=== PATIENT | male | born 1955 | race Caucasian/White ===

== ENCOUNTER 2017-06-11 05:06 | Emergency (ER) | payer MEDICAID, OTHER ==
[~2017-06-11] VITALS: Ht 180.3 cm; Wt 99.8 kg
[~2017-06-11 05:06] MED LIST: OXYC-589 PO
[2017-06-11] MEDS ORDERED: NITROGLYCERIN 0.4 MG SL TAB SL ONE (05:45)
[2017-06-11 06:35] LABS: Basophils # (auto) 0 uL; Basophils % (auto) 0.4 % (0.0-2.0); CONDITION Y; Eosinophils # (auto) 0.4 uL; Eosinophils % (auto) 4.6 % (0.0-7.0); Hematocrit 41.8 % (41.0-53.0); Hemoglobin 14.4 g/dL (13.5-17.5); Lymphocytes # (auto) 1.3 uL; Lymphocytes % (auto) 13.6 % (10.0-50.0); Mean Corpuscular Hemoglobin 30.8 pg (28.0-32.0); Mean Corpuscular Hgb Conc. 34.5 g/dL (32.0-36.0); Mean Corpuscular Volume 89.1 fL (80.0-100.0); Mean Platelet Volume 8.3 fL (7.4-10.4); Monocytes # (auto) 0.9 uL; Monocytes % (auto) 8.8 % (0.0-12.0); Neutrophils # (auto) 7.1 uL; Neutrophils % (auto) 72.6 % (37.0-80.0); Platelet Count (auto) 194 10^3/uL (140-450); Red Cell Distribution Width 13.9 % (11.6-16.0); White Blood Cell 9.8 10^3/uL (4.4-10.8)
[2017-06-11 06:57] LABS: INR 0.94 (0.9-1.15); Partial Thromboplastin Time 26.1 sec (22.64-33.71); Prothrombin Time 10.2 sec (9.37-12.3)
[2017-06-11 07:08] LABS: Albumin 3.7 g/dL (3.4-5.0); Alkaline Phosphatase 71 U/L (45-117); Anion Gap 9 (5-15); Aspartate Aminotransferase 18 U/L (15-37); BUN/Creatinine Ratio 19.8; Bilirubin, Total 0.8 mg/dL (0.2-1.0); Blood Urea Nitrogen 19 mg/dL (7-18); Carbon Dioxide 22 mmol/L (21-32); Chloride 107 mmol/L (98-107); GFR African American 102 mL/min; GFR Non-African American 84 mL/min; Glucose 112 mg/dL (74-106); Magnesium 2.5 mg/dL (1.6-2.6); Potassium 3.8 mmol/L (3.5-5.1); Sodium 138 mmol/L (136-145); Total Protein 7.1 g/dL (6.4-8.2)
[2017-06-11 07:54] VITALS: BP 141/73
[2017-06-11] MEDS ORDERED: IOHEXOL 350 MG/ML 100ML IJ ONE (08:13)
[2017-06-11 08:57] LABS: B-Type Natriuretic Peptide 23.1 pg/mL (0-100); Temperature: 23.5 C (20.0-25.0)
== END 2017-06-11 10:02 | disposition home or self-care (01) ==
LOC: ER 05:06
DX: R07.89 Other chest pain (principal); M54.9 Dorsalgia, unspecified; R06.02 Shortness of breath; Z85.841 Personal history of malignant neoplasm of brain
CPT/HCPCS: 36415; 71010; 71275; 80053; 83735; 83880; 84484; 85025; 85379; 85610; 85730; 93005; 99285; Q9967

== ENCOUNTER 2017-07-10 23:19 | Emergency (ER) | payer OTHER ==
[~2017-07-10] VITALS: Ht 180.3 cm; Wt 99.8 kg
[2017-07-11 00:30] LABS: Basophils # (auto) 0.1 uL; Basophils % (auto) 0.8 % (0.0-2.0); Eosinophils # (auto) 0.4 uL; Eosinophils % (auto) 4.7 % (0.0-7.0); Hematocrit 45.8 % (41.0-53.0); Hemoglobin 15.2 g/dL (13.5-17.5); Lymphocytes # (auto) 1.4 uL; Lymphocytes % (auto) 17.7 % (10.0-50.0); Mean Corpuscular Hemoglobin 29.5 pg (28.0-32.0); Mean Corpuscular Hgb Conc. 33.1 g/dL (32.0-36.0); Mean Corpuscular Volume 88.9 fL (80.0-100.0); Mean Platelet Volume 7.5 fL (7.4-10.4); Monocytes # (auto) 0.6 uL; Monocytes % (auto) 7.9 % (0.0-12.0); Neutrophils # (auto) 5.6 uL; Neutrophils % (auto) 68.9 % (37.0-80.0); Platelet Count (auto) 187 10^3/uL (140-450); Red Cell Distribution Width 12.9 % (11.6-16.0); White Blood Cell 8.1 10^3/uL (4.4-10.8)
[2017-07-11 00:44] LABS: INR 0.95 (0.9-1.15); Partial Thromboplastin Time 25.4 sec (22.64-33.71); Prothrombin Time 10.4 sec (9.37-12.3)
[2017-07-11 00:53] LABS: Albumin 3.9 g/dL (3.4-5.0); BUN/Creatinine Ratio 13.8; Calcium 8.8 mg/dL (8.5-10.1); Potassium 3.8 mmol/L (3.5-5.1)
[2017-07-11 00:56] LABS: Total Protein 7.5 g/dL (6.4-8.2)
[2017-07-11] MEDS ORDERED: SODIUM CHLORIDE 0.9% 1,000 ML IV ONE (08:01)
[2017-07-11] MEDS ORDERED: METOCLOPRAMIDE HCL 5MG/ml INJ 2ml VIAL IV ONE (08:15)
[2017-07-11] MEDS ORDERED: KETOROLAC TROMETH 30 MG/ML 1ML VIAL IV ONE (08:15)
[2017-07-11 09:58] VITALS: BP 130/91
== END 2017-07-11 09:48 | disposition home or self-care (01) ==
LOC: ER 23:19
DX: R51 Headache (principal); I10 Essential (primary) hypertension; Z86.011 Personal history of benign neoplasm of the brain; Z86.73 Personal history of transient ischemic attack (TIA), and cerebral infarction without residual deficits
CPT/HCPCS: 36415; 70450; 71020; 80053; 83735; 85025; 85610; 85730; 93005; 94761; 96361; 96374; 96375; 99285; J1885; J2765; J7030

== ENCOUNTER 2018-01-23 17:27 | Inpatient (IN) | payer OTHER ==
[~2018-01-23] VITALS: Ht 180.3 cm; Wt 102.0 kg
[2018-01-23 19:09] LABS: Basophils # (auto) 0.1 uL; Basophils % (auto) 1.5 % (0.0-2.0); Eosinophils # (auto) 0.3 uL; Eosinophils % (auto) 4.1 % (0.0-7.0); Hematocrit 45.1 % (41.0-53.0); Lymphocytes # (auto) 1.8 uL; Lymphocytes % (auto) 23.7 % (10.0-50.0); Mean Corpuscular Hgb Conc. 33.2 g/dL (32.0-36.0); Mean Corpuscular Volume 90.2 fL (80.0-100.0); Monocytes # (auto) 0.5 uL; Monocytes % (auto) 7.3 % (0.0-12.0); Neutrophils # (auto) 4.8 uL; Neutrophils % (auto) 63.4 % (37.0-80.0); Platelet Count (auto) 183 10^3/uL (140-450); Red Cell Distribution Width 13.8 % (11.8-14.3); White Blood Cell 7.5 10^3/uL (4.4-10.8)
[2018-01-23 19:44] LABS: Alanine Aminotransferase 42 U/L (16-61); Albumin 4.1 g/dL (3.4-5.0); Alkaline Phosphatase 69 U/L (45-117); Anion Gap 9 (5-15); Aspartate Aminotransferase 25 U/L (15-37); BUN/Creatinine Ratio 14.7; Bilirubin, Total 0.8 mg/dL (0.2-1.0); Blood Urea Nitrogen 15 mg/dL (7-18); Carbon Dioxide 24 mmol/L (21-32); Chloride 106 mmol/L (98-107); GFR African American 95 mL/min; GFR Non-African American 78 mL/min; Glucose 120 mg/dL (74-106); Magnesium 2.7 mg/dL (1.6-2.6); Potassium 3.7 mmol/L (3.5-5.1); Sodium 139 mmol/L (136-145); Total Protein 7.7 g/dL (6.4-8.2)
[2018-01-23] MEDS ORDERED: MORPHINE SULFATE 4 MG/ML SYR/VIAL IV ONE (21:00)
[2018-01-23] MEDS ORDERED: ONDANSETRON HCL 4 MG/2 ML VIAL IV ONE (21:00)
[2018-01-23] MEDS ORDERED: ASPirin 325 MG TAB PO ONE (21:00)
[2018-01-24] MEDS ORDERED: ASPirin 81 mg TAB ONE (01:55)
[2018-01-24] MEDS ORDERED: ASPirin 81 mg TAB PO ONE (02:00)
[2018-01-24 02:20] LABS: Urine Bacteria NONE SEEN /hpf (None Seen); Urine Blood Negative /uL (Negative); Urine Mucus FEW (None Seen); Urine Specific Gravity 1.027 (1.001-1.035); Urine WBC 2 /hpf (0 - 3)
[2018-01-24] MEDS ORDERED: NITROGLYCERIN 0.4 MG SL TAB SL PRN (02:45)
[2018-01-24] MEDS ORDERED: ONDANSETRON HCL 4 MG/2 ML VIAL IV PRN (02:45)
[2018-01-24] MEDS ORDERED: ACETAMINOPHEN 325 MG TAB PO PRN (02:45)
[2018-01-24] MEDS ORDERED: cloNIDine HCL 0.1 MG TAB PO PRN (02:45)
[2018-01-24] MEDS ORDERED: MORPHINE SULFATE 4 MG/ML SYR/VIAL IV PRN (02:45)
[2018-01-24] MEDS ORDERED: HYDROcodone-ACET 5/325MG TAB PO PRN (02:45)
[2018-01-24] MEDS ORDERED: TEMAZEPAM 15 MG CAP PO PRN (02:45)
[2018-01-24 05:00] VITALS: BP 143/81
[2018-01-24 05:30] VITALS: BP 143/81
[2018-01-24 08:44] VITALS: BP 131/76
[2018-01-24] MEDS ORDERED: ENOXAPARIN SOD 40 MG/0.4 ML SYRINGE SC SCH (10:00)
[2018-01-24] MEDS ORDERED: ASPirin 81 mg TAB PO SCH (10:00)
[2018-01-24] MEDS ORDERED: METOPROLOL TARTRATE 25 MG TAB PO SCH (10:00)
[2018-01-24] MEDS ORDERED: FAMOTIDINE 20 MG TAB PO SCH (10:00)
[2018-01-24 12:00] VITALS: BP 136/91
[2018-01-24] MEDS ORDERED: AML5T PO (13:44)
[2018-01-24 14:00] VITALS: BP 136/91
== END 2018-01-24 15:00 | disposition home or self-care (01) | DRG 203 ==
LOC: ER 17:40 → TELE 17:41 → TELE-WESTW 01-24 04:57
PROVIDERS: ADMIT Nurse Practitioner; ATTEND Internal Medicine
DX: R07.89 Other chest pain (principal); I10 Essential (primary) hypertension; G47.00 Insomnia, unspecified; E66.9 Obesity, unspecified; Z68.31 Body mass index [BMI] 31.0-31.9, adult; Z83.3 Family history of diabetes mellitus; Z85.72 Personal history of non-Hodgkin lymphomas; Z86.711 Personal history of pulmonary embolism; Z85.841 Personal history of malignant neoplasm of brain; Z85.840 Personal history of malignant neoplasm of eye
CPT/HCPCS: 36415; 70450; 71046; 80053; 81001; 83735; 83880; 84484; 85025; 85379; 93005; 93306; 96374; 96375; J2405

== ENCOUNTER 2018-06-28 07:58 | Emergency (ER) | payer OTHER ==
[~2018-06-28] VITALS: Ht 180.3 cm; Wt 104.3 kg
[~2018-06-28 07:58] MED LIST changes: +AML5T PO; -OXYC-589 PO
[2018-06-28 08:38] LABS: Basophils # (auto) 0.1 uL; Basophils % (auto) 1.2 % (0.0-2.0); Eosinophils # (auto) 0.3 uL; Eosinophils % (auto) 2.9 % (0.0-7.0); Hematocrit 43.4 % (41.0-53.0); Lymphocytes # (auto) 1.1 uL; Lymphocytes % (auto) 11.8 % (10.0-50.0); Mean Corpuscular Hgb Conc. 34.6 g/dL (32.0-36.0); Mean Corpuscular Volume 89.6 fL (80.0-100.0); Monocytes # (auto) 0.8 uL; Monocytes % (auto) 8.7 % (0.0-12.0); Neutrophils # (auto) 7.3 uL; Neutrophils % (auto) 75.4 % (37.0-80.0); Platelet Count (auto) 177 10^3/uL (140-450); Red Blood Cells 4.84 10^6/uL (4.5-5.90); Red Cell Distribution Width 13.9 % (11.8-14.3); White Blood Cell 9.7 10^3/uL (4.4-10.8)
[2018-06-28] MEDS ORDERED: ONDANSETRON HCL 4 MG/2 ML VIAL IV ONE (08:45)
[2018-06-28] MEDS ORDERED: MORPHINE SULFATE 4 MG/ML SYR/VIAL IV ONE (08:45)
[2018-06-28 09:12] LABS: Alanine Aminotransferase 42 U/L (16-61); Albumin 3.8 g/dL (3.4-5.0); Alkaline Phosphatase 80 U/L (45-117); Anion Gap 8 (5-15); Aspartate Aminotransferase 20 U/L (15-37); BUN/Creatinine Ratio 11.7; Bilirubin, Total 1.4 mg/dL (0.2-1.0); Blood Urea Nitrogen 14 mg/dL (7-18); Calcium 8.5 mg/dL (8.5-10.1); Carbon Dioxide 22 mmol/L (21-32); Chloride 108 mmol/L (98-107); GFR African American 78 mL/min; GFR Non-African American 65 mL/min; Glucose 117 mg/dL (74-106); Sodium 138 mmol/L (136-145); Total Protein 7.9 g/dL (6.4-8.2)
[2018-06-28 09:14] LABS: Amylase 42 U/L (25-115); Lipase 142 U/L (73-393)
[2018-06-28] MEDS ORDERED: SODIUM CHLORIDE 0.9% 1,000 ML IV ONE (09:15)
[2018-06-28] MEDS ORDERED: HYDROcodone-ACET 5/325MG TAB PO ONE (11:15)
[2018-06-28 12:03] VITALS: BP 137/79
[2018-06-28 12:37] LABS: Urine Bacteria NONE SEEN /hpf (None Seen); Urine Blood Negative /uL (Negative); Urine Mucus FEW (None Seen); Urine Specific Gravity 1.024 (1.001-1.035); Urine WBC 3 /hpf (0 - 3)
== END 2018-06-28 13:25 | disposition home or self-care (01) ==
LOC: ER 07:58
DX: K80.20 Calculus of gallbladder without cholecystitis without obstruction (principal); R07.89 Other chest pain; R11.2 Nausea with vomiting, unspecified
CPT/HCPCS: 36415; 74176; 80053; 81001; 82150; 83690; 84484; 85025; 93005; 96361; 96374; 96375; 99285; J2270; J2405; J7030

== ENCOUNTER 2018-09-15 06:16 | Inpatient (IN) | payer OTHER ==
[~2018-09-15] VITALS: Ht 180.3 cm; Wt 99.3 kg
[2018-09-15 09:14] LABS: Basophils # (auto) 0.1 uL; Basophils % (auto) 1.1 % (0.0-2.0); Eosinophils # (auto) 0.1 uL; Eosinophils % (auto) 1.2 % (0.0-7.0); Hematocrit 44.1 % (41.0-53.0); Hemoglobin 14.8 g/dL (13.5-17.5); Lymphocytes # (auto) 1.7 uL; Lymphocytes % (auto) 15.8 % (10.0-50.0); Mean Corpuscular Hemoglobin 30.4 pg (28.0-32.0); Mean Corpuscular Hgb Conc. 33.5 g/dL (32.0-36.0); Mean Corpuscular Volume 90.7 fL (80.0-100.0); Monocytes # (auto) 0.7 uL; Monocytes % (auto) 6.7 % (0.0-12.0); Neutrophils % (auto) 75.2 % (37.0-80.0); Platelet Count (auto) 186 10^3/uL (140-450); Red Blood Cells 4.86 10^6/uL (4.5-5.90); White Blood Cell 10.7 10^3/uL (4.4-10.8)
[2018-09-15] MEDS ORDERED: HEPARIN SODIUM (PORCINE) 5000 UNITS/ML 1ML VIAL IV ONE (09:15)
[2018-09-15 09:26] LABS: Calcium 9.1 mg/dL (8.5-10.1)
[2018-09-15 09:29] LABS: BUN/Creatinine Ratio 15.7; Total Protein 8.1 g/dL (6.4-8.2)
[2018-09-15] MEDS ORDERED: NITROGLYCERIN 0.4 MG SL TAB SL PRN (10:00)
[2018-09-15] MEDS ORDERED: TEMAZEPAM 15 MG CAP PO PRN (10:00)
[2018-09-15] MEDS ORDERED: MORPHINE SULFATE 4 MG/ML SYR/VIAL IV PRN ×2 (10:00)
[2018-09-15] MEDS ORDERED: ACETAMINOPHEN 325 MG TAB PO PRN (10:00)
[2018-09-15] MEDS ORDERED: DOCUSATE SOD 100 MG CAP PO PRN (10:00)
[2018-09-15] MEDS: ASCORBIC ACID 500 MG TAB PO SCH ×2 (11:01→22:10)
[2018-09-15] MEDS: ENOXAPARIN SOD 100 MG/1 ML SYRINGE SC SCH ×2 (11:01→22:10)
[2018-09-15] MEDS: ZINC SULFATE 220mg CAP or TAB PO SCH (13:57)
[2018-09-15] MEDS: MULTIPLE VITAMIN TAB PO SCH (13:57)
[2018-09-15] MEDS: SODIUM CHLOR 0.9% PF (SALINE LOCK) 10ML VIAL/SYR IV SCH ×2 (14:32→22:10)
[2018-09-15] MEDS: HYDROcodone-ACET 5/325MG TAB PO PRN (23:47)
[2018-09-16] VITALS (7 sets, daily range): BP systolic 126–150; BP diastolic 75–80
[2018-09-16 06:47] LABS: Basophils # (auto) 0.1 uL; Basophils % (auto) 0.9 % (0.0-2.0); Eosinophils # (auto) 0.2 uL; Hematocrit 43.3 % (41.0-53.0); Hemoglobin 14.6 g/dL (13.5-17.5); Lymphocytes # (auto) 1.7 uL; Lymphocytes % (auto) 21.5 % (10.0-50.0); Mean Corpuscular Hemoglobin 30.3 pg (28.0-32.0); Mean Corpuscular Hgb Conc. 33.8 g/dL (32.0-36.0); Mean Corpuscular Volume 89.5 fL (80.0-100.0); Monocytes # (auto) 0.5 uL; Monocytes % (auto) 6.3 % (0.0-12.0); Neutrophils # (auto) 5.6 uL; Neutrophils % (auto) 69.3 % (37.0-80.0); Platelet Count (auto) 189 10^3/uL (140-450); Red Blood Cells 4.84 10^6/uL (4.5-5.90); Red Cell Distribution Width 13.4 % (11.8-14.3); White Blood Cell 8.1 10^3/uL (4.4-10.8)
[2018-09-16 06:52] LABS: INR 1.01 (0.9-1.15); Prothrombin Time 10.8 sec (9.27-12.13)
[2018-09-16 06:55] LABS: Albumin 3.6 g/dL (3.4-5.0); Calcium 8.7 mg/dL (8.5-10.1); Potassium 3.8 mmol/L (3.5-5.1)
[2018-09-16 06:59] LABS: BUN/Creatinine Ratio 18.8; Bilirubin, Total 1.3 mg/dL (0.2-1.0); Total Protein 7.2 g/dL (6.4-8.2)
[2018-09-16] MEDS: SODIUM CHLOR 0.9% PF (SALINE LOCK) 10ML VIAL/SYR IV SCH ×3 (07:08→22:00)
[2018-09-16] MEDS: ENOXAPARIN SOD 100 MG/1 ML SYRINGE SC SCH ×2 (10:21→21:27)
[2018-09-16] MEDS: ASCORBIC ACID 500 MG TAB PO SCH ×2 (10:21→21:27)
[2018-09-16] MEDS: ZINC SULFATE 220mg CAP or TAB PO SCH (10:21)
[2018-09-16] MEDS: MULTIPLE VITAMIN TAB PO SCH (10:24)
[2018-09-16] MEDS ORDERED: amLODIPine BESYLATE 5 MG TAB PO ONE (10:45)
[2018-09-16] MEDS: ONDANSETRON HCL 4 MG/2 ML VIAL IV PRN ×2 (11:05→18:36)
[2018-09-16] MEDS: HYDROcodone-ACET 5/325MG TAB PO PRN ×2 (11:09→16:46)
[2018-09-16 14:04] LABS: INR 1.01 (0.9-1.15); Prothrombin Time 10.8 sec (9.27-12.13)
[2018-09-16] MEDS ORDERED: WARFARIN SODIUM 5 MG TAB PO SCH (17:00)
[2018-09-16 17:23] LABS: Urine Bacteria NONE SEEN /hpf (None Seen); Urine Blood Negative /uL (Negative); Urine Specific Gravity 1.027 (1.001-1.035); Urine WBC 2 /hpf (0 - 3)
[2018-09-17 05:00] VITALS: BP 142/77
[2018-09-17] MEDS: SODIUM CHLOR 0.9% PF (SALINE LOCK) 10ML VIAL/SYR IV SCH (05:54)
[2018-09-17 06:22] LABS: Basophils # (auto) 0.1 uL; Basophils % (auto) 0.7 % (0.0-2.0); Eosinophils # (auto) 0.2 uL; Eosinophils % (auto) 2.2 % (0.0-7.0); Hematocrit 44.1 % (41.0-53.0); Hemoglobin 15.3 g/dL (13.5-17.5); Lymphocytes # (auto) 1.7 uL; Lymphocytes % (auto) 17.8 % (10.0-50.0); Mean Corpuscular Hemoglobin 30.8 pg (28.0-32.0); Mean Corpuscular Hgb Conc. 34.6 g/dL (32.0-36.0); Monocytes # (auto) 0.6 uL; Monocytes % (auto) 6.1 % (0.0-12.0); Neutrophils # (auto) 6.8 uL; Neutrophils % (auto) 73.2 % (37.0-80.0); Nucleated Red Blood Cells % 0.1 %; Platelet Count (auto) 204 10^3/uL (140-450); Red Blood Cells 4.95 10^6/uL (4.5-5.90); Red Cell Distribution Width 13.9 % (11.8-14.3); White Blood Cell 9.3 10^3/uL (4.4-10.8)
[2018-09-17 06:32] LABS: Partial Thromboplastin Time 35.4 sec (23.78-33.04); Prothrombin Time 10.7 sec (9.27-12.13)
[2018-09-17 06:35] LABS: Albumin 3.5 g/dL (3.4-5.0); Calcium 9.1 mg/dL (8.5-10.1)
[2018-09-17 06:38] LABS: BUN/Creatinine Ratio 17.9
[2018-09-17 06:40] LABS: Bilirubin, Total 1.1 mg/dL (0.2-1.0); Total Protein 7.2 g/dL (6.4-8.2)
[2018-09-17 09:14] VITALS: BP 138/67
[2018-09-17] MEDS ORDERED: amLODIPine BESYLATE 5 MG TAB PO SCH (10:00)
[2018-09-17] MEDS: ASCORBIC ACID 500 MG TAB PO SCH (10:10)
[2018-09-17] MEDS: ENOXAPARIN SOD 100 MG/1 ML SYRINGE SC SCH (10:12)
[2018-09-17] MEDS: MULTIPLE VITAMIN TAB PO SCH (10:12)
[2018-09-17] MEDS: ZINC SULFATE 220mg CAP or TAB PO SCH (10:12)
[2018-09-17] MEDS: ONDANSETRON HCL 4 MG/2 ML VIAL IV PRN (11:20)
[2018-09-17 11:36] VITALS: BP 138/67
== END 2018-09-17 12:50 | disposition home or self-care (01) | DRG 197 ==
LOC: ER 06:16 → TELE 06:17 → TELE-CENTR 20:30
PROVIDERS: ADMIT Internal Medicine; ATTEND Internal Medicine
DX: I82.431 Acute embolism and thrombosis of right popliteal vein (principal); I12.9 Hypertensive chronic kidney disease with stage 1 through stage 4 chronic kidney disease, or unspecified chronic kidney disease; I82.441 Acute embolism and thrombosis of right tibial vein; N18.2 Chronic kidney disease, stage 2 (mild); Z80.3 Family history of malignant neoplasm of breast; Z85.72 Personal history of non-Hodgkin lymphomas; Z86.711 Personal history of pulmonary embolism; Z86.718 Personal history of other venous thrombosis and embolism; Z90.49 Acquired absence of other specified parts of digestive tract; Z92.21 Personal history of antineoplastic chemotherapy
CPT/HCPCS: 36415; 70450; 80053; 81001; 85025; 85610; 85730; 87081; 87086; 93971; 96374; G0378; J2405

== ENCOUNTER 2018-12-10 19:19 | Emergency (ER) | payer MEDICARE, OTHER ==
[~2018-12-10] VITALS: Ht 180.3 cm; Wt 103.9 kg
[2018-12-10 19:47] VITALS: BP 146/73
== END 2018-12-10 21:20 | disposition home or self-care (01) ==
LOC: ER 19:19
DX: S20.212A Contusion of left front wall of thorax, initial encounter (principal); Z79.899 Other long term (current) drug therapy; V49.49XA Driver injured in collision with other motor vehicles in traffic accident, initial encounter; Y92.89 Other specified places as the place of occurrence of the external cause; Y99.8 Other external cause status; Y93.89 Activity, other specified
CPT/HCPCS: 71046

== ENCOUNTER 2019-08-20 22:17 | Emergency (ER) | payer MEDICARE, OTHER ==
[~2019-08-20] VITALS: Ht 180.3 cm; Wt 106.1 kg
[2019-08-21 00:41] VITALS: BP 149/84
[2019-08-21] MEDS ORDERED: methylPREDNISolone SOD SUCC 125 MG/2 ML VL IM ONE (01:45)
== END 2019-08-21 02:45 | disposition home or self-care (01) ==
LOC: ER 22:21
DX: R04.0 Epistaxis (principal); Z79.899 Other long term (current) drug therapy; Z90.49 Acquired absence of other specified parts of digestive tract
CPT/HCPCS: 96372; 99283; J2930

== ENCOUNTER 2020-06-03 10:40 | Emergency (ER) | payer MEDICARE, OTHER ==
[~2020-06-03] VITALS: Ht 180.3 cm; Wt 106.6 kg
[2020-06-03 11:34] LABS: Basophils # (auto) 0.1 10 ^3/uL (0-0.2); Basophils % (auto) 1.1 % (0.0-2.0); Eosinophils # (auto) 0.3 10 ^3/uL (0-0.8); Eosinophils % (auto) 3.8 % (0.0-7.0); Hematocrit 45.1 % (41.0-53.0); Hemoglobin 15.5 g/dL (13.5-17.5); Lymphocytes # (auto) 1.3 10 ^3/uL (0.4-5.4); Lymphocytes % (auto) 17.6 % (10.0-50.0); Mean Corpuscular Hemoglobin 30.3 pg (28.0-32.0); Mean Corpuscular Hgb Conc. 34.3 g/dL (32.0-36.0); Mean Corpuscular Volume 88.4 fL (80.0-100.0); Monocytes # (auto) 0.5 10 ^3/uL (0-1.3); Monocytes % (auto) 6.6 % (0.0-12.0); Neutrophils # (auto) 5.3 10 ^3/uL (1.6-8.6); Neutrophils % (auto) 70.9 % (37.0-80.0); Nucleated Red Blood Cells % 0.1 %; Platelet Count (auto) 175 10^3/uL (140-450); Red Cell Distribution Width 14.7 % (11.8-14.3); White Blood Cell 7.4 10^3/uL (4.4-10.8)
[2020-06-03 11:50] LABS: INR 2.95 (0.9-1.15); Partial Thromboplastin Time 45.6 sec (23.64-32.05)
[2020-06-03 11:55] LABS: Albumin 3.7 g/dL (3.4-5.0); Calcium 8.9 mg/dL (8.5-10.1); Potassium 3.7 mmol/L (3.5-5.1)
[2020-06-03 11:58] LABS: BUN/Creatinine Ratio 11.6; Bilirubin, Total 2.2 mg/dL (0.2-1.0); Total Protein 7.4 g/dL (6.4-8.2)
[2020-06-03] MEDS ORDERED: ACETAMINOPHEN 325 MG TAB PO ONE (13:00)
[2020-06-03 15:55] VITALS: BP 134/76
== END 2020-06-03 15:57 | disposition home or self-care (01) ==
LOC: ER 10:40
DX: M79.662 Pain in left lower leg (principal); M79.661 Pain in right lower leg
CPT/HCPCS: 36415; 80053; 85025; 85379; 85610; 85730; 93970

== ENCOUNTER 2020-10-27 07:09 | Inpatient (IN) | payer MEDICARE, OTHER ==
[~2020-10-27] VITALS: Ht 180.3 cm; Wt 92.0 kg
[2020-10-27] MEDS ORDERED: SODIUM CHLORIDE 0.9% 500 ML IV ONE (07:30)
[2020-10-27 08:19] LABS: Basophils # (auto) 0 10 ^3/uL (0-0.2); Basophils % (auto) 0.4 % (0.0-2.0); Eosinophils # (auto) 0 10 ^3/uL (0-0.8); Hemoglobin 16.3 g/dL (13.5-17.5); Lymphocytes % (auto) 18.8 % (10.0-50.0); Mean Corpuscular Hemoglobin 29.4 pg (28.0-32.0); Mean Corpuscular Hgb Conc. 33.2 g/dL (32.0-36.0); Mean Corpuscular Volume 88.5 fL (80.0-100.0); Monocytes # (auto) 0.4 10 ^3/uL (0-1.3); Monocytes % (auto) 7.6 % (0.0-12.0); Neutrophils # (auto) 3.8 10 ^3/uL (1.6-8.6); Neutrophils % (auto) 73.2 % (37.0-80.0); Nucleated Red Blood Cells % 0.1 %; Platelet Count (auto) 156 10^3/uL (140-450); Red Blood Cells 5.54 10^6/uL (4.5-5.90); White Blood Cell 5.2 10^3/uL (4.4-10.8)
[2020-10-27 08:39] LABS: Albumin 3.4 g/dL (3.4-5.0); BUN/Creatinine Ratio 16.2; Magnesium 3.2 mg/dL (1.6-2.6); Potassium 3.6 mmol/L (3.5-5.1)
[2020-10-27 08:52] LABS: Bilirubin, Total 1.4 mg/dL (0.2-1.0); CRP High Sensitivity 2.94 mg/dL (< 0.3); Total Protein 7.8 g/dL (6.4-8.2)
[2020-10-27 09:25] LABS: INR 3.18 (0.9-1.15); Partial Thromboplastin Time 44.7 sec (23.0-31.2)
[2020-10-27] MEDS ORDERED: REMDESIVIR PER PHARMACY IV SCH (11:45)
[2020-10-27] MEDS ORDERED: cefTRIAXone 1GM/50ML D5W 50 ML IV ONE (12:15)
[2020-10-27] MEDS ORDERED: LABETALOL HCL 5 MG/ML 4ML SYRINGE IV PRN (12:15)
[2020-10-27] MEDS ORDERED: MORPHINE SULF INJ 2 MG/ML SYRINGE 1ML IV PRN (12:15)
[2020-10-27] MEDS ORDERED: NITROGLYCERIN 0.4 MG SL TAB SL PRN (12:15)
[2020-10-27] MEDS ORDERED: ACETAMINOPHEN 500 MG TAB PO PRN (12:15)
[2020-10-27 15:23] LABS: Urine Bacteria FEW /hpf (None Seen); Urine Blood TRACE /uL (Negative); Urine Mucus FEW (None Seen); Urine Specific Gravity 1.026 (1.001-1.035); Urine WBC 2 /hpf (0 - 3)
[2020-10-27] MEDS: SODIUM CHLORIDE 0.9% 1,000 ML IV SCH ×2 (18:43→22:02)
[2020-10-27] MEDS: BUDESONIDE (INHALATION) 180 MCG IH IN SCH (20:40)
[2020-10-27] MEDS: ALBUTEROL SULF HFA 90MCG INH 200DOSE IN SCH (20:41)
[2020-10-28 03:01] VITALS: BP 122/71
[2020-10-28] MEDS: ALBUTEROL SULF HFA 90MCG INH 200DOSE IN SCH (06:00)
[2020-10-28 06:09] LABS: INR 3.46 (0.9-1.15)
[2020-10-28 06:10] LABS: Basophils # (auto) 0.1 10 ^3/uL (0-0.2); Basophils % (auto) 0.7 % (0.0-2.0); Eosinophils # (auto) 0 10 ^3/uL (0-0.8); Hematocrit 42.9 % (41.0-53.0); Hemoglobin 14.5 g/dL (13.5-17.5); Lymphocytes # (auto) 0.7 10 ^3/uL (0.4-5.4); Lymphocytes % (auto) 10.1 % (10.0-50.0); Mean Corpuscular Hemoglobin 29.8 pg (28.0-32.0); Mean Corpuscular Hgb Conc. 33.8 g/dL (32.0-36.0); Monocytes # (auto) 0.3 10 ^3/uL (0-1.3); Monocytes % (auto) 4.5 % (0.0-12.0); Neutrophils # (auto) 5.8 10 ^3/uL (1.6-8.6); Neutrophils % (auto) 84.7 % (37.0-80.0); Nucleated Red Blood Cells % 0.2 %; Platelet Count (auto) 147 10^3/uL (140-450); Red Blood Cells 4.87 10^6/uL (4.5-5.90); White Blood Cell 6.9 10^3/uL (4.4-10.8)
[2020-10-28 06:13] LABS: Potassium 3.6 mmol/L (3.5-5.1)
[2020-10-28 06:20] LABS: Albumin 2.8 g/dL (3.4-5.0); BUN/Creatinine Ratio 19.5; Calcium 7.7 mg/dL (8.5-10.1)
[2020-10-28 06:23] LABS: Total Protein 6.5 g/dL (6.4-8.2)
[2020-10-28] MEDS: BUDESONIDE (INHALATION) 180 MCG IH IN SCH ×2 (07:10→21:42)
[2020-10-28] MEDS: cefTRIAXone 1GM/50ML D5W 50 ML IV SCH (09:45)
[2020-10-28] MEDS: SODIUM CHLORIDE 0.9% 1,000 ML IV SCH (09:45)
[2020-10-28] MEDS: CHOLECALCIFEROL (VITD3) 2,000 UNIT CAP PO SCH (10:00)
[2020-10-28] MEDS: ASCORBIC ACID 1,000 MG TAB PO SCH (10:00)
[2020-10-28] MEDS: ZINC SULFATE 220mg CAP or TAB PO SCH (10:00)
[2020-10-28] MEDS: AZITHROMYCIN 500MG/D5WorNS 250ml IV SCH (11:04)
[2020-10-28] MEDS: DexAMETHasone SOD PHOS 10MG/1ML VIAL INJ IV SCH (11:37)
[2020-10-28] MEDS ORDERED: POTASSIUM CHL 20 Meq TABLET PO ONE (12:15)
[2020-10-28] MEDS ORDERED: ENOXAPARIN SOD 40 MG/0.4 ML SYRINGE SC ONE (12:15)
[2020-10-28] MEDS ORDERED: FUROSEMIDE 40 MG/4 ML VIAL IV ONE (12:15)
--- NOTE | 2020-10-28 12:15 | NUR ---
Telemetry admit from ER SANTINO PAZ admitted to Telemetry unit after SBAR received. Patient oriented to MARK BLOOM RN primary RN, unit, room, bed, and unit policies regarding patient care and visiting hours. Patient now on continuous telemetry monitoring, tele box #86 and telemetry reading on arrival to unit is ST. Patient placed on bedside oxygen, weighed by bedscale and encouraged to call if they need something. All questions and concerns addressed, patient verbalized understanding.
[2020-10-28 13:29] VITALS: BP 133/96
[2020-10-28] MEDS ORDERED: WARF4TAB33 PO (14:28)
--- NOTE | 2020-10-28 14:49 | NUR ---
Hospitalist MD Handley at bedside, aware of patient status. Per MD Handley obtain consents for plasma and remdesivir. Consents obtained and place in front of chart. Will cont to monitor patient.
[2020-10-28] MEDS ORDERED: guaiFENesin-DM 100/10mg/5ml SYR PO PRN (15:00)
--- NOTE | 2020-10-28 15:27 | NUR ---
Mendoza catheter insertion Patient assessed and determined to be in need of mendoza catheter. Order obtained from MD Handley. Patient educated on catheter and reason for insertion. All questions answered. Mendoza catheter 16 guage [place] inserted with clean sterile technique. Patient tolerated well.
[2020-10-28 16:28] VITALS: BP 117/68
[2020-10-28] MEDS ORDERED: REMDESIVIR 200 MG in NS 210ml LOADING DOSE ADULT IV ONE (17:00)
--- NOTE | 2020-10-28 17:50 | NUR ---
REMDESIVIR PRE-INFUSION BP:116/68 HR:86 15 MIN POST INFUSION BP:105/66 HR:84
--- NOTE | 2020-10-28 18:41 | NUR ---
REMDESIVIR POST TRANSFUSION BP 94/65 HR:86
--- NOTE | 2020-10-28 19:44 | NUR ---
Opening Shift Note Assumed care of patient. Patient is asleep. No S/S of respiratory distress noted. Respirations are regular and non-labored on 10 lpm Oxymizer. Bed is in lowest position and locked, bed rails 2x, call light is within reach. Pt will be instructed on POC and to call for assistance as needed. Will continue to monitor for changes Q1hr and PRN.
[2020-10-28 20:00] VITALS: BP 106/62
[2020-10-28] MEDS: ALBUTEROL SULF HFA 90MCG INH 200DOSE IN PRN (21:43)
[2020-10-28 22:00] VITALS: BP 106/62
[2020-10-28] MEDS: ENOXAPARIN SOD 100 MG/1 ML SYRINGE SC SCH (22:20)
[2020-10-29 05:00] VITALS: BP 122/68
--- NOTE | 2020-10-29 07:30 | NUR ---
Opening Shift Note Assumed care of patient, awake and alert. No S/S of distress/SOB or pain. Instructed on POC and to call for assist PRN, will continue to monitor for changes Q1hr and PRN. Fall precautions in place per safety protocol.
[2020-10-29 07:44] LABS: Basophils # (auto) 0 10 ^3/uL (0-0.2); Basophils % (auto) 0.2 % (0.0-2.0); Eosinophils # (auto) 0 10 ^3/uL (0-0.8); Hemoglobin 14.6 g/dL (13.5-17.5); Lymphocytes # (auto) 0.4 10 ^3/uL (0.4-5.4); Lymphocytes % (auto) 6.1 % (10.0-50.0); Mean Corpuscular Hemoglobin 29.3 pg (28.0-32.0); Mean Corpuscular Hgb Conc. 33.3 g/dL (32.0-36.0); Monocytes # (auto) 0.2 10 ^3/uL (0-1.3); Monocytes % (auto) 3.5 % (0.0-12.0); Neutrophils # (auto) 6.2 10 ^3/uL (1.6-8.6); Neutrophils % (auto) 90.2 % (37.0-80.0); Platelet Count (auto) 148 10^3/uL (140-450); Red Cell Distribution Width 14.8 % (11.8-14.3); White Blood Cell 6.9 10^3/uL (4.4-10.8)
[2020-10-29 08:03] LABS: BUN/Creatinine Ratio 29.5; Calcium 8.7 mg/dL (8.5-10.1); Potassium 3.5 mmol/L (3.5-5.1)
[2020-10-29 09:00] VITALS: BP 127/71
[2020-10-29] MEDS: ALBUTEROL SULF HFA 90MCG INH 200DOSE IN PRN ×2 (09:32→22:18)
[2020-10-29] MEDS: BUDESONIDE (INHALATION) 180 MCG IH IN SCH ×2 (09:32→22:18)
[2020-10-29] MEDS: ENOXAPARIN SOD 100 MG/1 ML SYRINGE SC SCH (09:45)
[2020-10-29] MEDS: DexAMETHasone SOD PHOS 10MG/1ML VIAL INJ IV SCH (09:45)
[2020-10-29] MEDS: CHOLECALCIFEROL (VITD3) 2,000 UNIT CAP PO SCH (09:45)
[2020-10-29] MEDS: cefTRIAXone 1GM/50ML D5W 50 ML IV SCH (09:45)
[2020-10-29] MEDS: ZINC SULFATE 220mg CAP or TAB PO SCH (09:45)
[2020-10-29] MEDS: ASCORBIC ACID 1,000 MG TAB PO SCH (09:45)
[2020-10-29] MEDS ORDERED: ENOXAPARIN SOD 40 MG/0.4 ML SYRINGE SC SCH (10:00)
[2020-10-29] MEDS: AZITHROMYCIN 500MG/D5WorNS 250ml IV SCH (10:54)
[2020-10-29] MEDS ORDERED: FUROSEMIDE 40 MG/4 ML VIAL IV ONE (11:15)
[2020-10-29 11:18] LABS: INR 3.49 (0.9-1.15)
[2020-10-29 13:00] VITALS: BP 123/54
[2020-10-29 16:59] VITALS: BP 114/70
[2020-10-29] MEDS ORDERED: REMDESIVIR 100 MG in SODIUM CHL 0.9% 250 ML IV SCH (17:00)
--- NOTE | 2020-10-29 18:14 | NUR ---
REMDESIVIR PRE-INFUSION BP:112/62 HR:70 15 MIN POST-INFUSION BP:110/68 HR:69
--- NOTE | 2020-10-29 18:54 | NUR ---
REMDESIVIR POST TRANSFUSION BP 117/65 HR:68
--- NOTE | 2020-10-29 19:30 | NUR ---
Opening Shift Note Assumed care of patient. Patient is awake and oriented x 4. No S/S of respiratory distress noted, no pain reported. Respirations are even and non-labored on 11 lpm Oxymizer with SpO2 91%. Bed is in lowest position and locked, bed rails up x 2, call light is within reach. Pt will was instructed on POC and to call for assistance as needed. Will continue to monitor for changes Q1hr and PRN.
[2020-10-29 20:00] VITALS: BP 121/74
[2020-10-29 22:00] VITALS: BP 121/74
[2020-10-30] VITALS (9 sets, daily range): BP systolic 117–133; BP diastolic 62–85
[2020-10-30 05:44] LABS: Basophils # (auto) 0 10 ^3/uL (0-0.2); Basophils % (auto) 0.1 % (0.0-2.0); Eosinophils # (auto) 0 10 ^3/uL (0-0.8); Hematocrit 42.6 % (41.0-53.0); Hemoglobin 14.7 g/dL (13.5-17.5); Lymphocytes # (auto) 0.6 10 ^3/uL (0.4-5.4); Lymphocytes % (auto) 6.6 % (10.0-50.0); Mean Corpuscular Hgb Conc. 34.6 g/dL (32.0-36.0); Mean Corpuscular Volume 86.6 fL (80.0-100.0); Monocytes # (auto) 0.3 10 ^3/uL (0-1.3); Monocytes % (auto) 3.9 % (0.0-12.0); Neutrophils # (auto) 7.5 10 ^3/uL (1.6-8.6); Neutrophils % (auto) 89.4 % (37.0-80.0); Nucleated Red Blood Cells % 0.1 %; Platelet Count (auto) 185 10^3/uL (140-450); Red Blood Cells 4.91 10^6/uL (4.5-5.90); Red Cell Distribution Width 14.6 % (11.8-14.3); White Blood Cell 8.4 10^3/uL (4.4-10.8)
[2020-10-30 06:02] LABS: INR 2.77 (0.9-1.15)
[2020-10-30 06:06] LABS: Potassium 3.4 mmol/L (3.5-5.1)
[2020-10-30 06:14] LABS: BUN/Creatinine Ratio 31.3; Calcium 8.5 mg/dL (8.5-10.1)
--- NOTE | 2020-10-30 07:02 | NUR ---
O2 Increased O2 rate to 15 lpm with SpO2 89-90% via Oxymizer.
[2020-10-30] MEDS: BUDESONIDE (INHALATION) 180 MCG IH IN SCH ×2 (07:30→19:38)
[2020-10-30] MEDS: FUROSEMIDE 40 MG/4 ML VIAL IV SCH (10:33)
[2020-10-30] MEDS: cefTRIAXone 1GM/50ML D5W 50 ML IV SCH (10:33)
[2020-10-30] MEDS: AZITHROMYCIN 500MG/D5WorNS 250ml IV SCH (10:33)
[2020-10-30] MEDS: DexAMETHasone SOD PHOS 10MG/1ML VIAL INJ IV SCH (10:33)
[2020-10-30] MEDS: ZINC SULFATE 220mg CAP or TAB PO SCH (10:34)
[2020-10-30] MEDS: ASCORBIC ACID 1,000 MG TAB PO SCH (10:34)
[2020-10-30] MEDS: CHOLECALCIFEROL (VITD3) 2,000 UNIT CAP PO SCH (10:34)
[2020-10-30] MEDS ORDERED: POTASSIUM CHL 20 Meq TABLET PO ONE (10:45)
--- NOTE | 2020-10-30 11:52 | NUR ---
Nutrition Assessment Est energy needs 4071-6717 kcal (18-20 kcal/kg BW 95.8kg) Est protein needs 78-94g (1-1.2g/kg IBW 78kg) WIll monitor and reassess prn. Addendum: 10/30/20 at [address] Amended: Links added.
[2020-10-30] MEDS ORDERED: WARFARIN SODIUM 2 MG TAB PO ONE (17:00)
--- NOTE | 2020-10-30 17:40 | NUR ---
Received remdesevir from pharmacy but unable to transfuse at this time, plasma going. Time adjusted to accommodate.
--- NOTE | 2020-10-30 19:30 | NUR ---
Opening Shift Note Assumed care of patient, awake and alert. No S/S of distress/SOB or pain. Instructed on POC and to call for assist PRN, will continue to monitor for changes Q1hr and PRN.
[2020-10-30] MEDS: ALBUTEROL SULF HFA 90MCG INH 200DOSE IN PRN (21:13)
[2020-10-30] MEDS: REMDESIVIR IV SCH (21:25)
[2020-10-30] MEDS: SODIUM CHL 0.9% IV SCH (21:25)
--- NOTE | 2020-10-30 21:25 | NUR ---
Remdesivir BP at start 118/68 after 15 minutes the blood pressure is 115/66
[2020-10-31 05:22] VITALS: BP 125/66
[2020-10-31 06:06] LABS: Basophils # (auto) 0 10 ^3/uL (0-0.2); Basophils % (auto) 0.1 % (0.0-2.0); Eosinophils # (auto) 0 10 ^3/uL (0-0.8); Hematocrit 45.6 % (41.0-53.0); Hemoglobin 15.4 g/dL (13.5-17.5); Lymphocytes # (auto) 0.7 10 ^3/uL (0.4-5.4); Lymphocytes % (auto) 7.3 % (10.0-50.0); Mean Corpuscular Hemoglobin 29.3 pg (28.0-32.0); Mean Corpuscular Hgb Conc. 33.7 g/dL (32.0-36.0); Monocytes # (auto) 0.5 10 ^3/uL (0-1.3); Monocytes % (auto) 5.4 % (0.0-12.0); Neutrophils # (auto) 8.4 10 ^3/uL (1.6-8.6); Neutrophils % (auto) 87.2 % (37.0-80.0); Platelet Count (auto) 213 10^3/uL (140-450); Red Blood Cells 5.25 10^6/uL (4.5-5.90); Red Cell Distribution Width 14.5 % (11.8-14.3); White Blood Cell 9.7 10^3/uL (4.4-10.8)
[2020-10-31 06:20] LABS: INR 1.78 (0.9-1.15)
[2020-10-31 06:27] LABS: Potassium 3.9 mmol/L (3.5-5.1)
[2020-10-31 06:37] LABS: BUN/Creatinine Ratio 33.6; Calcium 8.8 mg/dL (8.5-10.1)
[2020-10-31] MEDS: BUDESONIDE (INHALATION) 180 MCG IH IN SCH ×2 (07:41→22:00)
[2020-10-31 09:00] VITALS: BP 116/63
[2020-10-31] MEDS ORDERED: LACTULOSE 20Gm/30ML SOLN PO ONE (10:15)
[2020-10-31] MEDS: DexAMETHasone SOD PHOS 10MG/1ML VIAL INJ IV SCH (10:19)
[2020-10-31] MEDS: AZITHROMYCIN 500MG/D5WorNS 250ml IV SCH (10:19)
[2020-10-31] MEDS: cefTRIAXone 1GM/50ML D5W 50 ML IV SCH (10:19)
[2020-10-31] MEDS: FUROSEMIDE 40 MG/4 ML VIAL IV SCH (10:19)
[2020-10-31] MEDS: POTASSIUM CHL 20 Meq TABLET PO SCH (10:20)
[2020-10-31] MEDS: ZINC SULFATE 220mg CAP or TAB PO SCH (10:20)
[2020-10-31] MEDS: CHOLECALCIFEROL (VITD3) 2,000 UNIT CAP PO SCH (10:20)
[2020-10-31] MEDS: ASCORBIC ACID 1,000 MG TAB PO SCH (10:20)
[2020-10-31 13:00] VITALS: BP 133/78
[2020-10-31] MEDS: ALBUTEROL SULF HFA 90MCG INH 200DOSE IN PRN ×2 (14:26→23:21)
[2020-10-31] MEDS ORDERED: WARFARIN SODIUM 2 MG TAB PO ONE (17:00)
[2020-10-31 17:40] VITALS: BP 124/75
[2020-10-31 20:00] VITALS: BP 114/73
[2020-10-31] MEDS: SODIUM CHL 0.9% IV SCH (20:00)
[2020-10-31] MEDS: REMDESIVIR IV SCH (20:00)
[2020-10-31 23:21] VITALS: BP 114/73
[2020-11-01 05:13] VITALS: BP 130/76
[2020-11-01 06:27] LABS: Basophils # (auto) 0 10 ^3/uL (0-0.2); Basophils % (auto) 0.1 % (0.0-2.0); Eosinophils # (auto) 0 10 ^3/uL (0-0.8); Eosinophils % (auto) 0.2 % (0.0-7.0); Hematocrit 47.1 % (41.0-53.0); Hemoglobin 15.8 g/dL (13.5-17.5); Lymphocytes # (auto) 1.1 10 ^3/uL (0.4-5.4); Lymphocytes % (auto) 12.2 % (10.0-50.0); Mean Corpuscular Hemoglobin 29.4 pg (28.0-32.0); Mean Corpuscular Hgb Conc. 33.6 g/dL (32.0-36.0); Mean Corpuscular Volume 87.5 fL (80.0-100.0); Monocytes # (auto) 0.6 10 ^3/uL (0-1.3); Monocytes % (auto) 6.2 % (0.0-12.0); Neutrophils # (auto) 7.7 10 ^3/uL (1.6-8.6); Neutrophils % (auto) 81.3 % (37.0-80.0); Nucleated Red Blood Cells % 0.2 %; Platelet Count (auto) 222 10^3/uL (140-450); Red Blood Cells 5.38 10^6/uL (4.5-5.90); Red Cell Distribution Width 14.9 % (11.8-14.3); White Blood Cell 9.4 10^3/uL (4.4-10.8)
[2020-11-01 06:28] LABS: INR 1.94 (0.9-1.15)
[2020-11-01] MEDS: BUDESONIDE (INHALATION) 180 MCG IH IN SCH ×2 (06:36→19:00)
[2020-11-01 06:41] LABS: BUN/Creatinine Ratio 36.1; Calcium 8.6 mg/dL (8.5-10.1)
[2020-11-01] MEDS: cefTRIAXone 1GM/50ML D5W 50 ML IV SCH (08:25)
[2020-11-01] MEDS: POTASSIUM CHL 20 Meq TABLET PO SCH (08:25)
[2020-11-01] MEDS: ZINC SULFATE 220mg CAP or TAB PO SCH (08:25)
[2020-11-01] MEDS: CHOLECALCIFEROL (VITD3) 2,000 UNIT CAP PO SCH (08:26)
[2020-11-01] MEDS: ASCORBIC ACID 1,000 MG TAB PO SCH (08:26)
--- NOTE | 2020-11-01 08:26 | NUR ---
patient refused lactulose, said he can go poop on his own, and he doesn't want diarrhea.
[2020-11-01 09:00] VITALS: BP 128/74
[2020-11-01] MEDS ORDERED: DOCUSATE SOD 100 MG CAP PO PRN (09:15)
[2020-11-01] MEDS: FUROSEMIDE 40 MG/4 ML VIAL IV SCH (09:47)
[2020-11-01] MEDS: AZITHROMYCIN 500MG/D5WorNS 250ml IV SCH (09:47)
[2020-11-01] MEDS: DexAMETHasone SOD PHOS 10MG/1ML VIAL INJ IV SCH (09:47)
[2020-11-01] MEDS ORDERED: LACTULOSE 20Gm/30ML SOLN PO SCH (10:00)
[2020-11-01 12:30] VITALS: BP 120/75
[2020-11-01] MEDS: ALBUTEROL SULF HFA 90MCG INH 200DOSE IN PRN (14:13)
[2020-11-01 16:38] VITALS: BP 132/80
[2020-11-01] MEDS ORDERED: WARFARIN SODIUM 2 MG TAB PO ONE (17:00)
--- NOTE | 2020-11-01 18:35 | NUR ---
PATIENT IV GOT PULLED OUT, CATHETER INTACT, PATIENT REFUSED FOR ME TO TAKE OFF TAPE, HE SAID HE WANTED TO DO IT HIMSELF, COVERED SITE WITH GAUZE.
--- NOTE | 2020-11-01 18:36 | NUR ---
NEW IV INSERTED TO RIGHT AC PATIENT TOLERATED WELL.
[2020-11-01] MEDS: REMDESIVIR IV SCH (19:49)
[2020-11-01] MEDS: SODIUM CHL 0.9% IV SCH (19:49)
[2020-11-01 22:00] VITALS: BP 132/83
--- NOTE | 2020-11-01 22:27 | NUR ---
REMDESIVIR INFUSION WAS STARTED AT 1930. AT THIS TIME PATIENT IS RESTING COMFORTABLY . VITAL SIGNS AT START OF TRANSFUSION WERE FOLLOWS. 137/84 HR 75 TEMP 97.6 AXILLARY RR 20 O2 WAS 93% ON 15 LITERS NON REBREATHER PAIN WAS 0/10 15 MINUTE VITALS WERE 126/76 HR74 RR20 TEMP97.6 O2 94% ON 15 LITERS NON REBREATHER PAIN WAS 0/10 AT COMPLETION OF TRANSFUSION B/P 132/83 HR 70 RR 22 TEMP 97.0 PAIN 0/10 O2 WAS 91% ON 15 LITERS NRB. 1 HOUR POST TRANSFUSION 99/57 RR20 HR71 TEMP 98.0 PAIN 0/10 O2 WAS 93% ON 15 LITERS NRB
[2020-11-02] MEDS: ALBUTEROL SULF HFA 90MCG INH 200DOSE IN PRN ×3 (00:47→22:14)
[2020-11-02 05:34] VITALS: BP 139/90
[2020-11-02 06:54] LABS: Basophils # (auto) 0 10 ^3/uL (0-0.2); Eosinophils # (auto) 0 10 ^3/uL (0-0.8); Eosinophils % (auto) 0.1 % (0.0-7.0); Hematocrit 47.2 % (41.0-53.0); Hemoglobin 16.2 g/dL (13.5-17.5); Lymphocytes # (auto) 0.8 10 ^3/uL (0.4-5.4); Lymphocytes % (auto) 8.4 % (10.0-50.0); Mean Corpuscular Hgb Conc. 34.3 g/dL (32.0-36.0); Mean Corpuscular Volume 87.4 fL (80.0-100.0); Monocytes # (auto) 0.6 10 ^3/uL (0-1.3); Monocytes % (auto) 6.5 % (0.0-12.0); Neutrophils # (auto) 8.3 10 ^3/uL (1.6-8.6); Platelet Count (auto) 229 10^3/uL (140-450); Red Blood Cells 5.41 10^6/uL (4.5-5.90); Red Cell Distribution Width 14.4 % (11.8-14.3); White Blood Cell 9.7 10^3/uL (4.4-10.8)
[2020-11-02 07:01] LABS: INR 2.77 (0.9-1.15)
[2020-11-02 07:08] LABS: Potassium 4.2 mmol/L (3.5-5.1)
[2020-11-02] MEDS: BUDESONIDE (INHALATION) 180 MCG IH IN SCH ×2 (07:10→22:14)
[2020-11-02 07:25] LABS: BUN/Creatinine Ratio 38.9; Calcium 8.8 mg/dL (8.5-10.1)
--- NOTE | 2020-11-02 07:30 | NUR ---
RECEIVED REPORT FROM NIGHT NURSE. PATIENT RESTING IN BED, NO DISTRESS NOTED. 15L NON-REBREATHER. WILL CONTINUE TO MONITOR.
[2020-11-02 08:45] VITALS: BP 126/83
[2020-11-02] MEDS: cefTRIAXone 1GM/50ML D5W 50 ML IV SCH (09:39)
[2020-11-02] MEDS: ASCORBIC ACID 1,000 MG TAB PO SCH (09:40)
[2020-11-02] MEDS: FUROSEMIDE 40 MG/4 ML VIAL IV SCH (09:40)
[2020-11-02] MEDS: DexAMETHasone SOD PHOS 10MG/1ML VIAL INJ IV SCH (09:40)
[2020-11-02] MEDS: POTASSIUM CHL 20 Meq TABLET PO SCH (09:41)
[2020-11-02] MEDS: ZINC SULFATE 220mg CAP or TAB PO SCH (09:41)
[2020-11-02] MEDS: CHOLECALCIFEROL (VITD3) 2,000 UNIT CAP PO SCH (09:41)
--- NOTE | 2020-11-02 12:44 | NUR ---
Nutrition Followup Notes Pt wt is 95.4 kg Pt is positive for COVID, in isolation. Pt is with a Cardiac 2gNa diet, appetite is fair aeb ave 65% x5 PO intake per RN doc. Est energy needs 0537-4945 kcal (18-20 kcal/kg BW 95.8kg) Est protein needs 78-94g (1-1.2g/kg IBW 78kg) Will monitor and reassess prn. LABS: BUN 37 H, Gluc 238 H, Alb 2.8 L GI: Pt had 1 BM on 10/31 per RN doc. BS: 16 mod risk. Refer to wound assessment report for further details PES: Overweight r/t caloric intake in excess of needs aeb pt with a BMI of 29.5kg/m2 Comments 1) Continue to monitor po intake, labs, skin 2) refer pt to OPD on DC 3) Continue current plan of care
[2020-11-02 13:00] VITALS: BP 127/88
--- NOTE | 2020-11-02 15:34 | NUR ---
PT AT BEDSIDE WORKING WITH PATIENT.
[2020-11-02 17:00] VITALS: BP 125/70
[2020-11-02] MEDS ORDERED: WARFARIN SODIUM 2 MG TAB PO ONE (17:00)
--- NOTE | 2020-11-02 19:09 | NUR ---
PATIENT CARE ENDORSED TO NIGHT NURSE.
[2020-11-02 21:18] VITALS: BP 136/85
[2020-11-03 05:00] VITALS: BP 123/76
[2020-11-03 05:55] LABS: Basophils # (auto) 0 10 ^3/uL (0-0.2); Basophils % (auto) 0.1 % (0.0-2.0); Eosinophils # (auto) 0.1 10 ^3/uL (0-0.8); Eosinophils % (auto) 0.5 % (0.0-7.0); Hematocrit 51.7 % (41.0-53.0); Hemoglobin 17.4 g/dL (13.5-17.5); Lymphocytes # (auto) 1.2 10 ^3/uL (0.4-5.4); Lymphocytes % (auto) 11.3 % (10.0-50.0); Mean Corpuscular Hemoglobin 29.8 pg (28.0-32.0); Mean Corpuscular Hgb Conc. 33.6 g/dL (32.0-36.0); Mean Corpuscular Volume 88.8 fL (80.0-100.0); Monocytes # (auto) 0.7 10 ^3/uL (0-1.3); Monocytes % (auto) 6.9 % (0.0-12.0); Neutrophils # (auto) 8.6 10 ^3/uL (1.6-8.6); Neutrophils % (auto) 81.2 % (37.0-80.0); Nucleated Red Blood Cells % 2.9 %; Platelet Count (auto) 254 10^3/uL (140-450); Red Blood Cells 5.82 10^6/uL (4.5-5.90); Red Cell Distribution Width 14.9 % (11.8-14.3); White Blood Cell 10.6 10^3/uL (4.4-10.8)
[2020-11-03 06:04] LABS: INR 3.86 (0.9-1.15)
[2020-11-03 06:09] LABS: Calcium 9.2 mg/dL (8.5-10.1); Potassium 4.2 mmol/L (3.5-5.1)
[2020-11-03] MEDS: BUDESONIDE (INHALATION) 180 MCG IH IN SCH ×2 (07:15→19:18)
[2020-11-03] MEDS: ALBUTEROL SULF HFA 90MCG INH 200DOSE IN PRN ×2 (07:15→19:18)
--- NOTE | 2020-11-03 07:30 | NUR ---
RECEIVED REPORT FROM NIGHT NURSE. PATIENT RESTING IN BED, NO DISTRESS NOTED. 15L NON REBREATHER SATING 92%. WILL CONTINUE TO MONITOR.
[2020-11-03 09:00] VITALS: BP 126/80
[2020-11-03] MEDS: DexAMETHasone SOD PHOS 10MG/1ML VIAL INJ IV SCH (09:52)
[2020-11-03] MEDS: FUROSEMIDE 40 MG/4 ML VIAL IV SCH (09:52)
[2020-11-03] MEDS: cefTRIAXone 1GM/50ML D5W 50 ML IV SCH (09:52)
[2020-11-03] MEDS: ZINC SULFATE 220mg CAP or TAB PO SCH (09:52)
[2020-11-03] MEDS: ASCORBIC ACID 1,000 MG TAB PO SCH (09:53)
[2020-11-03] MEDS: CHOLECALCIFEROL (VITD3) 2,000 UNIT CAP PO SCH (09:53)
[2020-11-03] MEDS: POTASSIUM CHL 20 Meq TABLET PO SCH (09:53)
[2020-11-03 13:00] VITALS: BP 126/78
[2020-11-03 16:52] VITALS: BP 124/69
--- NOTE | 2020-11-03 19:24 | NUR ---
Opening Shift Note Assumed care of patient, awake and alert. No S/S of distress/SOB or pain, currently on 15L Nonrebreather mask, SPO2 92-93%. Instructed on POC and to call for assistance PRN, will continue to monitor for changes Q1hr and PRN.
[2020-11-03 21:20] VITALS: BP 115/77
[2020-11-04 05:32] VITALS: BP 127/74
[2020-11-04 05:58] LABS: Basophils # (auto) 0 10 ^3/uL (0-0.2); Basophils % (auto) 0.1 % (0.0-2.0); Eosinophils # (auto) 0.1 10 ^3/uL (0-0.8); Eosinophils % (auto) 1.4 % (0.0-7.0); Hematocrit 51.8 % (41.0-53.0); Hemoglobin 17.2 g/dL (13.5-17.5); Lymphocytes # (auto) 1.3 10 ^3/uL (0.4-5.4); Lymphocytes % (auto) 13.4 % (10.0-50.0); Mean Corpuscular Hemoglobin 29.2 pg (28.0-32.0); Mean Corpuscular Hgb Conc. 33.2 g/dL (32.0-36.0); Monocytes # (auto) 0.8 10 ^3/uL (0-1.3); Neutrophils # (auto) 7.4 10 ^3/uL (1.6-8.6); Neutrophils % (auto) 77.1 % (37.0-80.0); Nucleated Red Blood Cells % 0.1 %; Platelet Count (auto) 259 10^3/uL (140-450); Red Blood Cells 5.89 10^6/uL (4.5-5.90); Red Cell Distribution Width 14.6 % (11.8-14.3); White Blood Cell 9.7 10^3/uL (4.4-10.8)
[2020-11-04 06:20] LABS: INR 4.08 (0.9-1.15)
--- NOTE | 2020-11-04 06:40 | NUR ---
CRITICAL LAB/PAGED HOSPITALIST INFORMED HOSPITALIST OF CRITICAL INR 4.08, PER HOSPITALIST HOLD WARFARIN TODAY. ORDERS READ BACK AND VERIFIED, WILL CONTINUE TO MONITOR Q1 AND PRN.
--- NOTE | 2020-11-04 07:15 | NUR ---
End of Shift Note Endorsed care to dayshift RN. At this time patient has no s/s of distress or SOB.
--- NOTE | 2020-11-04 08:00 | NUR ---
Opening Shift Note Assumed care of patient, awake and alert. No S/S of distress/SOB or pain, currently on 15L Nonrebreather mask, SPO2 96%. Patient titrated to 12L NRM and saturation maintained at 94%. Instructed on POC and to call for assistance PRN, will continue to monitor for changes Q1hr and PRN.
[2020-11-04 09:00] VITALS: BP 116/75
[2020-11-04] MEDS: BUDESONIDE (INHALATION) 180 MCG IH IN SCH ×2 (10:00→19:17)
[2020-11-04] MEDS: DexAMETHasone SOD PHOS 10MG/1ML VIAL INJ IV SCH (10:00)
[2020-11-04] MEDS: CHOLECALCIFEROL (VITD3) 2,000 UNIT CAP PO SCH (10:00)
[2020-11-04] MEDS: FUROSEMIDE 40 MG/4 ML VIAL IV SCH (10:00)
[2020-11-04] MEDS: POTASSIUM CHL 20 Meq TABLET PO SCH (10:00)
[2020-11-04] MEDS: ZINC SULFATE 220mg CAP or TAB PO SCH (10:00)
--- NOTE | 2020-11-04 10:00 | NUR ---
Patient titrated from 12L NRM to 10L Oxymizer. Oxygen saturation at 93%. Will monitor closely.
--- NOTE | 2020-11-04 11:00 | NUR ---
Dr. Handley at [facility]
[2020-11-04 13:00] VITALS: BP 118/76
--- NOTE | 2020-11-04 13:04 | NUR ---
Assessment Patient is a 64-year-old male who is alert and oriented. Prior to admission patient lived home alone and functioned independently. Prior to admission patient could care for his own ADLs. Patient does not have any medical equipment now. Advised patient there is a social service consult for SNF placement. Patient is in agreement for SNF placement and does not have a preference. Informed patient clinical information will be faxed to [facility] , [facility] who [facility] accepting COVID patient. Patient is in agreement to be placed at any of these facilities upon discharge day. Informed patient he has the right to participate in all discharge planning. Patient does not have an advance directive. Patient has been provided with an advance directive. Patient verbalize understanding d/c plan. Placed call to [facility], [facility] and [facility]. The representatives with these facilities informed me they can only take oxygen up to 5 l/min. Informed MIGUEL Tillman and , Dr. Handley. Patient is currently on 12 l/min. Patient is not currently stable to discharge to a SNF and will follow up when patient oxygen level is under 5 l/min nasal canula. Addendum: 11/04/20 at 1307 by [place] CUE[place] Amended: Links added.
[2020-11-04 17:00] VITALS: BP 140/77
[2020-11-04] MEDS: ALBUTEROL SULF HFA 90MCG INH 200DOSE IN PRN (19:17)
[2020-11-04 21:58] VITALS: BP 134/64
--- NOTE | 2020-11-05 | NUR ---
OXYGEN TITRATION Patient's oxygen saturation is 97% on 10 L Oxymizer. O2 has been titrated down to 8L. Current O2 saturation is 94%. Will continue to monitor the patient.
--- NOTE | 2020-11-05 04:45 | NUR ---
OXYGEN TITRATION Patient's oxygen saturation is 95-96%% on 8 L Oxymizer. O2 has been titrated down to 6L. O2 saturation is 93%-94%.Will continue to monitor the patient.
[2020-11-05 06:03] VITALS: BP 145/80
[2020-11-05] MEDS: BUDESONIDE (INHALATION) 180 MCG IH IN SCH (06:26)
[2020-11-05] MEDS: ALBUTEROL SULF HFA 90MCG INH 200DOSE IN PRN (06:26)
[2020-11-05 07:17] LABS: Basophils # (auto) 0 10 ^3/uL (0-0.2); Eosinophils # (auto) 0 10 ^3/uL (0-0.8); Eosinophils % (auto) 0.2 % (0.0-7.0); Hematocrit 49.6 % (41.0-53.0); Lymphocytes # (auto) 1.5 10 ^3/uL (0.4-5.4); Lymphocytes % (auto) 12.5 % (10.0-50.0); Mean Corpuscular Hemoglobin 29.9 pg (28.0-32.0); Mean Corpuscular Hgb Conc. 34.2 g/dL (32.0-36.0); Mean Corpuscular Volume 87.3 fL (80.0-100.0); Monocytes # (auto) 0.9 10 ^3/uL (0-1.3); Monocytes % (auto) 7.1 % (0.0-12.0); Neutrophils # (auto) 9.7 10 ^3/uL (1.6-8.6); Neutrophils % (auto) 80.2 % (37.0-80.0); Nucleated Red Blood Cells % 0.1 %; Platelet Count (auto) 271 10^3/uL (140-450); Red Blood Cells 5.68 10^6/uL (4.5-5.90); Red Cell Distribution Width 14.4 % (11.8-14.3); White Blood Cell 12.2 10^3/uL (4.4-10.8)
[2020-11-05 07:31] LABS: INR 3.12 (0.9-1.15)
[2020-11-05 07:59] VITALS: BP 124/81
--- NOTE | 2020-11-05 09:46 | NUR ---
OXYGEN TITRATION Patient's oxygen saturation is 94% on 6 L Oxymizer. O2 has been titrated down to 8L via NC. O2 saturation is 91%.
[2020-11-05] MEDS: DexAMETHasone SOD PHOS 10MG/1ML VIAL INJ IV SCH (09:48)
[2020-11-05] MEDS: CHOLECALCIFEROL (VITD3) 2,000 UNIT CAP PO SCH (09:49)
[2020-11-05] MEDS: ZINC SULFATE 220mg CAP or TAB PO SCH (09:49)
[2020-11-05] MEDS: POTASSIUM CHL 20 Meq TABLET PO SCH (09:49)
[2020-11-05] MEDS: FUROSEMIDE 40 MG/4 ML VIAL IV SCH (09:49)
--- NOTE | 2020-11-05 12:08 | NUR ---
Nutrition Followup Notes Wt: 92.0 kg Pt is positive for COVID, in isolation. Pt is with a Cardiac 2gNa diet chopped, with adequate PO of 75% x 4 per RN doc. Est energy needs 4217-9417 kcal (18-20 kcal/kg BW 95.8kg), Est protein needs 78-94g (1-1.2g/kg IBW 78kg). Will monitor and reassess prn. LABS: No new labs today 11/03: BUN 38 H GLU 193 H GI: Pt had 1 BM on 10/31 per RN doc. BS: 15 mod risk. Refer to wound assessment report for further details PES: Overweight r/t caloric intake in excess of needs aeb pt with a BMI of 29.5kg/m2 Comments: Will Continue to monitor po intake, labs, skin. F/u mod 3-5 days Rec: 1) refer pt to OPD on DC 3) Continue current plan of care
--- NOTE | 2020-11-05 12:33 | NUR ---
OXYGEN TITRATION Patient's oxygen saturation is 94% on 8L NC. O2 has been titrated down to 6L via NC. O2 saturation is 92%.
[2020-11-05 12:44] VITALS: BP 122/68
[2020-11-05 14:49] VITALS: BP 122/68
--- NOTE | 2020-11-05 15:30 | NUR ---
REPORT CALLED TO POOL RIVERA AT [facility] [phone]. ALL QUESTIONS ANSWERED.
[2020-11-05 16:27] VITALS: BP 120/65
--- NOTE | 2020-11-05 16:57 | NUR ---
D/C Planning Faxed clinical information to [facility]. Per Susanne with [facility] patient has been accepted to room 203 bed 1 accepting MD, Dr. Escobedo. Transportation has been arranged with [facility] transportation between 17:00-18:00 via gurney and oxygen. Informed MIGUEL Tillman.
--- NOTE | 2020-11-05 18:26 | NUR ---
Discharge instructions given as ordered. Encourage to follow up with PMD as instructed. All questions and concerns addressed. Patient verbalized understanding. Medication reconciliation form completed and copy given to patient. IV removed with catheter intact, pressure dressing applied,pt to dc with mendoza catheter. Telemetry unit returned to ICU. Patient taken by [facility] transport via gurney with all personal belongings, accompanied by transport personal. No distress noted at time of departure.
== END 2020-11-05 18:30 | DRG 871 ==
LOC: ER 07:09 → EDBD 07:09 → TELE 07:10 → TELE-CENTR 10-28 11:24
PROVIDERS: ADMIT Nurse Practitioner Acute Care; ATTEND Internal Medicine
PROC: XW033E5 Introduction of Remdesivir Anti-infective into Peripheral Vein, Percutaneous Approach, New Technology Group 5 (ICD-10-PCS; principal; 2020-10-27)
PROC: XW13325 Transfusion of Convalescent Plasma (Nonautologous) into Peripheral Vein, Percutaneous Approach, New Technology Group 5 (ICD-10-PCS; 2020-10-30)
DX: A41.89 Other specified sepsis (principal); U07.1 COVID-19; J96.01 Acute respiratory failure with hypoxia; J12.89 Other viral pneumonia; N17.0 Acute kidney failure with tubular necrosis; G93.41 Metabolic encephalopathy; I16.1 Hypertensive emergency; D68.32 Hemorrhagic disorder due to extrinsic circulating anticoagulants; E44.0 Moderate protein-calorie malnutrition; I12.9 Hypertensive chronic kidney disease with stage 1 through stage 4 chronic kidney disease, or unspecified chronic kidney disease; R73.9 Hyperglycemia, unspecified; R77.8 Other specified abnormalities of plasma proteins; N18.30 Chronic kidney disease, stage 3 unspecified; T45.515A Adverse effect of anticoagulants, initial encounter; E66.9 Obesity, unspecified; Z79.01 Long term (current) use of anticoagulants; Z68.28 Body mass index [BMI] 28.0-28.9, adult; Z85.72 Personal history of non-Hodgkin lymphomas; Z86.711 Personal history of pulmonary embolism; Z86.718 Personal history of other venous thrombosis and embolism; Z83.3 Family history of diabetes mellitus
CPT/HCPCS: 36415; 36600; 71045; 80048; 80053; 81001; 82550; 82728; 82805; 83036; 83735; 83874; 83880; 84484; 85025; 85379; 85610; 85730; 86141; 86850; 86900; 86901; 87040; 87426; 93005; 93970; 94640; 96361; 96365; 97116; 97163; 97530; G0378; J0696; J1100

== ENCOUNTER 2021-01-21 13:17 | Inpatient (IN) | payer MEDICARE, OTHER ==
[~2021-01-21] VITALS: Ht 180.3 cm; Wt 102.9 kg
[~2021-01-21 13:17] MED LIST changes: +WARF4TAB33 PO
[2021-01-21 13:51] LABS: Basophils # (auto) 0.1 10 ^3/uL (0-0.2); Basophils % (auto) 0.5 % (0.0-2.0); Eosinophils # (auto) 0 10 ^3/uL (0-0.8); Hematocrit 47.2 % (41.0-53.0); Lymphocytes % (auto) 13.3 % (10.0-50.0); Mean Corpuscular Hemoglobin 30.9 pg (28.0-32.0); Mean Corpuscular Hgb Conc. 33.9 g/dL (32.0-36.0); Mean Corpuscular Volume 91.1 fL (80.0-100.0); Monocytes % (auto) 6.6 % (0.0-12.0); Neutrophils # (auto) 11.7 10 ^3/uL (1.6-8.6); Neutrophils % (auto) 79.6 % (37.0-80.0); Nucleated Red Blood Cells % 0.1 %; Red Blood Cells 5.18 10^6/uL (4.5-5.90); Red Cell Distribution Width 14.8 % (11.8-14.3); White Blood Cell 14.7 10^3/uL (4.4-10.8)
[2021-01-21 14:07] LABS: Albumin 3.9 g/dL (3.4-5.0); Anion Gap 6 (5-15); Blood Urea Nitrogen 26 mg/dL (7-18); Calcium 9.3 mg/dL (8.5-10.1); Carbon Dioxide 27 mmol/L (21-32); Chloride 104 mmol/L (98-107); Glucose 114 mg/dL (74-106); Lipase 133 U/L (73-393); Potassium 4.1 mmol/L (3.5-5.1); Sodium 137 mmol/L (136-145)
[2021-01-21 14:13] LABS: Alanine Aminotransferase 35 U/L (16-61); Alkaline Phosphatase 74 U/L (45-117); Aspartate Aminotransferase 19 U/L (15-37); BUN/Creatinine Ratio 23.6; Bilirubin, Total 1.9 mg/dL (0.2-1.0); GFR African American 86 mL/min; GFR Non-African American 71 mL/min; Total Protein 7.8 g/dL (6.4-8.2)
[2021-01-21 14:17] LABS: Urine Bacteria NONE SEEN /hpf (None Seen); Urine Blood Negative /uL (Negative); Urine Mucus FEW (None Seen); Urine Specific Gravity 1.028 (1.001-1.035); Urine WBC 2 /hpf (0 - 3)
[2021-01-21] MEDS ORDERED: LORazepam 0.5 MG TAB PO PRN (15:30)
[2021-01-21] MEDS ORDERED: ONDANSETRON HCL 4 MG/2 ML VIAL IV PRN (15:30)
[2021-01-21] MEDS ORDERED: KETOROLAC TROMETH 30 MG/ML 1ML VIAL IM PRN (15:30)
[2021-01-21] MEDS ORDERED: LABETALOL HCL 5 MG/ML 4ML SYRINGE IV PRN (15:30)
[2021-01-21] MEDS ORDERED: NITROGLYCERIN 0.4 MG SL TAB SL PRN (15:30)
[2021-01-21] MEDS ORDERED: ACETAMINOPHEN 500 MG TAB PO PRN (15:30)
[2021-01-21] MEDS ORDERED: MORPHINE SULFATE INJECTION 2 MG/ML SYRG IV PRN ×2 (15:30)
[2021-01-21] MEDS ORDERED: DOCUSATE CALCIUM 240 MG CAP PO PRN (15:30)
[2021-01-21] MEDS: cefTRIAXone 1GM/50ML D5W 50 ML IV SCH (16:29)
[2021-01-21] MEDS ORDERED: WARF4TAB33 PO (17:25)
[2021-01-21] MEDS ORDERED: MAGN400T40 PO (17:27)
[2021-01-21] MEDS ORDERED: ALBUAER3 IN (17:27)
[2021-01-21] MEDS ORDERED: ATOR40TA52 PO (17:27)
[2021-01-21] MEDS ORDERED: ZINC220C8 PO (17:27)
[2021-01-21] MEDS ORDERED: CHOL20007 PO (17:27)
[2021-01-21 21:49] LABS: INR 4.02 (0.9-1.15)
[2021-01-22 07:50] LABS: Basophils # (auto) 0.1 10 ^3/uL (0-0.2); Basophils % (auto) 0.5 % (0.0-2.0); Eosinophils # (auto) 0 10 ^3/uL (0-0.8); Eosinophils % (auto) 0.2 % (0.0-7.0); Hematocrit 43.9 % (41.0-53.0); Lymphocytes # (auto) 1.7 10 ^3/uL (0.4-5.4); Lymphocytes % (auto) 17.5 % (10.0-50.0); Mean Corpuscular Hgb Conc. 34.2 g/dL (32.0-36.0); Mean Corpuscular Volume 90.8 fL (80.0-100.0); Monocytes # (auto) 0.5 10 ^3/uL (0-1.3); Monocytes % (auto) 5.3 % (0.0-12.0); Neutrophils # (auto) 7.6 10 ^3/uL (1.6-8.6); Neutrophils % (auto) 76.5 % (37.0-80.0); Red Blood Cells 4.83 10^6/uL (4.5-5.90); Red Cell Distribution Width 14.8 % (11.8-14.3); White Blood Cell 9.9 10^3/uL (4.4-10.8)
[2021-01-22 08:00] VITALS: BP 147/80
[2021-01-22 08:03] LABS: INR 3.61 (0.9-1.15); Partial Thromboplastin Time 42.8 sec (23.0-31.2)
[2021-01-22 08:04] LABS: Albumin 3.3 g/dL (3.4-5.0); Calcium 8.6 mg/dL (8.5-10.1); Potassium 3.9 mmol/L (3.5-5.1)
[2021-01-22 08:06] LABS: BUN/Creatinine Ratio 23.5
[2021-01-22 08:09] LABS: Bilirubin, Total 2.3 mg/dL (0.2-1.0); Total Protein 6.5 g/dL (6.4-8.2)
[2021-01-22] MEDS ORDERED: WARFARIN 4 MG PO SCH (10:00)
[2021-01-22] MEDS ORDERED: PANTOPRAZOLE 40 MG TAB PO SCH (10:00)
[2021-01-22] MEDS: cefTRIAXone 1GM/50ML D5W 50 ML IV SCH (10:40)
[2021-01-22 12:00] VITALS: BP 127/74
== END 2021-01-22 15:50 | disposition home or self-care (01) | DRG 690 ==
LOC: ER 13:17 → TELE 13:18 → TELE-WESTW 01-22 08:02
PROVIDERS: ADMIT Family Medicine; ATTEND Family Medicine
DX: N39.0 Urinary tract infection, site not specified (principal); K80.10 Calculus of gallbladder with chronic cholecystitis without obstruction; I10 Essential (primary) hypertension; Z79.01 Long term (current) use of anticoagulants; Z79.899 Other long term (current) drug therapy; Z83.3 Family history of diabetes mellitus; Z85.840 Personal history of malignant neoplasm of eye; Z86.16 Personal history of COVID-19; Z86.718 Personal history of other venous thrombosis and embolism; Z90.49 Acquired absence of other specified parts of digestive tract; M54.5 Low back pain; E80.4 Gilbert syndrome; Z20.822 Contact with and (suspected) exposure to COVID-19; E80.6 Other disorders of bilirubin metabolism
CPT/HCPCS: 36415; 71045; 72100; 74176; 80053; 81001; 83036; 83690; 83880; 84154; 84443; 84484; 85025; 85610; 85730; 87086; 87426; 93005; 96365; G0378; J0696

== ENCOUNTER 2024-11-21 21:53 | Emergency (ER) | payer OTHER, MEDICAID ==
[~2024-11-21] VITALS: Ht 177.8 cm; Wt 98.0 kg
[~2024-11-21 21:53] MED LIST changes: +ALBUAER3 IN; -AML5T PO; +ATOR40TA52 PO; +CHOL20007 PO; +MAGN400T40 PO; +WARF-112 PO; -WARF4TAB33 PO; +ZINC220C8 PO
--- NOTE | 2024-11-21 22:12 | ED.PDOC ---
GI ASSESSMENT HPI Comments 69-year-old male who came to ER via EMS for a constipation. Patient states he is recovering from a recent influenza/pneumonia 2 weeks ago. States he is still very weak, fatigued and short of breath. Patient coming in today because he has been constipated for the past 4 days with abdominal pain. Denies any nausea, vomiting or diarrhea. He does have history of small-bowel obstruction. Chief Complaint: Constipation Time Seen by MD: 22:17 Primary Care Provider: UNK Reviewed Notes: Nurses Notes Allergies: Coded Allergies: NO KNOWN ALLERGIES (Unverified , 07/10/17) Home Meds Active Scripts Magnesium Citrate (Onelax Magnesium Citrate) 1.745 Gm/30 Ml [place], 1.745 GM PO QID PRN for 10 Days, #120 ML Prov:TAN ORANTES MD 11/22/24 Bisacodyl (Dulcolax) 10 Mg Sup, 10 MG RE QID PRN for 10 Days, #30 SUPP Prov:TAN ORANTES MD 11/22/24 Polyethylene Glycol 3350 (Miralax) 17 Gm Pow, 17 GM PO BID for 60 Days, #120 POW Prov:TAN ORANTES MD 11/22/24 Reported Medications Magnesium Oxide (MAGNESIUM OXIDE) Unknown Strength Tab, PO DAILY 01/21/21 Cholecalciferol (VITAMIN D3) Unknown Strength Tab, PO DAILY 01/21/21 Zinc Sulfate (Zinc Sulfate) Unknown Strength Cap, PO DAILY 01/21/21 Albuterol Sulfate (VENTOLIN MDI) 90 Mcg Ih, 2 PUFF IN Q6HP 01/21/21 Atorvastatin Calcium (ATORVASTATIN CALCIUM) 40 Mg Tab, 1 TAB PO HS 01/21/21 Warfarin Sodium (Warfarin Sodium) 4 Mg Tab, 4 MG PO DAILY EXCEPT Sunday10/28/20 Information Source: Patient, Emergency Med Personnel Mode of Arrival: EMS Timing: Hours Duration: Since onset Prehospital treatment: None Quality: Aching Vomitus: None Stool: Impaction Severity: Moderate Recent: None Recent Hx of: Abdominal Surgery Pain Location: Diffuse Associated sign and symptoms: Constipation, Abdominal Pain Past Medical History PAST MEDICAL HISTORY: Cancer, COPD, DM, HTN Past Medical History (Other): Small-bowel obstruction Surgical History: Appendectomy, Hernia Repair, Tonsillectomy Family History Family History: Family hx of DM Social History Smoker: Non-Smoker Alcohol: Denies ETOH Use Drugs: Denies Drug Use Lives In: Home Constitutional: reports: fatigue, malaise, weakness; denies: chills, diaphoresis, fever, sweats, others EENTM: denies: blurred vision, double vision, ear bleeding, ear discharge, ear drainage, ear pain, ear ringing, eye pain, eye redness, hearing loss, mouth pain, mouth swelling, nasal discharge, nose bleeding, nose congestion, nose pain, photophobia, tearing, throat pain, throat swelling, voice changes, others Respiratory: reports: SOB at rest; denies: cough, hemoptysis, orthopnea, shortness of breath, SOB with excertion, stridor, wheezing, others Cardiovascular: denies: chest pain, dizzy spells, diaphoresis, Dyspnea on exertion, edema, irregular heart beat, left arm pain, lightheadedness, palpitations, PND, syncope, others Gastrointestinal: reports: abdominal pain, constipated; denies: abdomen distended, blood streaked bowels, diarrhea, dysphagia, difficulty swallowing, hematemesis, melena, nausea, poor appetite, poor fluid intake, rectal bleeding, rectal pain, vomiting, others Genitourinary: denies: burning, dysuria, flank pain, frequency, hematuria, incontinence, penile discharge, penile sore, pain, testicle pain, testicle swelling, urgency, others Neurological: denies: dizziness, fainting, headache, left sided numbness, left sided weakness, numbness, paresthesia, pre-existing deficit, right sided numbness, right sided weakness, seizure, speech problems, tingling, tremors, weakness, others Musculoskeletal: denies: back pain, gout, joint pain, joint swelling, muscle pain, muscle stiffness, neck pain, others Integumetry: denies: bruises, change in color, change in hair/nails, dryness, laceration, lesions, lumps, rash, wounds, others Allergic/Immunocompromised: denies: Difficulty Healing, Frequent Infections, Hives, Itching, others Hematologic/Lymphatic: denies: anemia, blood clots, easy bleeding, easy bruising, swollen glands, others Endocrine: denies: excessive hunger, excessive sweating, excessive thirst, excessive urination, flushing, intolerance to cold, intolerance to heat, unexplained weight gain, unexplained weight loss, others Psychiatric: denies: anxiety, bipolar disorder, depression, hopeless, panic disorder, schizophrenia, sleepless, suicidal, others Physical Exam General Appearance: No Apparent Distress, Normal HEENT: Normal ENT Inspection, Pharynx Normal, TMs Normal Neck: Full Range of Motion, Non-Tender, Normal, Normal Inspection Respiratory: Chest Non-Tender, Lungs Clear, No Accessory Muscle Use, No Respiratory Distress, Normal Breath Sounds Cardiovascular: No Edema, No JVD, No Murmur, No Gallop, Normal Peripheral Pulses, Regular Rate/Rhythm Breast Exam: Deferred Gastrointestinal: No Organomegaly, Non Tender, No Pulsatile Mass, Normal Bowel Sounds, Soft Genitalia: Deferred Pelvic: Deferred Rectal: Deferred Extremities: No calf tenderness, Normal capillary refill, Normal inspection, Normal range of motion, Non-tender, No pedal edema Musculoskeletal : Apperance: Normal Neurologic: Alert, senior mechanical project manager II-XII nml as Tested, No Motor Deficits, Normal Affect, Normal Mood, No Sensory Deficits Cerebellar Function: Normal Reflexes: Normal Skin: Dry, Normal Color, Warm Lymphatic: No Adenopathy Was a procedure done? Was a procedure done?: No GI differential Dx Differential Diagnosis: Bowel Obstruction, Constipation, Diverticular disease, Gastritis/PUD, Gastroenteritis, Pancreatitis, UTI, Urolithiasis X-Ray, Labs, Meds, VS Vital Signs Date Time Temp Pulse Resp B/P (MAP) Pulse Ox O2 Delivery O2 Flow Rate FiO2 11/22/24 02:45 73 20 98 Room Air 11/22/24 02:45 98.1 73 20 126/54 (78) 98 98.1 11/21/24 23:11 98.0 78 18 136/82 (100) 95 Lab Test 11/22/24 01:47 11/21/24 23:26 11/21/24 02:40 Range/Units POC Glucose 130 H 70-106 mg/dl White Blood Count 9.9 4.4-10.8 10^3/uL Red Blood Count 5.16 4.5-5.90 10^6/uL Hemoglobin 14.5 13.5-17.5 g/dL Hematocrit 43.8 41.0-53.0 % Mean Corpuscular Volume 84.9 80.0-100.0 fL Mean Corpuscular Hemoglobin 28.2 28.0-32.0 pg Mean Corpuscular Hemoglobin Concent 33.2 32.0-36.0 g/dL Red Cell Distribution Width 15.6 H 11.8-14.3 % Platelet Count 238 140-450 10^3/uL Mean Platelet Volume 8.2 6.9-10.8 fL Neutrophils (%) (Auto) 71.7 37.0-80.0 % Lymphocytes (%) (Auto) 16.0 10.0-50.0 % Monocytes (%) (Auto) 8.8 0.0-12.0 % Eosinophils (%) (Auto) 2.5 0.0-7.0 % Basophils (%) (Auto) 1.0 0.0-2.0 % Neutrophils # (Auto) 7.1 1.6-8.6 10 ^3/uL Lymphocytes # (Auto) 1.6 0.4-5.4 10 ^3/uL Monocytes # (Auto) 0.9 0-1.3 10 ^3/uL Eosinophils # (Auto) 0.3 0-0.8 10 ^3/uL Basophils # (Auto) 0.1 0-0.2 10 ^3/uL Nucleated Red Blood Cells 0.1 % Sodium Level 139 136-145 mmol/L Potassium Level 3.8 3.5-5.1 mmol/L Chloride Level 104 98-107 mmol/L Carbon Dioxide Level 26 20-31 mmol/L Anion Gap 9 5-15 Blood Urea Nitrogen 18 9-23 mg/dL Creatinine 1.37 H 0.700-1.30 mg/dL Glomerular Filtration Rate Calc 55 >90 mL/min BUN/Creatinine Ratio 13.1 10.0-20.0 Serum Glucose 116 H 74-106 mg/dL Calcium Level 10.9 H 8.7-10.4 mg/dL Magnesium Level 2.4 1.6-2.6 mg/dL Total Bilirubin 1.8 H 0.2-1.0 mg/dL Aspartate Amino Transferase (AST) 22 13-40 U/L Alanine Aminotransferase (ALT) 23 7-40 U/L Alkaline Phosphatase 119 H 46-116 U/L Total Protein 8.3 H 5.7-8.2 g/dL Albumin 5.3 H 3.2-4.8 g/dL Lipase 39 12-53 U/L Urine Color Pending Urine Clarity Pending Urine pH Pending Urine Specific [place] Pending Urine Protein Pending Urine Ketones Pending Urine Blood Pending Urine Nitrite Pending Urine Bilirubin Pending Urine Urobilinogen Pending Urine Leukocyte Esterase Pending Urine RBC Pending Urine WBC Pending Urine Squamous Epithelial Cells Pending Urine Bacteria Pending Urine Glucose Pending Current Medications Medications (Trade) Dose Ordered Sig/Lobito Route Start Time Stop Time Status Last Admin Sodium Chloride 1,000 ml @ 1,000 mls/hr Q1H ONCE IVB 11/21/24 22:30 11/21/24 23:29 DC 11/22/24 02:34 Magnesium Sulfate/ Dextrose 100 ml @ 100 mls/hr Q1H IV 11/21/24 22:30 11/22/24 00:29 DC 11/22/24 03:49 Time of 1ST Reevaluation: 22:09 Reevaluation 1ST: Unchanged Time of 2ND Reevaluation: 04:13 Reevaluation 2ND: Improved Patient Education/Counseling: Diagnosis, Treatment Family Education/Counseling: No Family Present Departure 1 Departure Time of Disposition: 04:13 Impression: Primary Impression: Constipation Additional Impressions: Cholelithiasis Hernia Disposition: 01 HOME / SELF CARE / HOMELESS Condition: Stable e-Prescriptions Magnesium Citrate (Onelax Magnesium Citrate) 1.745 Gm/30 Ml [place] 1.745 GM PO QID PRN for 10 Days, #120 ML Prov: TAN ORANTES MD 11/22/24 Bisacodyl (Dulcolax) 10 Mg Sup 10 MG RE QID PRN for 10 Days, #30 SUPP Prov: TAN ORANTES MD 11/22/24 Polyethylene Glycol 3350 (Miralax) 17 Gm Pow 17 GM PO BID for 60 Days, #120 POW Prov: TAN ORANTES MD 11/22/24 Discharged With: Self Critical Care Note Critical Care Time?: No Stability Stability form required: No Heart Score Heart Score: Heart Score Response (Comments) Value History N/A 0 EKG N/A 0 Age N/A 0 Risk Factors N/A 0 Troponin N/A 0 Total 0 I personally scribed for TAN ORANTES MD ([email or web address]) on 11/21/24 at 22:12. Electronically submitted by Sammy Amador ([facility]). I personally scribed for TAN ORANTES MD ([email or web address]) on 11/21/24 at 22:18. Electronically submitted by Sammy Amador ([email or web address]). TAN ORANTES MD Nov 21, 2024 22:12
[2024-11-21 23:39] LABS: Basophils # (auto) 0.1 10 ^3/uL (0-0.2); Eosinophils # (auto) 0.3 10 ^3/uL (0-0.8); Eosinophils % (auto) 2.5 % (0.0-7.0); Hematocrit 43.8 % (41.0-53.0); Hemoglobin 14.5 g/dL (13.5-17.5); Lymphocytes # (auto) 1.6 10 ^3/uL (0.4-5.4); Mean Corpuscular Hemoglobin 28.2 pg (28.0-32.0); Mean Corpuscular Hgb Conc. 33.2 g/dL (32.0-36.0); Mean Corpuscular Volume 84.9 fL (80.0-100.0); Monocytes # (auto) 0.9 10 ^3/uL (0-1.3); Monocytes % (auto) 8.8 % (0.0-12.0); Neutrophils # (auto) 7.1 10 ^3/uL (1.6-8.6); Neutrophils % (auto) 71.7 % (37.0-80.0); Nucleated Red Blood Cells % 0.1 %; Platelet Count (auto) 238 10^3/uL (140-450); Red Blood Cells 5.16 10^6/uL (4.5-5.90); Red Cell Distribution Width 15.6 % (11.8-14.3); White Blood Cell 9.9 10^3/uL (4.4-10.8)
[2024-11-21 23:59] LABS: Alanine Aminotransferase 23 U/L (7-40); Anion Gap 9 (5-15); Aspartate Aminotransferase 22 U/L (13-40); BUN/Creatinine Ratio 13.1 (10.0-20.0); Blood Urea Nitrogen 18 mg/dL (9-23); Carbon Dioxide 26 mmol/L (20-31); Chloride 104 mmol/L (98-107); Lipase 39 U/L (12-53); Magnesium 2.4 mg/dL (1.6-2.6); Potassium 3.8 mmol/L (3.5-5.1); Sodium 139 mmol/L (136-145)
[2024-11-22] LABS: Albumin 5.3 g/dL (3.2-4.8); Alkaline Phosphatase 119 U/L (46-116); Bilirubin, Total 1.8 mg/dL (0.2-1.0); Calcium 10.9 mg/dL (8.7-10.4); Glucose 116 mg/dL (74-106); Total Protein 8.3 g/dL (5.7-8.2)
[2024-11-22] MEDS: IOHEXOL 300 MG/ML 100ML BOTTLE IJ ONE (02:01)
[2024-11-22] MEDS: SODIUM CHLORIDE 0.9% 1,000 ML IVB ONE (02:34)
[2024-11-22] MEDS: MAGNESIUM SULFATE 1GM/100ML 100 ML IV SCH ×2 (02:34→03:45)
--- NOTE | 2024-11-22 03:55 | DVH ---
Examination: ABPLIV CLINICAL INDICATION: Abd pain, constipation. COMPARISON: None. CONTRAST USED: Intravenous. TECHNIQUE: A plain and post-contrast CT study of the abdomen and pelvis is performed after administra tion of intravenous contrast medium. The examination was performed with [address] scan don e according to ALARA (As Low as Reasonably Achievable). Multiplanar reconstructions were obtained. FINDINGS: CT ABDOMEN: Lung Base: Mild subpleural fibrosis is seen in both lower lobes. No focal infiltrates or pleural effu jonas. Cardiomegaly is noted. Liver: Fatty infiltration of the liver is noted. The portal venous radicles are normal. No intrahepat ic biliary radicle dilatation. Spleen: The spleen is normal in size and does not show any focal abnormality. Gallbladder: Cholelithiasis is noted without evidence of cholecystitis. The common bile duct is not d ilated. Pancreas: The pancreas is normal in size and shape. No focal lesion is seen within. The peripancreati c fat-planes are normal. Retroperitoneum: Both adrenal glands are normal in size and morphology. There is no significant retro peritoneal lymphadenopathy. Kidneys: A 10 mm cortical cyst is seen in the right kidney (Bosniak type I). No hydronephrosis or alaina al calculi noted. Stomach: A hiatus hernia is noted. The stomach is otherwise unremarkable. No ascites is noted. Skeletal System: Marginal osteophytes are noted. Loss of L5/S1 disc space with endplate changes is seen. Vessels: The aorta, IVC, and mesenteric vessels appear unremarkable. CT PELVIS: Appendix: The appendix is unremarkable in appearance. Colon: Fecal-filled colonic loops are noted, suggestive of constipation in the appropriate clinical s etting. Bladder: The urinary bladder is unremarkable. Pelvic Organs: Postsurgical changes in the prostate are noted. Lymph Nodes and Fluid Collection: No pelvic lymphadenopathy or abnormal fluid collection is seen. IMPRESSION: 1. Cardiomegaly is noted. 2. Fatty infiltration of the liver is noted. 3. Cholelithiasis without cholecystitis is observed. 4. A 10 mm cortical cyst in the right kidney (Bosniak type I). No routine follow-up is needed. 5. Hiatus hernia is noted. Umbilical hernia containing fat and small bubbles. 6. Fecal-filled colonic loops suggestive of constipation in the appropriate clinical setting. Electronically Signed 11/22/2024 03:54 Pacheco Beal
[2024-11-22 04:07] LABS: Urine Bacteria None Seen /hpf (None Seen); Urine WBC None Seen /hpf (0 - 3)
[2024-11-22] MEDS ORDERED: POLY335015 PO (04:12)
[2024-11-22] MEDS ORDERED: [UNRECOGNIZED DRUG - CODE] PO (04:12)
[2024-11-22] MEDS ORDERED: BISA10SU45 RE (04:12)
[2024-11-22 04:45] VITALS: BP 123/58; PULSE 77; RESP 18; TEMP 98.2; O2SAT 98
[2024-11-22 05:03] LABS: Urine Blood Negative /uL (Negative); Urine Budding Yeast OCCASIONAL /hpf (None Seen); Urine Clarity Clear (Clear); Urine Color Light-Yellow (Yellow); Urine Protein, UAD Negative (Negative); Urine Squamous Epithelial Cell None Seen /hpf (<5); Urine Urobilinogen Normal (Negative); Urine pH 5.5 (5.0-9.0)
== END 2024-11-22 04:44 | disposition home or self-care (01) ==
LOC: EDBD 21:53 → ER 21:53
DX: K59.00 Constipation, unspecified (principal); K80.20 Calculus of gallbladder without cholecystitis without obstruction; K46.9 Unspecified abdominal hernia without obstruction or gangrene; J44.9 Chronic obstructive pulmonary disease, unspecified; E11.9 Type 2 diabetes mellitus without complications; I10 Essential (primary) hypertension; Z79.01 Long term (current) use of anticoagulants; Z90.49 Acquired absence of other specified parts of digestive tract; Z90.89 Acquired absence of other organs; Z98.890 Other specified postprocedural states
CPT/HCPCS: 36415; 74177; 80053; 81001; 82962; 83690; 83735; 85025; 96365; 96366; 99285; J3475; Q9967

== ENCOUNTER 2025-09-17 16:05 | Inpatient (IN) | payer MEDICARE, MEDICAID ==
[~2025-09-17] VITALS: Ht 180.3 cm; Wt 99.9 kg
[~2025-09-17 16:05] MED LIST changes: +BENZ100C97 PO; +BISA10SU45 RE; +BUDE1AER4 INH; +CARV3.1240 PO; +CETI-175 PO; +DUPI300I SC; +EMPA1TAB PO; +FURO20TA3 PO; +KETO2SHA5 TOP; +MECL-126 PO; +POLY335015 PO; +SACU1TAB PO; +[UNRECOGNIZED DRUG - CODE] PO
--- NOTE | 2025-09-17 16:22 | ED.PDOC ---
GI ASSESSMENT HPI Comments HPI: Past Medical history: HTN, CHF, Chronic Hernias Past Surgical history: Pacemaker, Hernia Sx, Bilateral Shoulder Replacement Social History: Denies smoking, ETOH, and drug use. Allergies: NKDA HPI: Poor Historian. 69-year-old male brought in by ambulance from home for evaluation of two week history of abdominal pain. He states having some hernia that needs repair. Pain got worse today. Denies any actual lifting or any particular episode that led to the exacerbation of his pain. Patient has a normal positive bowel movement earlier today. Denies any nausea or vomiting. Pain is constant nonradiating. No alleviating or precipitating factors. Past Medical History: Past Surgical History: REVIEW OF SYSTEMS: CONSTITUTIONAL: Denies acute: fever, diaphoresis, chills, generalized weakness. HEAD: Denies acute: headache, photophobia Eyes: Denies acute: Double vision, vision loss, eye pain, eye discharge. EARS: Denies acute: tinnitus, hearing loss, ear discharge, ear pain, THROAT: Denies acute: sore throat, swelling, difficulty swallowing , pain with swallowing, change in voice. NECK: Denies acute: neck pain, neck swelling, stiff neck. HEART: Denies acute : chest pain, palpitations, LUNGS: Denies acute: SOB, wheezing, cough, hemoptysis ABDOMEN: Denies acute: Vomiting, diarrhea, melena , hematemesis, hematochezia SKIN: Denies acute: rash, redness, lesions, itchiness. EXTREMITIES: Denies acute: calf pain, numbness, tingling, weakness, denies pain in extremity. Denies acute: Low back pain. Neuro: Denies acute: focal neurological deficit, motor or sensory focal neurological deficit, tremors, seizure like activity, confusion, dizziness, change in mental status, loss of bowel or bladder function, cauda equina like symptoms. : Denies acute: dysuria, hematuria, flank pain, increase in urinary frequency. PSYCH: Denies acute: hallucination, suicidal ideation, homicidal ideation. PHYSICAL EXAM: General: -----moderate---acute distress, awake and alert. Head: normocephalic, atraumatic. Neck: supple, trachea is midline, no swelling. Throat: Normal phonation. Eyes:, no erythema, no purulent discharge, no proptosis, no icterus. Heart: regular rate, regular rhythm, no significant murmur appreciated. Lungs: no apparent respiratory distress, Able to speak in full sentences. No wheezing, no rhonchi, no crackles. No stridors Clear to auscultation bilaterally. Abdomen: Periumbilical tender to palpation, non distended, soft, no guarding, no rebound, + bowel sounds. Obese Neuro: Awake, Alert, oriented to name, self, situation, follows commands GCS=15. Speech is normal. Skin: no petechia, no purpura, no cyanosis, non-pale, not jaundice. Lower extremities: --trace- Pitting edema no deformity, no focal swelling, no calf TTP. Makes eye contact. moves all four extremities. Face: no apparent facial droop. Ambulating in the ED independently. ED COURSE: DISCLAIMER: This medical document was created using an electronic medical record system with voice recognition software and computerized dictation system. Although this document has been carefully reviewed, there might still be some phonetic and typographical errors. Occasional wrong-word or "sound-alike" substitutions may have occurred due to the inherent limitations of voice recognition software. These areas are purely typographical due to imperfections of the software programs and do not reflect any compromise in the patient's medical care. Please read the chart carefully and recognize, using context, where these substitutions have occurred. Time Seen by MD: 16:20 Primary Care Provider: UNK Reviewed Notes: Nurses Notes, Medications, Allergies Allergies: Coded Allergies: NO KNOWN ALLERGIES (Unverified , 07/10/17) Home Meds Active Scripts Magnesium Citrate (Onelax Magnesium Citrate) 1.745 Gm/30 Ml [place], 1.745 GM PO QID PRN for 10 Days, #120 ML Prov:TAN ORANTES MD 11/22/24 Bisacodyl (Dulcolax) 10 Mg Sup, 10 MG RE QID PRN for 10 Days, #30 SUPP Prov:TAN ORANTES MD 11/22/24 Polyethylene Glycol 3350 (Miralax) 17 Gm Pow, 17 GM PO BID for 60 Days, #120 POW Prov:TAN ORANTES MD 11/22/24 Reported Medications Meclizine Hcl (Meclizine Hcl) 12.5 Mg Tab, 12.5 MG PO, TAB 09/19/25 Benzonatate (Benzonatate) 100 Mg Cap, 1-2 CAP PO Q4HR, #60 CAP 09/19/25 Carvedilol (Carvedilol) 3.125 Mg Tab, 1 TAB PO DAILY, #60 TAB 3 Refills 09/19/25 Sacubitril-Valsartan (Entresto 24-26 mg) 1 Tab Tab, 1 TAB PO, TAB 09/19/25 Empagliflozin (Jardiance) 10 Mg Tab, 10 MG PO, TAB 09/19/25 Furosemide (Furosemide) 20 Mg Tab, 1 TAB PO DAILY, #90 TAB 1 Refill 09/19/25 Dupilumab (Dupixent) 300 Mg/2 Ml Inj, 300 MG SC, INJ 09/19/25 Magnesium Oxide (MAGNESIUM OXIDE) Unknown Strength Tab, PO DAILY 01/21/21 Cholecalciferol (VITAMIN D3) Unknown Strength Tab, PO DAILY 01/21/21 Zinc Sulfate (Zinc Sulfate) Unknown Strength Cap, PO DAILY 01/21/21 Albuterol Sulfate (VENTOLIN MDI) 90 Mcg Ih, 2 PUFF IN Q6HP 01/21/21 Atorvastatin Calcium (ATORVASTATIN CALCIUM) 40 Mg Tab, 1 TAB PO HS 01/21/21 Warfarin Sodium (Warfarin Sodium) 4 Mg Tab, 4 MG PO DAILY EXCEPT Sunday10/28/20 Information Source: Patient, Emergency Med Personnel Mode of Arrival: EMS Timing: Weeks Was a procedure done? Was a procedure done?: No GI differential Dx Differential Diagnosis: Other (DDX include but not limited to diverticulitis, colitis, gastroenteritis, acute abdomen, SBO, enteritis, constipation, volvulus, appendicitis, Gallbladder disease, choledocolithiasis, ascending cholangitis, pancreatitis, intraAbdominal mass/neoplasm, hepatitis, UTI, pylonephritis, kidney stone, aneurysm, dissection, Inflammatory bowel disease, gastroparesis, ischemic bowel.) X-Ray, Labs, Meds, VS Vital Signs Date Time Temp Pulse Resp B/P (MAP) Pulse Ox O2 Delivery O2 Flow Rate FiO2 09/17/25 21:44 98.6 116 19 144/88 (106) 96 98.6 09/17/25 19:20 97.4 104 24 136/89 (105) 93 97.4 09/17/25 19:20 Room Air* 0 21 09/17/25 18:26 148/97 09/17/25 18:24 98.1 93 17 148/97 (114) 95 98.1 09/17/25 18:15 94 18 98 Room Air* 0 21 09/17/25 18:00 83 09/17/25 16:10 98.4 81 18 156/90 97 98.4 Lab Test 09/17/25 17:42 09/17/25 16:42 Range/Units Troponin I High Sensitivity 3 L 3 L </=54 ng/L White Blood Count 12.8 H 4.4-10.8 10^3/uL Red Blood Count 5.73 4.5-5.90 10^6/uL Hemoglobin 16.4 13.5-17.5 g/dL Hematocrit 49.1 41.0-53.0 % Mean Corpuscular Volume 85.8 80.0-100.0 fL Mean Corpuscular Hemoglobin 28.7 28.0-32.0 pg Mean Corpuscular Hemoglobin Concent 33.5 32.0-36.0 g/dL Red Cell Distribution Width 16.7 H 11.8-14.3 % Platelet Count 174 140-450 10^3/uL Mean Platelet Volume 8.5 6.9-10.8 fL Neutrophils (%) (Auto) 81.0 H 37.0-80.0 % Lymphocytes (%) (Auto) 11.5 10.0-50.0 % Monocytes (%) (Auto) 5.4 0.0-12.0 % Eosinophils (%) (Auto) 1.3 0.0-7.0 % Basophils (%) (Auto) 0.8 0.0-2.0 % Neutrophils # (Auto) 10.4 H 1.6-8.6 10 ^3/uL Lymphocytes # (Auto) 1.5 0.4-5.4 10 ^3/uL Monocytes # (Auto) 0.7 0-1.3 10 ^3/uL Eosinophils # (Auto) 0.2 0-0.8 10 ^3/uL Basophils # (Auto) 0.1 0-0.2 10 ^3/uL Nucleated Red Blood Cells 0.1 % Sodium Level 141 136-145 mmol/L Potassium Level 3.8 3.5-5.1 mmol/L Chloride Level 107 98-107 mmol/L Carbon Dioxide Level 23 20-31 mmol/L Anion Gap 11 5-15 Blood Urea Nitrogen 15 9-23 mg/dL Creatinine 1.15 0.700-1.30 mg/dL Glomerular Filtration Rate Calc 68 >90 mL/min BUN/Creatinine Ratio 13.0 10.0-20.0 Serum Glucose 127 H 74-106 mg/dL Lactic Acid Level 1.7 0.4-2.0 mmol/L Calcium Level 9.7 8.7-10.4 mg/dL Total Bilirubin 2.3 H 0.2-1.0 mg/dL Aspartate Amino Transferase (AST) 15 13-40 U/L Alanine Aminotransferase (ALT) 18 7-40 U/L Alkaline Phosphatase 105 46-116 U/L B-Type Natriuretic Peptide 89.59 0-100 pg/mL Total Protein 7.8 5.7-8.2 g/dL Albumin 4.8 3.2-4.8 g/dL Lipase 35 12-53 U/L Microbiology Date/Time Source Procedure Growth Status 09/17/25 20:10 Blood Blood Culture - Preliminary Resulted 09/17/25 19:55 Blood Blood Culture - Preliminary NO GROWTH AFTER 48 HOURS OF INCUBATION. Resulted [place] [id number] Ph: [phone] DIAGNOSTIC IMAGING Diagnostic Imaging Report : [id number] Signed PATIENT: SANTINO PAZ ACCT: [id number] UNIT: [id number] : 1955 LOC: ER ROOM / BED: / AGE / SEX: 69 / M ADM STATUS: REG ER SERVICE [id number] ORDERING PHYSICIAN: OLIVIER GRIGGS DO PROCEDURE(s): ABPL - CT AB PEL WO CON-NO ORAL OR IV REASON: abd pain, ORDER NUMBER(s): [id number], ACCESSION NUMBER(s): [id number] Indication: abd pain, Technique: CT axial images of the abdomen and pelvis are obtained without contrast. Coronal and sagittal reformats were obtained. Radiation Dose Information: CTDI volume is 17.9 mGy. Dose-length product is 1051 mGy*cm Comparison: CT ABD PELVIS WO CONTRAST on DOS: 01/21/21 FINDINGS: There is limited interpretation of the abdomen and pelvis without administration of intravenous contrast. The lung bases demonstrate atelectasis. 4 mm right lower lobe solid nodule. Tiny right pleural effusion. Adrenal glands, spleen, pancreas unremarkable in shape. Liver unremarkable in shape. Cholelithiasis. No hydronephrosis/ nephrolithiasis. Small hiatal hernia. Stomach partially distended. Small bowel loops are demonstrating fecal like contents within the mid to lower abdomen. There is abnormal bowel wall thickening with surrounding stranding within the right anterior lower abdomen, axial image 62 of 107. Proximal to this, Fecal like contents within the small bowel without abnormal distention. Distention of the small bowel up to 3.1 cm with surrounding stranding. Moderate volume stool throughout the colon. Abdominal aortic atherosclerotic disease. Bladder partially distended. Trace free pelvic fluid. Prostate measures 5.5 cm transversely. No inguinal lympha denopathy. Xsuv-hz-afjublbv bilateral sacroiliac degenerative joint disease. [id number] thoracolumbar degenerative disc disease. Sclerotic changes bilateral femoral heads . No evidence for subchondral collapse. IMPRESSION: Limited evaluation without contrast. Abnormal dilatation of small bowel loops with associated bowel wall thickening and luminal narrowing most pronounced in the lower abdomen as described above which can be secondary to enteritis, small bowel obstruction. Recommend surgical consultation for further evaluation. Cholelithiasis. Trace free pelvic fluid. 4 mm right lower lobe solid nodule. Recommend follow-up per Fleischner society criteria. Sclerotic changes bilateral femoral heads suggestive of avascular necrosis. Prostatomegaly. Correlate with PSA levels Other findings as described. ATED BY: NAVEEN JOHNSON MD DICTATED DATE/TIME: 09/17/251732 SIGNED BY: NAVEEN JOHNSON MD SIGNED DATE/TIME: 09/17/251732 Time of 1ST Reevaluation: 16:50 Reevaluation 1ST: Unchanged Patient Education/Counseling: Diagnosis, Treatment Family Education/Counseling: No Family Present Comments MDM: patient presented with the above HPI.--abdominal pain----workup was initiated. patient was found with the above mentioned diagnosis. the following medications were ordered: please refer to order lists of meds and tests obtained by myself Dr. Griggs. Patient ED course and VS have been stabilized. Patient has been reassessed in the ED and remained in a stable condition. Pertinent incidental findings were discussed with the patient and/or family. Patient/family voices understanding and is agreeable with plan. Patient has been observed in the ED adequate length of time to insure improveme nt/stability. Escalation of care considered: Consideration of escalation to observation or admission Patient was given fluids, Zofran, Flagyl, fentanyl Patient was ADMITTED to the medicine team for further evaluation and treatment of their presentation. All the reports of any imaging studies that were ordered by myself were reviewed by myself. SEPSIS Sepsis Screen Physician Orders Ct Ab Pel Wo Con-No Oral Or Iv (09/17/25 16:13) Information Systems Project Manager (09/17/25 ) Electrocardigram (09/17/25 16:24) Npo Except For Medications (09/17/25 16:24) * Surgical Consult (09/17/25 ) Blood Culture (09/17/25 19:56) Chest Portable (09/17/25 19:57) Vital Signs Date Time Temp Pulse Resp B/P (MAP) Pulse Ox O2 Delivery O2 Flow Rate FiO2 09/17/25 21:44 98.6 116 19 144/88 (106) 96 98.6 09/17/25 19:20 97.4 104 24 136/89 (105) 93 97.4 09/17/25 19:20 Room Air* 0 21 09/17/25 18:26 148/97 09/17/25 18:24 98.1 93 17 148/97 (114) 95 98.1 09/17/25 18:15 94 18 98 Room Air* 0 21 09/17/25 18:00 83 09/17/25 16:10 98.4 81 18 156/90 97 98.4 Laboratory Tests Test 09/17/25 16:42 Lactic Acid Level 1.7 mmol/L (0.4-2.0) White Blood Count 12.8 10^3/uL (4.4-10.8) H Departure 1 Departure Time of Disposition: 18:19 Impression: Primary Impression: Intractable abdominal pain Additional Impressions: Abnormal finding on CT scan SBO (small bowel obstruction) Disposition: ADMITTED INPATIENT Admit to: [facility] Condition: Guarded Discharged With: Self Critical Care Note Critical Care Time?: Yes (35 min-critical care time only) Heart Score Heart Score: Heart Score Response (Comments) Value History N/A 0 EKG N/A 0 Age N/A 0 Risk Factors N/A 0 Troponin N/A 0 Total 0 I personally scribed for OLIVIER GRIGGS DO ([email or web address]) on 09/17/25 at 16:22. Electronically submitted by Abdelrahman Jernigan ([email or web address]). I personally scribed for OLIVIER GRIGGS DO ([email or web address]) on 09/17/25 at 18:32. Electronically submitted by Abdelrahman Jernigan ([email or web address]). I personally scribed for OLIVIER GRIGGS DO ([email or web address]) on 09/18/25 at 00:08. Electronically submitted by Sammy Amador ([facility] OLIVIER GRIGGS DO Sep 17, 2025 16:22
[2025-09-17 16:58] LABS: Hematocrit 49.1 % (41.0-53.0); Hemoglobin 16.4 g/dL (13.5-17.5); Mean Corpuscular Hemoglobin 28.7 pg (28.0-32.0); Mean Corpuscular Volume 85.8 fL (80.0-100.0); Nucleated Red Blood Cells % 0.1 %
[2025-09-17 17:13] LABS: Alanine Aminotransferase 18 U/L (7-40); Albumin 4.8 g/dL (3.2-4.8); Alkaline Phosphatase 105 U/L (46-116); Anion Gap 11 (5-15); BUN/Creatinine Ratio 13.0 (10.0-20.0); Blood Urea Nitrogen 15 mg/dL (9-23); Calcium 9.7 mg/dL (8.7-10.4); Carbon Dioxide 23 mmol/L (20-31); Chloride 107 mmol/L (98-107); Lipase 35 U/L (12-53); Potassium 3.8 mmol/L (3.5-5.1); Sodium 141 mmol/L (136-145); Total Protein 7.8 g/dL (5.7-8.2)
[2025-09-17 17:14] LABS: Bilirubin, Total 2.3 mg/dL (0.2-1.0); Glucose 127 mg/dL (74-106)
--- NOTE | 2025-09-17 17:32 | DVH ---
Indication: abd pain, Technique: CT axial images of the abdomen and pelvis are obtained without contrast. Coronal and sagit geovani reformats were obtained. Radiation Dose Information: CTDI volume is 17.9 mGy. Dose-length product is 1051 mGy*cm Comparison: CT ABD PELVIS WO CONTRAST on DOS: 01/21/21 FINDINGS: There is limited interpretation of the abdomen and pelvis without administration of intravenous contr ast. The lung bases demonstrate atelectasis. 4 mm right lower lobe solid nodule. Tiny right pleural effusi on. Adrenal glands, spleen, pancreas unremarkable in shape. Liver unremarkable in shape. Cholelithiasis. No hydronephrosis/ nephrolithiasis. Small hiatal hernia. Stomach partially distended. Small bowel loops are demonstrating fecal like con tents within the mid to lower abdomen. There is abnormal bowel wall thickening with surrounding stran ding within the right anterior lower abdomen, axial image 62 of 107. Proximal to this, Fecal like con tents within the small bowel without abnormal distention. Distention of the small bowel up to 3.1 cm with surrounding stranding. Moderate volume stool throughout the colon. Abdominal aortic atherosclerotic disease. Bladder partially distended. Trace free pelvic fluid. Pros umana measures 5.5 cm transversely. No inguinal lymphadenopathy. Ijuz-zf-ubuxymlj bilateral sacroiliac degenerative joint disease. Ediw-vg-szzteqbk thoracolumbar dege nerative disc disease. Sclerotic changes bilateral femoral heads . No evidence for subchondral colla pse. IMPRESSION: Limited evaluation without contrast. Abnormal dilatation of small bowel loops with associated bowel wall thickening and luminal narrowing most pronounced in the lower abdomen as described above which can be secondary to enteritis, small zach wel obstruction. Recommend surgical consultation for further evaluation. Cholelithiasis. Trace free pelvic fluid. 4 mm right lower lobe solid nodule. Recommend follow-up per Fleischner society criteria. Sclerotic changes bilateral femoral heads suggestive of avascular necrosis. Prostatomegaly. Correlate with PSA levels Other findings as described.
[2025-09-17] MEDS ORDERED: SODIUM CHLORIDE 0.9% 1,000 ML IV ONE (18:00)
[2025-09-17 18:15] VITALS: PULSE 94; RESP 18; O2SAT 98
[2025-09-17] MEDS: fentaNYL CITRATE 100 MCG/2 ML VL IV ONE (18:26)
[2025-09-17] MEDS: ONDANSETRON HCL 4 MG/2 ML VIAL IV ONE ×2 (18:27→20:00)
[2025-09-17] MEDS: SODIUM CHLORIDE 0.9% 250 ML IV ONE (21:23)
--- NOTE | 2025-09-17 21:41 | DVH ---
CHEST RADIOGRAPH Indication: Pleural effusion Technique: Single frontal view of the chest was obtained Comparison: XY CHEST PORTABLE on DOS: 09/04/25, XR CHEST 1 VIEW on DOS: 01/14/25, XR CHEST 1 VIEW on D OS: 01/13/25 FINDINGS: Lines and Tubes: Dual-chamber pacemaker in place with pulse generator over the left chest. Right emma ulder prosthesis in place. Lungs: Mildly prominent bronchovascular markings in the left base elevation of the left diaphragm. Pleura: No effusion. No pneumothorax. Cardiomediastinal contours: Unremarkable Bones: No acute osseous abnormality. IMPRESSION: 1. Possible developing airspace disease left base may represent pneumonia. May also be a small left p leural effusion recommend ultrasound of the chest this is of clinical concern.
[2025-09-17] MEDS ORDERED: MORPHINE SULFATE INJ 2 MG/ml SYRG IV PRN (22:00)
[2025-09-17] MEDS ORDERED: HYDROcodone-ACET 5/325MG TAB PO PRN (22:00)
[2025-09-17] MEDS ORDERED: NITROGLYCERIN 0.4 MG SL TAB SL PRN (22:00)
[2025-09-17] MEDS: SODIUM CHLORIDE 0.9% 1,000 ML IV SCH (22:00)
[2025-09-17] MEDS ORDERED: LABETALOL HCL 20 MG/4 ML VL IV PRN (22:00)
[2025-09-17] MEDS ORDERED: ACETAMINOPHEN 325 MG TAB PO PRN (22:00)
--- NOTE | 2025-09-17 22:04 | DVHHP2 ---
History of Present Illness Reason for Visit: SBO (small bowel obstruction) History of Present Illness The patient is a 69-year-old male with past medical history of hypertension, blood clot on Coumadin, CHF, hyperlipidemia, and chronic hernia presented to [facility] ED with complaint of abdominal pain. Patient reports he has been experiencing abdominal pain associated with nausea and vomiting. Patient was seen and evaluated in the ED, laboratory data shows WBC 12.8, platelets 174, sodium 141, potassium 3.8, BUN 15, creatinine 1.15, glucose 127, calcium 9.7, BNP 89.59, troponin three, total bilirubin 2.3, lipase 35, lactic acid 1.7, blood pressure 144/88, heart rate 104, temperature 98.6 F, O2 saturation 96% on room. Abdomen/pelvis CT revealing abdominal dilatation of small bowel loops with associated bowel wall thickening and luminal narrowing most pronounced in the lower abdomen which can be secondary to enteritis, small- bowel obstruction; 4 mm right lower lobe solid nodules; prostatomegaly. Chest x- ray showed possible developing airspace disease left base may represent pneumonia, may also be a small left pleural effusion. Please see medication orders section in the computer. On my assessment, patient denied chest pain, no dizziness, headache, diaphoresis, shortness of breaths, no diarrhea, nausea or vomiting at this moment, no fever, chills. Patient was admitted for further evaluation and medical management. Past Medical History Blood clot, HTN, HLD, CHF, Chronic Hernias Past Surgical History Pacemaker, Hernia repair, Bilateral Shoulder Replacement Family History Reviewed, noncontributory to the management of this case. Past Social History The patient lives at home, denies smoking, alcohol or illicit drugs abuse. Review of Systems Constitutional: Yes: Weakness; No: Fever, Chills, Sweats, Malaise, Other Eyes: No: Pain, Vision change, Conjunctivae inflammation, Eyelid inflammation, Other, Redness ENT: No: Ear pain, Ear discharge, Nose pain, Nose discharge, Nose congestion, Mouth pain, Mouth swelling, Throat pain, Throat swelling, Other Respiratory: No: Cough, Dry, Shortness of breath, SOB with excertion, Wheezing, Hemoptysis, Pleuritic Pain, Sputum, Wheezing, Other Cardiovascular: No: Chest Pain, Palpitations, Orthopnea, Paroxysmal Noc. Dyspnea, Edema, Lt Headedness, Other Gastrointestinal: Nausea, Vomiting, Abdominal Pain; No: Diarrhea, Constipation, Melena, Hematochezia, Other Genitourinary: No Dysuria, No Frequency, No Incontinence, No Hematuria, No Retention, No Other Musculoskeletal: No: other, neck pain, shoulder pain, arm pain, back pain, hand pain, leg pain, foot pain Skin: No: Rash, Lesions, Jaundice, Bruising, Other Neurological: No: Weakness, Numbness, Incoordination, Change in speech, Confusion, Seizures, Other Allergies: Coded Allergies: NO KNOWN ALLERGIES (Unverified , 07/10/17) Exam Vital Signs Vital Signs Date Time Temp Pulse Resp B/P (MAP) Pulse Ox O2 Delivery O2 Flow Rate FiO2 09/17/25 21:44 98.6 116 19 144/88 (106) 96 98.6 09/17/25 19:20 Room Air* 0 21 General Appearance: Alert, Oriented X3, Cooperative, No acute distress HEENT: Atraumatic, PERRLA, EOMI, Mucous membr. moist/pink Respiratory: Normal air movement Cardiovascular: Regular rate, Normal S1, Normal S2, No murmurs Abdominal: Normal bowel sounds, Soft, No hepatospenomegaly, No masses, Other (Reports tenderness) Extremities: No clubbing, No cyanosis, No edema, Normal pulses, No tenderness/swelling Skin: No rashes, No breakdown, No significant lesion Neuro: Normal speech, Normal tone, Sensation intact, Cranial nerves 3-12 NL, Reflexes 2+, Other (Generalized weakness) Psych/Mental Status: Mental status NL, Mood NL Labs/Xrays Labs Test 09/17/25 17:42 09/17/25 16:42 Range/Units Troponin I High Sensitivity 3 L </=54 ng/L White Blood Count 12.8 H 4.4-10.8 10^3/uL Red Blood Count 5.73 4.5-5.90 10^6/uL Hemoglobin 16.4 13.5-17.5 g/dL Hematocrit 49.1 41.0-53.0 % Mean Corpuscular Volume 85.8 80.0-100.0 fL Mean Corpuscular Hemoglobin 28.7 28.0-32.0 pg Mean Corpuscular Hemoglobin Concent 33.5 32.0-36.0 g/dL Red Cell Distribution Width 16.7 H 11.8-14.3 % Platelet Count 174 140-450 10^3/uL Mean Platelet Volume 8.5 6.9-10.8 fL Neutrophils (%) (Auto) 81.0 H 37.0-80.0 % Lymphocytes (%) (Auto) 11.5 10.0-50.0 % Monocytes (%) (Auto) 5.4 0.0-12.0 % Eosinophils (%) (Auto) 1.3 0.0-7.0 % Basophils (%) (Auto) 0.8 0.0-2.0 % Neutrophils # (Auto) 10.4 H 1.6-8.6 10 ^3/uL Lymphocytes # (Auto) 1.5 0.4-5.4 10 ^3/uL Monocytes # (Auto) 0.7 0-1.3 10 ^3/uL Eosinophils # (Auto) 0.2 0-0.8 10 ^3/uL Basophils # (Auto) 0.1 0-0.2 10 ^3/uL Nucleated Red Blood Cells 0.1 % Sodium Level 141 136-145 mmol/L Potassium Level 3.8 3.5-5.1 mmol/L Chloride Level 107 98-107 mmol/L Carbon Dioxide Level 23 20-31 mmol/L Anion Gap 11 5-15 Blood Urea Nitrogen 15 9-23 mg/dL Creatinine 1.15 0.700-1.30 mg/dL Glomerular Filtration Rate Calc 68 >90 mL/min BUN/Creatinine Ratio 13.0 10.0-20.0 Serum Glucose 127 H 74-106 mg/dL Lactic Acid Level 1.7 0.4-2.0 mmol/L Calcium Level 9.7 8.7-10.4 mg/dL Total Bilirubin 2.3 H 0.2-1.0 mg/dL Aspartate Amino Transferase (AST) 15 13-40 U/L Alanine Aminotransferase (ALT) 18 7-40 U/L Alkaline Phosphatase 105 46-116 U/L B-Type Natriuretic Peptide 89.59 0-100 pg/mL Total Protein 7.8 5.7-8.2 g/dL Albumin 4.8 3.2-4.8 g/dL Lipase 35 12-53 U/L PATIENT: SANTINO PAZ ACCT: [id number] UNIT: [id number] : 1955 LOC: ER ROOM / BED: / AGE / SEX: 69 / M ADM STATUS: REG ER SERVICE 1613 ORDERING PHYSICIAN: OLIVIER GRIGGS DO PROCEDURE(s): ABPL - CT AB PEL WO CON-NO ORAL OR IV REASON: abd pain, ORDER NUMBER(s): [id number], ACCESSION NUMBER(s): [id number] Indication: abd pain, Technique: CT axial images of the abdomen and pelvis are obtained without contrast. Coronal and sagittal reformats were obtained. Radiation Dose Information: CTDI volume is 17.9 mGy. Dose-length product is 1051 mGy*cm Comparison: CT ABD PELVIS WO CONTRAST on DOS: 01/21/21 FINDINGS: There is limited interpretation of the abdomen and pelvis without administration of intravenous contrast. The lung bases demonstrate atelectasis. 4 mm right lower lobe solid nodule. Tiny right pleural effusion. Adrenal glands, spleen, pancreas unremarkable in shape. Liver unremarkable in shape. Cholelithiasis. No hydronephrosis/ nephrolithiasis. Small hiatal hernia. Stomach partially distended. Small bowel loops are demonstrating fecal like contents within the mid to lower abdomen. There is abnormal bowel wall thickening with surrounding stranding within the right anterior lower abdomen, axial image 62 of 107. Proximal to this, Fecal like contents within the small bowel without abnormal distention. Distention of the small bowel up to 3.1 cm with surrounding stranding. Moderate volume stool throughout the colon. Abdominal aortic atherosclerotic disease. Bladder partially distended. Trace free pelvic fluid. Prostate measures 5.5 cm transversely. No inguinal lymphadenopathy. [id number] bilateral sacroiliac degenerative joint disease. [id number] thoracolumbar degenerative disc disease. Sclerotic changes bilateral femoral heads. No evidence for subchondral collapse. IMPRESSION: Limited evaluation without contrast. Abnormal dilatation of small bowel loops with associated bowel wall thickening and luminal narrowing most pronounced in the lower abdomen as described above which can be secondary to enteritis, small bowel obstruction. Recommend surgical consultation for further evaluation. Cholelithiasis. Trace free pelvic fluid. 4 mm right lower lobe solid nodule. Recommend follow-up per Fleischner society criteria. Sclerotic changes bilateral femoral heads suggestive of avascular necrosis. Prostatomegaly. Correlate with PSA levels Other findings as described. ORDERING PHYSICIAN: OLIVIER GRIGGS DO PROCEDURE(s): CXRP - CHEST PORTABLE REASON: Pleural effusion ORDER NUMBER(s): [id number], ACCESSION NUMBER(s): [id number] CHEST RADIOGRAPH Indication: Pleural effusion Technique: Single frontal view of the chest was obtained Comparison: XY CHEST PORTABLE on DOS: 09/04/25, XR CHEST 1 VIEW on DOS: 01/14/25, XR CHEST 1 VIEW on DOS: 01/13/25 FINDINGS: Lines and Tubes: Dual-chamber pacemaker in place with pulse generator over the left chest. Right shoulder prosthesis in place. Lungs: Mildly prominent bronchovascular markings in the left base elevation of the left diaphragm. Pleura: No effusion. No pneumothorax. Cardiomediastinal contours: Unremarkable Bones: No acute osseous abnormality. IMPRESSION: 1. Possible developing airspace disease left base may represent pneumonia. May also be a small left pleural effusion recommend ultrasound of the chest this is of clinical concern. SEPSIS Sepsis Screen Date sepsis recognized/suspect: Sep 17, 2025 Time Sepsis recognized/suspect: 1919 Recent Procedure: No On Antibiotic Therapy: No Respiratory Rate >20: Yes Heart Rate >90: Yes Temp<36 C (96.8 F) or >38.3 C: No SBP <90 or MAP <65 mmHG: No New Acute Mental Status Change: No Is the patient on CPAP, BIPAP,: No Physician Orders Ct Ab Pel Wo Con-No Oral Or Iv (09/17/25 16:13) Surgical Dental Assistant (09/17/25 ) Urinalysis (09/17/25 16:24) Electrocardigram (09/17/25 16:24) Npo Except For Medications (09/17/25 16:24) Npo (Nothing By Mouth) Diet (09/17/25 Dinner) * Surgical Consult (09/17/25 ) Blood Culture (09/17/25 19:56) Chest Portable (09/17/25 19:57) Sodium Chloride 0.9% (09/17/25 21:30) Metronidazole Ivpb Flagyl (09/17/25 22:00) Labetalol Hcl (Labetalol Hcl) (09/17/25 22:00) Admit (09/17/25 21:57) Allergies (09/17/25 21:57) Code Status (09/17/25 21:57) 0.9% Ns 1000 Ml (09/17/25 22:00) Oxygen Per Hour (09/17/25 21:57) Hydrocodone-Acet 5/325mg Tab ([place] 5/32 (09/17/25 22:00) Ondansetron Hcl (Zofran) (09/17/25 22:00) Complete Blood Count (09/18/25 04:00) Comprehensive Metabolic Panel (09/18/25 04:00) Condition: Serious (09/17/25 21:57) Acetaminophen Tablet (Tylenol Tablet) (09/17/25 22:00) Bedrest With Bathroom Privileg (09/17/25 21:57) Maintain Bed Rest (09/17/25 21:57) Morphine Sulfate Injection (09/17/25 22:00) Sequential Compression Device (09/17/25 ) Nitroglycerin Sublingual (Ntrostat Subli (09/17/25 22:00) Morphine Sulfate Injection (09/17/25 22:00) Stat Ekg For Chest Pain (09/17/25:57) Notify Md Of Changes From Base (09/17/25 21:57) Residential Real Estate Agent For 24 Hours (09/17/25 21:57) Emergency Dysrhythmia Protocol (09/17/25 21:57) Rhythm Strips Once Every Shift (09/17/25 21:57) Oxygen By Nasal Cannula (09/17/25 21:57) Azithromycin 500mg/ 250ml (Zithromax 50 (09/18/25 10:00) Azithromycin 500mg/ 250ml (Zithromax 50 (09/17/25 22:00) Vital Signs Date Time Temp Pulse Resp B/P (MAP) Pulse Ox O2 Delivery O2 Flow Rate FiO2 09/17/25 21:44 98.6 116 19 144/88 (106) 96 98.6 09/17/25 19:20 97.4 104 24 136/89 (105) 93 97.4 09/17/25 19:20 Room Air* 0 21 09/17/25 18:26 148/97 09/17/25 18:24 98.1 93 17 148/97 (114) 95 98.1 09/17/25 18:15 94 18 98 Room Air* 0 21 09/17/25 18:00 83 09/17/25 16:10 98.4 81 18 156/90 97 98.4 Laboratory Tests Test 09/17/25 16:42 Lactic Acid Level 1.7 mmol/L (0.4-2.0) White Blood Count 12.8 10^3/uL (4.4-10.8) H Medications Medications Dose Ordered Sig/Lobito Route Start Time Stop Time Status Last Admin Dose Admin Fentanyl Citrate 100 mcg ONCE ONCE IV 09/17/25 18:00 09/17/25 18:01 DC 09/17/25 18:26 100 MCG Metronidazole 100 ml @ 100 mls/hr ONCE ONCE IV 09/17/25 19:30 09/17/25 20:29 DC 09/17/25 20:11 100 MLS/HR Ondansetron HCl 4 mg ONCE ONCE IV 09/17/25 18:00 09/17/25 18:01 DC 09/17/25 18:27 4 MG Ondansetron HCl 4 mg ONCE ONCE IV 09/17/25 20:00 09/17/25 20:01 DC 09/17/25 20:00 4 MG Sodium Chloride 250 ml @ 250 mls/hr Q1H ONCE IV 09/17/25 21:30 09/17/25 22:29 09/17/25 21:23 250 MLS/HR Assessment/Plan Assessment/Plan Intractable abdominal pain SBO (small bowel obstruction) Leukocytosis, unspecified Intractable nausea and vomiting Pneumonia, unspecified organism Plan 1. Admit to telemetry unit 2. Management of NG tube 3. Pain control management 4. IV antibiotic management 5. Management of fluids and electrolytes 6. Consultation for surgery 7. Diagnostic test abdomen/pelvis CT 8. DVT prophylaxis-on SCDs 9. Repeat labs CBC, CMP in a.m. 10. Home medication reviewed and reconciled 11. Continue with current medical management 12. Treatment plan discussed with patient and RN. Patient verbalized understanding. Plan discussed with: Patient, Other (RN) My Orders Orders - SRAVANI SOLIS DNP Procedure Category Date Status Time Metronidazole Ivpb PHA 09/17/25 Transmitted Flagyl 22:00 Labetalol Hcl PHA 09/17/25 Transmitted (Labetalol Hcl) 22:00 Admit ADMIT 09/17/25 Transmitted 21:57 Allergies TYRONE 09/17/25 Transmitted 21:57 Code Status CODE 09/17/25 Transmitted 21:57 0.9% Ns 1000 Ml PHA 09/17/25 Transmitted 22:00 Oxygen Per Hour RT 09/17/25 Transmitted 21:57 Hydrocodone-Acet PHA 09/17/25 Transmitted 5/325mg Tab ([place] 22:00 Ondansetron Hcl PHA 09/17/25 Transmitted (Zofran) 22:00 Complete Blood Count LAB 09/18/25 Verified 04:00 Comprehensive LAB 09/18/25 Verified Metabolic Panel 04:00 Condition: Serious TYRONE 09/17/25 Transmitted 21:57 Acetaminophen Tablet PHA 09/17/25 Transmitted (Tylenol Tablet) 22:00 Bedrest With Bathroom [place] 09/17/25 Transmitted Privileg 21:57 Maintain Bed Rest [place] 09/17/25 Transmitted 21:57 Morphine Sulfate PHA 09/17/25 Transmitted Injection 22:00 Sequential [facility] 09/17/25 Transmitted Compression Device Nitroglycerin [facility] 09/17/25 Transmitted Sublingual (Ntrostat 22:00 Morphine Sulfate PHA 09/17/25 Transmitted Injection 22:00 Stat Ekg For Chest [facility] 09/17/25 Transmitted Pain 21:57 Notify Of Changes [facility] 09/17/25 Transmitted From Base 21:57 Residential Real Estate Agent For [facility] 09/17/25 Transmitted 24 Hours 21:57 Emergency Dysrhythmia [facility] 09/17/25 Transmitted Protocol 21:57 Rhythm Strips Once [facility] 09/17/25 Transmitted Every Shift 21:57 Oxygen By Nasal RT 09/17/25 Transmitted Cannula 21:57 Azithromycin 500mg/ PHA 09/18/25 Transmitted 250ml (Zithromax 50 10:00 Azithromycin 500mg/ PHA 09/17/25 Transmitted 250ml (Zithromax 50 22:00 Problem List: (1) SBO (small bowel obstruction) (2) Intractable abdominal pain (3) Leukocytosis, unspecified (4) Intractable nausea and vomiting (5) Pneumonia, unspecified organism Date of Service: Sep 17, 2025 Billing Provider: SRAVANI SOLIS DNP Common Visit Codes: [id number] INP/OBS CARE (HIGH) SRAVANI SOLIS DNP Sep 17, 2025 22:04
[2025-09-17] MEDS: AZITHROMYCIN 500MG/ 250ML 250 ML IV ONE (22:29)
[2025-09-17] MEDS: ONDANSETRON HCL 4 MG/2 ML VIAL IV PRN (22:29)
[2025-09-17] MEDS: MORPHINE SULFATE INJ 2 MG/ml SYRG IV PRN (22:33)
[2025-09-17 22:50] LABS: Urine Protein, UAD Negative (Negative)
[2025-09-18] VITALS (9 sets, daily range): BP systolic 130–145; BP diastolic 78–90; PULSE 80–111; RESP 16–20; TEMP 97.6–99.5; O2SAT 92–98
[2025-09-18 06:32] LABS: Hematocrit 49.3 % (41.0-53.0); Hemoglobin 16.7 g/dL (13.5-17.5); Mean Corpuscular Hemoglobin 29.2 pg (28.0-32.0); Mean Corpuscular Volume 86.3 fL (80.0-100.0); Nucleated Red Blood Cells % 0.1 %
[2025-09-18 06:48] LABS: INR 2.44 (0.9-1.15); Prothrombin Time 23.7 sec (9.3-11.8)
[2025-09-18 07:04] LABS: Alanine Aminotransferase 16 U/L (7-40); Albumin 4.5 g/dL (3.2-4.8); Alkaline Phosphatase 100 U/L (46-116); Anion Gap 14 (5-15); BUN/Creatinine Ratio 15.3 (10.0-20.0); Blood Urea Nitrogen 21 mg/dL (9-23); Calcium 9.4 mg/dL (8.7-10.4); Carbon Dioxide 22 mmol/L (20-31); Chloride 106 mmol/L (98-107); Potassium 4.2 mmol/L (3.5-5.1); Sodium 142 mmol/L (136-145); Total Protein 7.4 g/dL (5.7-8.2)
[2025-09-18 07:06] LABS: Bilirubin, Total 4.0 mg/dL (0.2-1.0); Glucose 167 mg/dL (74-106)
--- NOTE | 2025-09-18 12:14 | DVHPN2 ---
Reviewed: Care Plan, H&P, Labs, Medications, Previous Orders, Radiology Changes from previous H/P or p: No Changes Eyes: No Pain, No Vision change, No Conjunctivae inflammation, No Eyelid inflammation, No Other, No Redness ENT: No Ear pain, No Ear discharge, No Nose pain, No Nose discharge, No Nose congestion, No Mouth pain, No Mouth swelling, No Throat pain, No Throat swelling, No Other Cardiovascular: No Chest Pain, No Palpitations, No Orthopnea, No Paroxysmal Noc. Dyspnea, No Edema, No Lt Headedness, No Other Respiratory: No Cough, No Dry, No Shortness of breath, No SOB with excertion, No Wheezing, No Hemoptysis, No Pleuritic Pain, No Sputum, No Other Gastrointestinal: Nausea, Vomiting, Abdominal Pain; No Diarrhea, No Constipation, No Melena, No Hematochezia, No Other Genitourinary: No Dysuria, No Frequency, No Incontinence, No Hematuria, No Retention, No Other Musculoskeletal: No other, No neck pain, No shoulder pain, No arm pain, No back pain, No hand pain, No leg pain, No foot pain Skin: No Rash, No Lesions, No Jaundice, No Bruising, No Other Objective Vitals Vital Signs Date Time Temp Pulse Resp B/P (MAP) Pulse Ox O2 Delivery O2 Flow Rate FiO2 09/18/25 09:00 98.6 88 18 130/83 (99) 95 98.6 09/18/25 08:00 Nasal Cannula* 2 28 Intake/Output Intake and Output 09/18/25 07:00 Intake Total 2753 ml Balance 2753 ml Intake Oral 0 ml IV Total 2753 ml # Voids 1 Medications Current Medications Medications Dose Ordered Sig/Lobito Route Start Time Stop Time Status Last Admin Dose Admin Metronidazole 100 ml @ 100 mls/hr Q8HR IV 09/18/25 06:00 09/18/25 05:46 100 MLS/HR Labetalol HCl 5 mg Q2HPRN PRN IV 09/17/25 22:00 Sodium Chloride 1,000 ml @ 60 mls/hr [id number] IV 09/17/25 22:00 09/17/25 22:00 60 MLS/HR Acetaminophen/ Hydrocodone Bitart 1 tab Q4HP PRN PO 09/17/25 22:00 Ondansetron HCl 4 mg Q4HP PRN IV 09/17/25 22:00 09/17/25 22:29 4 MG Acetaminophen 650 mg Q6HP PRN PO 09/17/25 22:00 Morphine Sulfate 2 mg Q4HPRN PRN IV 09/17/25 22:00 09/17/25 22:33 2 MG Nitroglycerin 0.4 mg Q5MINP PRN SL 09/17/25 22:00 Morphine Sulfate 2 mg Q30M PRN IV 09/17/25 22:00 Azithromycin 250 ml @ 125 mls/hr DAILY@2200 IV 09/18/25 22:00 Warfarin Sodium RX PROTOCOL PER PHARMACY PO 09/18/25 01:30 Laboratory Results Laboratory Tests 09/18/25 05:56 Chemistry Test 09/17/25 16:42 09/18/25 05:56 Albumin 4.8 g/dL (3.2-4.8) 4.5 g/dL (3.2-4.8) Calcium Level 9.7 mg/dL (8.7-10.4) 9.4 mg/dL (8.7-10.4) Total Protein 7.8 g/dL (5.7-8.2) 7.4 g/dL (5.7-8.2) Coagulation Test 09/18/25 05:56 Prothrombin Time 23.7 sec (9.3-11.8) H Prothrombin Time INR 2.44 (0.9-1.15) H Lipid panel Test 09/17/25 16:42 Lipase 35 U/L (12-53) Cardiac Markers Test 09/17/25 16:42 B-Type Natriuretic Peptide 89.59 pg/mL (0-100) LFT Test 09/17/25 16:42 09/18/25 05:56 Alanine Aminotransferase (ALT) 18 U/L (7-40) 16 U/L (7-40) Alkaline Phosphatase 105 U/L (46-116) 100 U/L (46-116) Aspartate Amino Transferase (AST) 15 U/L (13-40) 15 U/L (13-40) Total Bilirubin 2.3 mg/dL (0.2-1.0) H 4.0 mg/dL (0.2-1.0) H Urinalysis Test 09/17/25 22:17 Urine Color Yellow (Yellow) Urine Clarity Clear (Clear) Urine pH 5.5 (5.0-9.0) Urine Specific [place] 1.039 (1.001-1.035) Urine Protein Negative (Negative) Urine Ketones 1+ (Negative) H Urine Blood Negative /uL (Negative) Urine Nitrite Negative (Negative) Urine Bilirubin Negative (Negative) Urine Urobilinogen Normal mg/dL (Negative) Urine Leukocyte Esterase Negative /uL (Negative) Urine RBC 2 /hpf (0 - 3) Urine Microscopic WBC 2 /HPF (0-3) Urine Squamous Epithelial Cells None seen /hpf (<5) Urine Bacteria None seen /hpf (None Seen) Urine Glucose 4+ mg/dL (Normal) H Labs and/or images reviewed: Labs reviewed by me, Image(s) reviewed by me Assessment/Plan Assessment/Plan Acute abdominal pain Acute small bowel obstruction: NPO: Consult by surgeon Dr. Kirby appreciated, small-bowel series pending Acute dehydration: IV fluids hypotension Hypercholesterolemia History of DVT on Coumadin CHF exacerbation Possible community-acquired pneumonia Gram-positive versus Gram-negative: Rocephin azithromycin Time spent 70 minutes Advanced care planning time 20 minutes Patient is full code Plan discussed with: Patient Date of Service: Sep 18, 2025 Billing Provider: BOLIVAR TORRES MD Common Visit Codes: [id number] CARE 30-74 MIN BOLIVAR TORRES MD Sep 18, 2025 12:14
--- NOTE | 2025-09-18 16:19 | DVH ---
Procedure: XY SMALL BOWEL SERIES-W GASTROGRA Reason for study/Clinical History: SMALL BOWEL OBSTRUCTION Comparison Study: None Technique: Single contrast small bowel series performed. FINDINGS/IMPRESSION: Initial escrow agent view of the abdomen and pelvis appears demonstrates no acute process. Proximal small zach wel loops appear dilated measuring up to 5.4 cm however no evidence of obstruction after contrast adm inistration. Contrast is identified within the colon by 3 hours. This represents a normal small bowel transit wesley estes
[2025-09-18] MEDS: WARFARIN SODIUM 2 MG TAB PO ONE (17:26)
[2025-09-18] MEDS: AZITHROMYCIN 500MG/ 250ML 250 ML IV SCH (21:38)
[2025-09-18] MEDS: PROCHLORPERAZINE EDISYLATE 5 MG/ML 2ML VIAL IV PRN (21:57)
[2025-09-19] VITALS (8 sets, daily range): BP systolic 129–158; BP diastolic 74–87; PULSE 75–109; RESP 16–18; TEMP 97.8–98.2; O2SAT 89–95
[2025-09-19 07:10] LABS: Hematocrit 49.3 % (41.0-53.0); Hemoglobin 16.5 g/dL (13.5-17.5); Mean Corpuscular Hemoglobin 29.0 pg (28.0-32.0); Mean Corpuscular Volume 86.9 fL (80.0-100.0); Nucleated Red Blood Cells % 0.1 %
[2025-09-19 07:24] LABS: INR 3.27 (0.9-1.15); Partial Thromboplastin Time 45.8 SEC (24.5-34.5); Prothrombin Time 30.8 sec (9.3-11.8)
[2025-09-19 07:30] LABS: Albumin 4.4 g/dL (3.2-4.8)
--- NOTE | 2025-09-19 09:11 | DVHPN2 ---
Progress Note - Dictate Date Seen: Sep 19, 2025 Medical Necessity Reason Pt with a Central, PICC or Fol: No Subjective E: no major events o/n. c/o nausea. no emesis. reports BM's. vital signs Vital Sign Date Time Temp Pulse Resp B/P (MAP) Pulse Ox O2 Delivery O2 Flow Rate FiO2 09/19/25 05:00 98.1 102 16 129/87 (101) 93 98.1 09/18/25 20:00 Nasal Cannula* 3 32 Total Intake and Output 09/18/25 09/18/25 09/19/25 15:00 23:00 07:00 Intake Total 380 ml 1350 ml Output Total 225 ml 350 ml Balance 155 ml 1000 ml medications Current Medications Medications Dose Ordered Sig/Lobito Route Start Time Stop Time Status Last Admin Dose Admin Metronidazole 100 ml @ 100 mls/hr Q8HR IV 09/18/25 06:00 09/19/25 04:58 100 MLS/HR Labetalol HCl 5 mg Q2HPRN PRN IV 09/17/25 22:00 Sodium Chloride 1,000 ml @ 60 mls/hr [id number] IV 09/17/25 22:00 09/19/25 06:23 60 MLS/HR Acetaminophen/ Hydrocodone Bitart 1 tab Q4HP PRN PO 09/17/25 22:00 Ondansetron HCl 4 mg Q4HP PRN IV 09/17/25 22:00 09/19/25 08:38 4 MG Acetaminophen 650 mg Q6HP PRN PO 09/17/25 22:00 Morphine Sulfate 2 mg Q4HPRN PRN IV 09/17/25 22:00 09/19/25 02:12 2 MG Nitroglycerin 0.4 mg Q5MINP PRN SL 09/17/25 22:00 Morphine Sulfate 2 mg Q30M PRN IV 09/17/25 22:00 Azithromycin 250 ml @ 125 mls/hr DAILY@2200 IV 09/18/25 22:00 09/18/25 21:38 125 MLS/HR Warfarin Sodium RX PROTOCOL PER PHARMACY PO 09/18/25 01:30 Prochlorperazine Edisylate 10 mg Q6HPRN PRN IV 09/18/25 21:15 09/19/25 04:58 10 MG objective GEN: NAD ABD: soft. NT. very min distended. SBFT: dilated small bowel but contrast in colon in 3 hrs. laboratory and microbiology Laboratory Tests 09/19/25 06:41 09/18/25 05:56 Test 09/18/25 05:56 Range/Units Serum Glucose 167 H 74-106 mg/dL Assessment/Plan A: 1. pSBO P: 1. clear liquid diet 2. ambulation Plan discussed with: Patient SAM BARNARD MD Sep 19, 2025 09:11
[2025-09-19] MEDS: FUROSEMIDE 20 MG TAB PO SCH (10:00)
--- NOTE | 2025-09-19 11:09 | DVHPN2 ---
Reviewed: Care Plan, H&P, Labs, Medications, Previous Orders, Radiology Changes from previous H/P or p: No Changes Eyes: No Pain, No Vision change, No Conjunctivae inflammation, No Eyelid inflammation, No Other, No Redness ENT: No Ear pain, No Ear discharge, No Nose pain, No Nose discharge, No Nose congestion, No Mouth pain, No Mouth swelling, No Throat pain, No Throat swelling, No Other Cardiovascular: No Chest Pain, No Palpitations, No Orthopnea, No Paroxysmal Noc. Dyspnea, No Edema, No Lt Headedness, No Other Respiratory: No Cough, No Dry, No Shortness of breath, No SOB with excertion, No Wheezing, No Hemoptysis, No Pleuritic Pain, No Sputum, No Other Gastrointestinal: Nausea, Vomiting, Abdominal Pain; No Diarrhea, No Constipation, No Melena, No Hematochezia, No Other Genitourinary: No Dysuria, No Frequency, No Incontinence, No Hematuria, No Retention, No Other Musculoskeletal: No other, No neck pain, No shoulder pain, No arm pain, No back pain, No hand pain, No leg pain, No foot pain Skin: No Rash, No Lesions, No Jaundice, No Bruising, No Other Objective Vitals Vital Signs Date Time Temp Pulse Resp B/P (MAP) Pulse Ox O2 Delivery O2 Flow Rate FiO2 09/19/25 09:00 98.1 106 18 140/85 (103) 92 98.1 09/19/25 08:00 Nasal Cannula* 2 28 Intake/Output Intake and Output 09/19/25 07:00 Intake Total 1730 ml Output Total 575 ml Balance 1155 ml Intake Oral 180 ml IV Total 1550 ml Output Urine Total 575 ml Medications Current Medications Medications Dose Ordered Sig/Lobito Route Start Time Stop Time Status Last Admin Dose Admin Metronidazole 100 ml @ 100 mls/hr Q8HR IV 09/18/25 06:00 09/19/25 04:58 100 MLS/HR Labetalol HCl 5 mg Q2HPRN PRN IV 09/17/25 22:00 Sodium Chloride 1,000 ml @ 60 mls/hr [id number] IV 09/17/25 22:00 09/19/25 06:23 60 MLS/HR Acetaminophen/ Hydrocodone Bitart 1 tab Q4HP PRN PO 09/17/25 22:00 Ondansetron HCl 4 mg Q4HP PRN IV 09/17/25 22:00 09/19/25 08:38 4 MG Acetaminophen 650 mg Q6HP PRN PO 09/17/25 22:00 Morphine Sulfate 2 mg Q4HPRN PRN IV 09/17/25 22:00 09/19/25 02:12 2 MG Nitroglycerin 0.4 mg Q5MINP PRN SL 09/17/25 22:00 Morphine Sulfate 2 mg Q30M PRN IV 09/17/25 22:00 Azithromycin 250 ml @ 125 mls/hr DAILY@2200 IV 09/18/25 22:00 09/18/25 21:38 125 MLS/HR Warfarin Sodium RX PROTOCOL PER PHARMACY PO 09/18/25 01:30 Prochlorperazine Edisylate 10 mg Q6HPRN PRN IV 09/18/25 21:15 09/19/25 04:58 10 MG Laboratory Results Laboratory Tests 09/18/25 05:56 09/19/25 06:41 Chemistry Test 09/19/25 06:41 Albumin 4.4 g/dL (3.2-4.8) Coagulation Test 09/19/25 06:41 Prothrombin Time 30.8 sec (9.3-11.8) H Prothrombin Time INR 3.27 (0.9-1.15) H Activated Partial Thromboplast Time 45.8 SEC (24.5-34.5) H Urinalysis Test 09/17/25 22:17 Urine Color Yellow (Yellow) Urine Clarity Clear (Clear) Urine pH 5.5 (5.0-9.0) Urine Specific [place] 1.039 (1.001-1.035) Urine Protein Negative (Negative) Urine Ketones 1+ (Negative) H Urine Blood Negative /uL (Negative) Urine Nitrite Negative (Negative) Urine Bilirubin Negative (Negative) Urine Urobilinogen Normal mg/dL (Negative) Urine Leukocyte Esterase Negative /uL (Negative) Urine RBC 2 /hpf (0 - 3) Urine Microscopic WBC 2 /HPF (0-3) Urine Squamous Epithelial Cells None seen /hpf (<5) Urine Bacteria None seen /hpf (None Seen) Urine Glucose 4+ mg/dL (Normal) H Microbiology Microbiology Date/Time Source Procedure Growth Status 09/17/25 20:10 Blood Blood Culture - Preliminary Resulted Labs and/or images reviewed: Labs reviewed by me, Image(s) reviewed by me Assessment/Plan Assessment/Plan Acute abdominal pain Acute small bowel obstruction: NPO: Consult by surgeon Dr. Kirby appreciated, small-bowel series shows no obstruction Acute dehydration: IV fluids Hypercholesterolemia History of DVT on Coumadin Nausea and vomiting: Zofran Compazine CHF exacerbation Possible community-acquired pneumonia Gram-positive versus Gram-negative: Rocephin azithromycin Time spent 50 minutes Advanced care planning time 20 minutes Patient is full code Clear liquid diet Ambulate PCP Dr Holland Patient lives alone Plan discussed with: Patient Date of Service: Sep 19, 2025 Billing Provider: BOLIVAR TORRES MD Common Visit Codes: [id number] INP/OBS CARE(HIGH) BOLIVAR TORRES MD Sep 19, 2025 11:09
[2025-09-19 12:07] LABS: Triglycerides 89.0 mg/dL (< 150)
[2025-09-19 12:08] LABS: Magnesium 2.4 mg/dL (1.6-2.6)
[2025-09-19 12:09] LABS: Cholesterol 146.0 mg/dL (< 200); HDL Cholesterol 46.0 mg/dL (40-59)
[2025-09-19] MEDS ORDERED: MECL12.586 PO (13:05)
[2025-09-19] MEDS: METOPROLOL TARTRATE 1MG/1ML-5ML VIAL IV ONE (13:19)
[2025-09-19] MEDS: AMIODARONE BOLUS KIT 100 ML IV ONE (13:27)
--- NOTE | 2025-09-19 18:23 | DVHINCON2 ---
Date of service: Sep 19, 2025 Referring Physician Rohit Reason for Consultation Tachycardia rate of 170 History of Present Illness This is a 69-year-old male with past medical history of hypertension, blood clot on Coumadin, CHF, hyperlipidemia, and chronic hernia presented to the ED with a complaint of abdominal pain. Patient reports he has been experiencing abdominal pain associated with nausea and vomiting. WBC 12.8, PLT 174, NA 141, K 3.8, BUN 15, REMARKETING MANAGER 1.15, GLUC 127, CA 9.7, BNP 89.59, TROP 3, total bilirubin 2.3, lipase 35, lactic acid 1.7. CT abdomen/pelvis revealed abdominal dilatation of small bowel loops with associated bowel wall thickening and luminal narrowing most pronounced in the lower abdomen which can be secondary to enteritis, small-bowel obstruction; 4 mm right lower lobe solid nodules; prostatomegaly. Chest x-ray shows possible developing airspace disease left base may represent pneumonia, may also be a small left pleural effusion. The patient developed tachycardia with a rate of 170 therefore I was asked to consult on this patient. Family History: Diabetes mellitus G8 FATHER G8 BROTHER Allergies: Coded Allergies: NO KNOWN ALLERGIES (Unverified , 07/10/17) Home Meds Active Scripts Magnesium Citrate (Onelax Magnesium Citrate) 1.745 Gm/30 Ml [place], 1.745 GM PO QID PRN for 10 Days, #120 ML Prov:TAN ORANTES MD 11/22/24 Bisacodyl (Dulcolax) 10 Mg Sup, 10 MG RE QID PRN for 10 Days, #30 SUPP Prov:TAN ORANTES MD 11/22/24 Polyethylene Glycol 3350 (Miralax) 17 Gm Pow, 17 GM PO BID for 60 Days, #120 POW Prov:TAN ORANTES MD 11/22/24 Reported Medications Meclizine Hcl (Meclizine Hcl) 12.5 Mg Tab, 12.5 MG PO, TAB 09/19/25 Benzonatate (Benzonatate) 100 Mg Cap, 1-2 CAP PO Q4HR, #60 CAP 09/19/25 Carvedilol (Carvedilol) 3.125 Mg Tab, 1 TAB PO DAILY, #60 TAB 3 Refills 09/19/25 Sacubitril-Valsartan (Entresto 24-26 mg) 1 Tab Tab, 1 TAB PO, TAB 09/19/25 Empagliflozin (Jardiance) 10 Mg Tab, 10 MG PO, TAB 09/19/25 Furosemide (Furosemide) 20 Mg Tab, 1 TAB PO DAILY, #90 TAB 1 Refill 09/19/25 Dupilumab (Dupixent) 300 Mg/2 Ml Inj, 300 MG SC, INJ 09/19/25 Magnesium Oxide (MAGNESIUM OXIDE) Unknown Strength Tab, PO DAILY 01/21/21 Cholecalciferol (VITAMIN D3) Unknown Strength Tab, PO DAILY 01/21/21 Zinc Sulfate (Zinc Sulfate) Unknown Strength Cap, PO DAILY 01/21/21 Albuterol Sulfate (VENTOLIN MDI) 90 Mcg Ih, 2 PUFF IN Q6HP 01/21/21 Atorvastatin Calcium (ATORVASTATIN CALCIUM) 40 Mg Tab, 1 TAB PO HS 01/21/21 Warfarin Sodium (Warfarin Sodium) 4 Mg Tab, 4 MG PO DAILY EXCEPT Sunday10/28/20 Current Medications Current Medications Medications (Trade) Dose Ordered Sig/Lobito Route PRN Reason Start Time Stop Time Status Last Admin Azithromycin 250 ml @ 125 mls/hr DAILY@2200 IV 09/18/25 22:00 09/18/25 21:38 Prochlorperazine Edisylate (Compazine Inj) 10 mg Q6HPRN PRN IV NAUSEA OR VOMITING 09/18/25 21:15 09/19/25 12:14 Amiodarone HCl 250 ml @ 16.66 mls/ hr Q15H1M IV 09/19/25 18:45 09/19/25 13:35 DC Amiodarone HCl 250 ml @ 16.66 mls/ hr Q15H1M IV 09/19/25 22:00 Atorvastatin Calcium (Lipitor) 40 mg HS PO 09/19/25 22:00 Furosemide (Lasix Tablet) 20 mg DAILY PO 09/19/25 10:00 09/19/25 10:00 Sacubitril/ Valsartan (Entresto 24-26 Mg tab) 0.5 tab BID PO 09/19/25 22:00 Carvedilol (Coreg Tablet) 3.125 mg Q12HR PO 09/19/25 22:00 Empaglifozin (Jardiance) 10 mg DAILY PO 09/20/25 10:00 Review of Systems Constitutional: Yes: Weakness; No: Fever, Chills, Sweats, Malaise, Other Eyes: No: Pain, Vision change, Conjunctivae inflammation, Eyelid inflammation, Other, Redness ENT: No: Ear pain, Ear discharge, Nose pain, Nose discharge, Nose congestion, Mouth pain, Mouth swelling, Throat pain, Throat swelling, Other Respiratory: No: Cough, Dry, Shortness of breath, SOB with excertion, Wheezing, Hemoptysis, Pleuritic Pain, Sputum, Wheezing, Other Cardiovascular: No: Chest Pain, Palpitations, Orthopnea, Paroxysmal Noc. Dyspnea, Edema, Lt Headedness, Other Gastrointestinal: Nausea, Vomiting, Abdominal Pain; No: Diarrhea, Constipation, Melena, Hematochezia, Other Genitourinary: No Dysuria, No Frequency, No Incontinence, No Hematuria, No Retention, No Other Musculoskeletal: No: other, neck pain, shoulder pain, arm pain, back pain, hand pain, leg pain, foot pain Skin: No: Rash, Lesions, Jaundice, Bruising, Other Neurological: No: Weakness, Numbness, Incoordination, Change in speech, Confusion, Seizures, Other Vital Signs Vital Signs Date Time Temp Pulse Resp B/P (MAP) Pulse Ox O2 Delivery O2 Flow Rate FiO2 09/19/25 13:19 134 141/65 09/19/25 13:00 97.8 17 89 97.8 09/19/25 08:00 Nasal Cannula* 2 28 Physical Exam GENERAL: Alert and oriented x 3. No acute distress. EYES: PERRL, EOMI. Anicteric. HENT: Moist mucous membranes. LUNGS: Clear to auscultation bilaterally. CARDIOVASCULAR: Regular rate and rhythm. ABDOMEN: Soft, nontender and nondistended. EXTREMITIES: No edema. NEUROLOGIC: No focal neurological deficits. SKIN: Warm, dry. Labs/Diagnostic Data Labs Test 09/19/25 06:41 09/18/25 05:56 09/17/25 22:17 09/17/25 17:42 Range/Units White Blood Count 10.6 # 4.4-10.8 10^3/uL Red Blood Count 5.67 4.5-5.90 10^6/uL Hemoglobin 16.5 13.5-17.5 g/dL Hematocrit 49.3 41.0-53.0 % Mean Corpuscular Volume 86.9 80.0-100.0 fL Mean Corpuscular Hemoglobin 29.0 28.0-32.0 pg Mean Corpuscular Hemoglobin Concent 33.4 32.0-36.0 g/dL Red Cell Distribution Width 17.3 H 11.8-14.3 % Platelet Count 174 140-450 10^3/uL Mean Platelet Volume 8.4 6.9-10.8 fL Neutrophils (%) (Auto) 84.7 H 37.0-80.0 % Lymphocytes (%) (Auto) 8.8 L 10.0-50.0 % Monocytes (%) (Auto) 6.3 0.0-12.0 % Eosinophils (%) (Auto) 0.0 0.0-7.0 % Basophils (%) (Auto) 0.2 0.0-2.0 % Neutrophils # (Auto) 9.0 H 1.6-8.6 10 ^3/uL Lymphocytes # (Auto) 0.9 0.4-5.4 10 ^3/uL Monocytes # (Auto) 0.7 0-1.3 10 ^3/uL Eosinophils # (Auto) 0 0-0.8 10 ^3/uL Basophils # (Auto) 0 0-0.2 10 ^3/uL Nucleated Red Blood Cells 0.1 % Prothrombin Time 30.8 H 9.3-11.8 sec Prothrombin Time INR 3.27 H 0.9-1.15 Activated Partial Thromboplast Time 45.8 H 24.5-34.5 SEC Creatinine 1.47 H 0.700-1.30 mg/dL Glomerular Filtration Rate Calc 51 >90 mL/min Magnesium Level 2.4 1.6-2.6 mg/dL Albumin 4.4 3.2-4.8 g/dL Triglycerides Level 89 < 150 mg/dL Cholesterol Level 146 < 200 mg/dL LDL Cholesterol 83 < 100 mg/dL HDL Cholesterol 46 40-59 mg/dL Thyroid Stimulating Hormone (TSH) 2.86 0.55-4.78 uIU/mL Sodium Level 142 136-145 mmol/L Potassium Level 4.2 3.5-5.1 mmol/L Chloride Level 106 98-107 mmol/L Carbon Dioxide Level 22 20-31 mmol/L Anion Gap 14 5-15 Blood Urea Nitrogen 21 9-23 mg/dL BUN/Creatinine Ratio 15.3 10.0-20.0 Serum Glucose 167 H 74-106 mg/dL Calcium Level 9.4 8.7-10.4 mg/dL Total Bilirubin 4.0 H 0.2-1.0 mg/dL Aspartate Amino Transferase (AST) 15 13-40 U/L Alanine Aminotransferase (ALT) 16 7-40 U/L Alkaline Phosphatase 100 46-116 U/L Total Protein 7.4 5.7-8.2 g/dL Urine Color Yellow Yellow Urine Clarity Clear Clear Urine pH 5.5 5.0-9.0 Urine Specific [place] 1.039 H 1.001-1.035 Urine Protein Negative Negative Urine Ketones 1+ H Negative Urine Blood Negative Negative /uL Urine Nitrite Negative Negative Urine Bilirubin Negative Negative Urine Urobilinogen Normal Negative mg/dL Urine Leukocyte Esterase Negative Negative /uL Urine RBC 2 0 - 3 /hpf Urine Microscopic WBC 2 0-3 /HPF Urine Squamous Epithelial Cells None seen <5 /hpf Urine Bacteria None seen None Seen /hpf Urine Glucose 4+ H Normal mg/dL Troponin I High Sensitivity 3 L </=54 ng/L Test 09/17/25 16:42 Range/Units Lactic Acid Level 1.7 0.4-2.0 mmol/L B-Type Natriuretic Peptide 89.59 0-100 pg/mL Lipase 35 12-53 U/L Microbiology Date/Time Source Procedure Growth Status 09/17/25 20:10 Blood Blood Culture - Preliminary Resulted Assessment Acute abdominal pain. Acute small bowel obstruction. Acute dehydration. Hypercholesterolemia. History of DVT on Coumadin. Nausea and vomiting. CHF exacerbation. Community-acquired pneumonia. Tachycardia. Plan/Recommendation I agree with your ongoing assessment and care of plan. Morphine and [place] for pain management. IV Amiodarone. Lipitor. IV antibiotics as ordered. Coreg. Diuretics with Lasix. IV Labetalol for SBP > 150. Nitro SL. Entresto. Additional plan as per the hospital course. A total of 45 minutes was spent reviewing the patient record, examining the patient, making a diagnostic and therapeutic plan, discussing this plan with medical personnel, following up on diagnostic studies and following the patient for clinical stability excluding any and all procedures. At least 50% of this time was spent in direct, [id number] contact. Plan discussed with: Patient MARGARET BORDEN MD Sep 19, 2025 16:34
[2025-09-19] MEDS: CARVEDILOL 3.125 MG TAB PO SCH (21:54)
[2025-09-19] MEDS: SACUBITRIL-VALSARTAN 24mg/26mg TAB PO SCH (21:55)
[2025-09-19] MEDS: ATORVASTATIN 20 MG TAB PO SCH (21:56)
[2025-09-20] VITALS (14 sets, daily range): BP systolic 103–155; BP diastolic 60–96; PULSE 89–160; RESP 18–28; TEMP 97.1–98.4; O2SAT 90–95
[2025-09-20 06:44] LABS: Hematocrit 48.5 % (41.0-53.0); Hemoglobin 16.3 g/dL (13.5-17.5); Mean Corpuscular Hemoglobin 29.3 pg (28.0-32.0); Mean Corpuscular Volume 87.2 fL (80.0-100.0); Nucleated Red Blood Cells % 0.1 %
[2025-09-20 06:58] LABS: Partial Thromboplastin Time 46.2 SEC (24.5-34.5); Prothrombin Time 53.1 sec (9.3-11.8)
[2025-09-20 07:08] LABS: INR 5.98 (0.9-1.15)
[2025-09-20] MEDS: GASTROGRAFIN 120 ML SOL ONE (07:58)
[2025-09-20] MEDS: AMIODARONE HCL 200 MG TAB PO SCH (09:51)
[2025-09-20] MEDS: EMPAGLIFLOZIN 10 MG TAB PO SCH (09:52)
--- NOTE | 2025-09-20 10:01 | ECG ---
[facility] Test Date: 2025-09-19 Test Time: 11:35:50 Pat Name: SANTINO PAZ Department: Room: [facility]24[facility] Gender: M Stage Producer: TEMITOPE : [id number] Requested By: TONIE HERNANDEZ Order Number: [id number] Reading MD: Bladimir Rodriguez Measurements Intervals [place] Rate: 140 P: 0 VA: 0 QRS: -62 QRSD: 148 T: 95 QT: 367 QTc: 560 Interpretive Statements Atrial fibrillation Left bundle branch block Electronically Signed On 09-21-2025 15:29:25 PDT by Bladimir Rodriguez Please click the below link to view image of tracing.
[2025-09-20] MEDS ORDERED: PROMETHAZINE HCL 25 MG RECT SUPP PR PRN (10:55)
--- NOTE | 2025-09-20 11:22 | DVHPN2 ---
Reviewed: Care Plan, H&P, Labs, Medications, Previous Orders, Radiology Changes from previous H/P or p: No Changes Eyes: No Pain, No Vision change, No Conjunctivae inflammation, No Eyelid inflammation, No Other, No Redness ENT: No Ear pain, No Ear discharge, No Nose pain, No Nose discharge, No Nose congestion, No Mouth pain, No Mouth swelling, No Throat pain, No Throat swelling, No Other Cardiovascular: No Chest Pain, No Palpitations, No Orthopnea, No Paroxysmal Noc. Dyspnea, No Edema, No Lt Headedness, No Other Respiratory: No Cough, No Dry, No Shortness of breath, No SOB with excertion, No Wheezing, No Hemoptysis, No Pleuritic Pain, No Sputum, No Other Gastrointestinal: Nausea, Vomiting, Abdominal Pain; No Diarrhea, No Constipation, No Melena, No Hematochezia, No Other Genitourinary: No Dysuria, No Frequency, No Incontinence, No Hematuria, No Retention, No Other Musculoskeletal: No other, No neck pain, No shoulder pain, No arm pain, No back pain, No hand pain, No leg pain, No foot pain Skin: No Rash, No Lesions, No Jaundice, No Bruising, No Other Objective Vitals Vital Signs Date Time Temp Pulse Resp B/P (MAP) Pulse Ox O2 Delivery O2 Flow Rate FiO2 09/20/25 09:52 91 160/92 09/20/25 09:00 97.1 20 91 97.1 09/19/25 20:00 Nasal Cannula* 2 28 Intake/Output Intake and Output 09/20/25 07:00 Intake Total 1200 ml Output Total 1250 ml Balance -50 ml Intake Oral 550 ml IV Total 650 ml Output Urine Total 1250 ml # Voids 4 Medications Current Medications Medications Dose Ordered Sig/Lobito Route Start Time Stop Time Status Last Admin Dose Admin Metronidazole 100 ml @ 100 mls/hr Q8HR IV 09/18/25 06:00 09/20/25 05:53 100 MLS/HR Labetalol HCl 5 mg Q2HPRN PRN IV 09/17/25 22:00 Sodium Chloride 1,000 ml @ 60 mls/hr [id number] IV 09/17/25 22:00 09/19/25 06:23 60 MLS/HR Acetaminophen/ Hydrocodone Bitart 1 tab Q4HP PRN PO 09/17/25 22:00 Ondansetron HCl 4 mg Q4HP PRN IV 09/17/25 22:00 09/20/25 09:18 4 MG Acetaminophen 650 mg Q6HP PRN PO 09/17/25 22:00 Morphine Sulfate 2 mg Q4HPRN PRN IV 09/17/25 22:00 09/19/25 02:12 2 MG Nitroglycerin 0.4 mg Q5MINP PRN SL 09/17/25 22:00 Morphine Sulfate 2 mg Q30M PRN IV 09/17/25 22:00 Azithromycin 250 ml @ 125 mls/hr DAILY@2200 IV 09/18/25 22:00 09/19/25 22:02 125 MLS/HR Warfarin Sodium RX PROTOCOL PER PHARMACY PO 09/18/25 01:30 Prochlorperazine Edisylate 10 mg Q6HPRN PRN IV 09/18/25 21:15 09/20/25 04:08 10 MG Atorvastatin Calcium 40 mg HS PO 09/19/25 22:00 09/19/25 21:56 40 MG Furosemide 20 mg DAILY PO 09/19/25 10:00 09/20/25 09:52 20 MG Sacubitril/ Valsartan 0.5 tab BID PO 09/19/25 22:00 09/20/25 09:51 0.5 TAB Carvedilol 3.125 mg Q12HR PO 09/19/25 22:00 09/20/25 09:52 3.125 MG Empaglifozin 10 mg DAILY PO 09/20/25 10:00 09/20/25 09:52 10 MG Amiodarone HCl 400 mg Q12HR PO 09/20/25 10:00 09/20/25 09:51 400 MG Promethazine HCl 25 mg Q6HPRN PRN PA 09/20/25 10:55 Laboratory Results Laboratory Tests 09/18/25 05:56 09/20/25 05:22 Coagulation Test 09/20/25 05:22 Prothrombin Time 53.1 sec (9.3-11.8) H Prothrombin Time INR 5.98 (0.9-1.15) *H Activated Partial Thromboplast Time 46.2 SEC (24.5-34.5) H Urinalysis Test 09/17/25 22:17 Urine Color Yellow (Yellow) Urine Clarity Clear (Clear) Urine pH 5.5 (5.0-9.0) Urine Specific [place] 1.039 (1.001-1.035) Urine Protein Negative (Negative) Urine Ketones 1+ (Negative) H Urine Blood Negative /uL (Negative) Urine Nitrite Negative (Negative) Urine Bilirubin Negative (Negative) Urine Urobilinogen Normal mg/dL (Negative) Urine Leukocyte Esterase Negative /uL (Negative) Urine RBC 2 /hpf (0 - 3) Urine Microscopic WBC 2 /HPF (0-3) Urine Squamous Epithelial Cells None seen /hpf (<5) Urine Bacteria None seen /hpf (None Seen) Urine Glucose 4+ mg/dL (Normal) H Microbiology Microbiology Date/Time Source Procedure Growth Status 09/17/25 20:10 Blood Blood Culture - Final Complete Labs and/or images reviewed: Labs reviewed by me, Image(s) reviewed by me Assessment/Plan Assessment/Plan Acute abdominal pain Acute small bowel obstruction: NPO: Consult by surgeon Dr. Mirta rodriguez, small-bowel series shows no obstruction Acute dehydration: IV fluids Hypercholesterolemia History of DVT on Coumadin ; patient has bloody emesis, hold Coumadin Nausea and vomiting: Zofran Compazine CHF exacerbation Possible community-acquired pneumonia Gram-positive versus Gram-negative: Rocephin azithromycin Time spent 50 minutes Advanced care planning time 20 minutes Patient is full code Clear liquid diet Ambulate PCP Dr Holland Patient lives alone Son Ronen Guzman who lives in [place] [phone] at bedside Pts girl friend Adry # is in the system Plan discussed with: Patient My Orders Orders - BOLIVAR TORRES MD Procedure Category Date Status Time * Cardiology Consult CONS 09/19/25 Transmitted 12:21 Npo (Nothing By DIET 09/20/25 Transmitted Mouth) Diet Lunch * [facility] Academic Advisement Director CONS 09/20/25 Transmitted 10:01 Promethazine Supp PHA 09/20/25 In Process (Phenergan Rectal Supp 10:55 Date of Service: Sep 20, 2025 Billing Provider: BOLIVAR TORRES MD Common Visit Codes: [id number] CARE 30-74 MIN BOLIVAR TORRES MD Sep 20, 2025 11:22
--- NOTE | 2025-09-20 12:19 | DVHPN2 ---
Progress Note - Dictate Date Seen: Sep 20, 2025 Medical Necessity Reason Pt with a Central, PICC or Fol: No Subjective E: emesis this am. c/o nausea. vital signs Vital Sign Date Time Temp Pulse Resp B/P (MAP) Pulse Ox O2 Delivery O2 Flow Rate FiO2 09/20/25 09:52 91 160/92 09/20/25 09:00 97.1 20 91 97.1 09/20/25 08:00 Nasal Cannula* 2 28 Total Intake and Output 09/19/25 09/19/25 09/20/25 15:00 23:00 07:00 Intake Total 100 ml 600 ml 500 ml Output Total 600 ml 650 ml Balance 100 ml 0 ml -150 ml medications Current Medications Medications Dose Ordered Sig/Lobito Route Start Time Stop Time Status Last Admin Dose Admin Metronidazole 100 ml @ 100 mls/hr Q8HR IV 09/18/25 06:00 09/20/25 05:53 100 MLS/HR Labetalol HCl 5 mg Q2HPRN PRN IV 09/17/25 22:00 Sodium Chloride 1,000 ml @ 60 mls/hr [id number] IV 09/17/25 22:00 09/19/25 06:23 60 MLS/HR Acetaminophen/ Hydrocodone Bitart 1 tab Q4HP PRN PO 09/17/25 22:00 Ondansetron HCl 4 mg Q4HP PRN IV 09/17/25 22:00 09/20/25 09:18 4 MG Acetaminophen 650 mg Q6HP PRN PO 09/17/25 22:00 Morphine Sulfate 2 mg Q4HPRN PRN IV 09/17/25 22:00 09/19/25 02:12 2 MG Nitroglycerin 0.4 mg Q5MINP PRN SL 09/17/25 22:00 Morphine Sulfate 2 mg Q30M PRN IV 09/17/25 22:00 Azithromycin 250 ml @ 125 mls/hr DAILY@2200 IV 09/18/25 22:00 09/19/25 22:02 125 MLS/HR Warfarin Sodium RX PROTOCOL PER PHARMACY PO 09/18/25 01:30 Atorvastatin Calcium 40 mg HS PO 09/19/25 22:00 09/19/25 21:56 40 MG Furosemide 20 mg DAILY PO 09/19/25 10:00 09/20/25 09:52 20 MG Sacubitril/ Valsartan 0.5 tab BID PO 09/19/25 22:00 09/20/25 09:51 0.5 TAB Carvedilol 3.125 mg Q12HR PO 09/19/25 22:00 09/20/25 09:52 3.125 MG Empaglifozin 10 mg DAILY PO 09/20/25 10:00 09/20/25 09:52 10 MG Amiodarone HCl 400 mg Q12HR PO 09/20/25 10:00 09/20/25 09:51 400 MG Lactated Ringer's 1,000 ml @ 100 mls/hr Q10H IV 09/20/25 11:30 Promethazine HCl 25 mg Q6HP PRN PO 09/20/25 11:45 objective GEN: NAD ABD: soft. NT. very min distended. laboratory and microbiology Laboratory Tests 09/20/25 05:22 09/18/25 05:56 Test 09/18/25 05:56 Range/Units Serum Glucose 167 H 74-106 mg/dL Assessment/Plan A: 1. poss gastric outlet obstruction? P: 1. KUB 2. GI consult pending. Dietary Evaluation Review Comments: 1) Advance to cardiac diet when medically feasible 2) Collect HbA1c d/t elevated BG levels 3) Refer to outpatient RD for weight management 4) Follow-up with gastroenterology and cardiology 5) Continue to monitor I&O, labs, and skin integrity Expected Outcomes/Goals: 1) appetite and labs to improve 2) diet to advance 3) gradual wt loss 4) f/u in 3-5 days Plan discussed with: Patient SAM BARNARD MD Sep 20, 2025 12:19
[2025-09-20] MEDS: PROMETHAZINE HCL 6.25 MG/5 ML ORAL SYRUP PO PRN (12:40)
[2025-09-20] MEDS: PHYTONADIONE (VIT K)10 MG/ML 1ML VIAL SUBCUT ONE (12:40)
[2025-09-20] MEDS: LACTATED RINGER'S 1,000 ML IV SCH (12:41)
--- NOTE | 2025-09-20 12:57 | DVH ---
Date: 09/20/2025 12:04 PM Examination: XY KUB ABDOMEN SINGLE VIEW History: N/V Comparison: None TECHNIQUE: Frontal views of the abdomen was obtained. (3 images received.) FINDINGS: Bowel gas pattern is unremarkable. The lung bases are unremarkable. No acute osseous abnormality identified. IMPRESSION: 1. Distended small bowel gas-filled and measures 4-5 cm. 2. Oral contrast noted throughout colon from the cecum to the rectum. 3. Findings may represent partial small bowel obstruction or small bowel obstruction with interim abd ominal surgery and residual contrast in the colon. 4. Correlate with the clinical setting.
--- NOTE | 2025-09-20 15:44 | DVHINCON2 ---
Date of service: Sep 20, 2025 Referring Physician Rohit Reason for Consultation Bowel obstruction Abdominal pain Nausea and vomiting History of Present Illness The patient is a 69-year-old male with a past medical history significant for hypertension, hyperlipidemia, history of DVT, history of chronic hernia, history of CHF, history of prior bowel resection for gangrene, admitted with nausea and vomiting. Patient's last bowel movement was several days ago. He is not passing gas or stools. He complains of numerous nonbloody emesis. Patient had imaging showing dilation of the small bowel but no evidence of obstruction as contrast flowed into the small bowel and into the colon and into the rectum. He continues to have some abdominal distention and nausea and vomiting despite not appearing to have an obstruction. GI consultation was obtained for further evaluation. Patient has had numerous episodes of emesis which were nonbloody and hemoglobin has remained at 16. Patient states that he has had prior abdominal surgery for gangrene. Surgery has evaluated the patient consented the patient not to be surgical candidate at this time. Past Medical History As above Past Surgical History Shoulder bilateral Hernia Pacemaker History of bowel resection for ischemia Family History: Diabetes mellitus G8 FATHER G8 BROTHER Allergies: Coded Allergies: NO KNOWN ALLERGIES (Unverified , 07/10/17) Home Meds Active Scripts Magnesium Citrate (Onelax Magnesium Citrate) 1.745 Gm/30 Ml [place], 1.745 GM PO QID PRN for 10 Days, #120 ML Prov:TAN ORANTES MD 11/22/24 Bisacodyl (Dulcolax) 10 Mg Sup, 10 MG RE QID PRN for 10 Days, #30 SUPP Prov:TAN ORANTES MD 11/22/24 Polyethylene Glycol 3350 (Miralax) 17 Gm Pow, 17 GM PO BID for 60 Days, #120 POW Prov:TAN ORANTES MD 11/22/24 Reported Medications Meclizine Hcl (Meclizine Hcl) 12.5 Mg Tab, 12.5 MG PO, TAB 09/19/25 Benzonatate (Benzonatate) 100 Mg Cap, 1-2 CAP PO Q4HR, #60 CAP 09/19/25 Carvedilol (Carvedilol) 3.125 Mg Tab, 1 TAB PO DAILY, #60 TAB 3 Refills 09/19/25 Sacubitril-Valsartan (Entresto 24-26 mg) 1 Tab Tab, 1 TAB PO, TAB 09/19/25 Empagliflozin (Jardiance) 10 Mg Tab, 10 MG PO, TAB 09/19/25 Furosemide (Furosemide) 20 Mg Tab, 1 TAB PO DAILY, #90 TAB 1 Refill 09/19/25 Dupilumab (Dupixent) 300 Mg/2 Ml Inj, 300 MG SC, INJ 09/19/25 Magnesium Oxide (MAGNESIUM OXIDE) Unknown Strength Tab, PO DAILY 01/21/21 Cholecalciferol (VITAMIN D3) Unknown Strength Tab, PO DAILY 01/21/21 Zinc Sulfate (Zinc Sulfate) Unknown Strength Cap, PO DAILY 01/21/21 Albuterol Sulfate (VENTOLIN MDI) 90 Mcg Ih, 2 PUFF IN Q6HP 01/21/21 Atorvastatin Calcium (ATORVASTATIN CALCIUM) 40 Mg Tab, 1 TAB PO HS 01/21/21 Warfarin Sodium (Warfarin Sodium) 4 Mg Tab, 4 MG PO DAILY EXCEPT Sunday10/28/20 Current Medications Current Medications Medications (Trade) Dose Ordered Sig/Lobito Route PRN Reason Start Time Stop Time Status Last Admin Amiodarone HCl 250 ml @ 16.66 mls/ hr Q15H1M IV 09/19/25 18:45 09/19/25 13:35 DC Amiodarone HCl 250 ml @ 16.66 mls/ hr Q15H1M IV 09/19/25 22:00 09/20/25 06:55 DC 09/19/25 22:11 Atorvastatin Calcium (Lipitor) 40 mg HS PO 09/19/25 22:00 09/19/25 21:56 Sacubitril/ Valsartan (Entresto 24-26 Mg tab) 0.5 tab BID PO 09/19/25 22:00 09/20/25 09:51 Carvedilol (Coreg Tablet) 3.125 mg Q12HR PO 09/19/25 22:00 09/20/25 09:52 Empaglifozin (Jardiance) 10 mg DAILY PO 09/20/25 10:00 09/20/25 09:52 Amiodarone HCl (Cordarone Tablet) 400 mg Q12HR PO 09/20/25 10:00 09/20/25 09:51 Promethazine HCl (Phenergan Rectal Supp) 25 mg Q6HPRN PRN MN NAUSEA / VOMITING 09/20/25 10:55 09/20/25 11:47 DC Lactated Ringer's 1,000 ml @ 100 mls/hr Q10H IV 09/20/25 11:30 09/20/25 12:41 Promethazine HCl (Phenergan Plain Syrup) 25 mg Q6HP PRN PO NAUSEA / VOMITING 09/20/25 11:45 09/20/25 12:40 Review of Systems Review of systems as per HPI Vital Signs Vital Signs Date Time Temp Pulse Resp B/P (MAP) Pulse Ox O2 Delivery O2 Flow Rate FiO2 09/20/25 13:00 97.6 103 20 143/91 (108) 95 97.6 09/20/25 08:00 Nasal Cannula* 2 28 Physical Exam General: Well-developed well-nourished HEENT: NC/AT EOMI PERRLA O/P clear, no JVD or cervical lymphadenopathy, no scleral icterus Heart: Regular rate and rhythm, no murmurs rubs or gallops Lungs: Clear to auscultation bilaterally, no wheezes rales or rhonchi Abdomen: Soft, distended abdomen mild tenderness to palpation Extremity: No clubbing cyanosis or edema, no rashes or bruises Neuro: Cranial nerves 2-12 grossly intact, moves all four extremities, no asterixis Labs/Diagnostic Data Labs Test 09/20/25 05:22 09/19/25 06:41 09/18/25 05:56 09/17/25 22:17 Range/Units White Blood Count 10.0 4.4-10.8 10^3/uL Red Blood Count 5.56 4.5-5.90 10^6/uL Hemoglobin 16.3 13.5-17.5 g/dL Hematocrit 48.5 41.0-53.0 % Mean Corpuscular Volume 87.2 80.0-100.0 fL Mean Corpuscular Hemoglobin 29.3 28.0-32.0 pg Mean Corpuscular Hemoglobin Concent 33.6 32.0-36.0 g/dL Red Cell Distribution Width 16.8 H 11.8-14.3 % Platelet Count 162 140-450 10^3/uL Mean Platelet Volume 8.6 6.9-10.8 fL Neutrophils (%) (Auto) 80.1 H 37.0-80.0 % Lymphocytes (%) (Auto) 7.3 L 10.0-50.0 % Monocytes (%) (Auto) 12.1 H 0.0-12.0 % Eosinophils (%) (Auto) 0.2 0.0-7.0 % Basophils (%) (Auto) 0.3 0.0-2.0 % Neutrophils # (Auto) 8.0 1.6-8.6 10 ^3/uL Lymphocytes # (Auto) 0.7 0.4-5.4 10 ^3/uL Monocytes # (Auto) 1.2 0-1.3 10 ^3/uL Eosinophils # (Auto) 0 0-0.8 10 ^3/uL Basophils # (Auto) 0 0-0.2 10 ^3/uL Nucleated Red Blood Cells 0.1 % Prothrombin Time 53.1 H 9.3-11.8 sec Prothrombin Time INR 5.98 *H 0.9-1.15 Activated Partial Thromboplast Time 46.2 H 24.5-34.5 SEC Creatinine 1.36 H 0.700-1.30 mg/dL Glomerular Filtration Rate Calc 56 >90 mL/min Magnesium Level 2.4 1.6-2.6 mg/dL Albumin 4.4 3.2-4.8 g/dL Triglycerides Level 89 < 150 mg/dL Cholesterol Level 146 < 200 mg/dL LDL Cholesterol 83 < 100 mg/dL HDL Cholesterol 46 40-59 mg/dL Thyroid Stimulating Hormone (TSH) 2.86 0.55-4.78 uIU/mL Sodium Level 142 136-145 mmol/L Potassium Level 4.2 3.5-5.1 mmol/L Chloride Level 106 98-107 mmol/L Carbon Dioxide Level 22 20-31 mmol/L Anion Gap 14 5-15 Blood Urea Nitrogen 21 9-23 mg/dL BUN/Creatinine Ratio 15.3 10.0-20.0 Serum Glucose 167 H 74-106 mg/dL Calcium Level 9.4 8.7-10.4 mg/dL Total Bilirubin 4.0 H 0.2-1.0 mg/dL Aspartate Amino Transferase (AST) 15 13-40 U/L Alanine Aminotransferase (ALT) 16 7-40 U/L Alkaline Phosphatase 100 46-116 U/L Total Protein 7.4 5.7-8.2 g/dL Urine Color Yellow Yellow Urine Clarity Clear Clear Urine pH 5.5 5.0-9.0 Urine Specific [place] 1.039 H 1.001-1.035 Urine Protein Negative Negative Urine Ketones 1+ H Negative Urine Blood Negative Negative /uL Urine Nitrite Negative Negative Urine Bilirubin Negative Negative Urine Urobilinogen Normal Negative mg/dL Urine Leukocyte Esterase Negative Negative /uL Urine RBC 2 0 - 3 /hpf Urine Microscopic WBC 2 0-3 /HPF Urine Squamous Epithelial Cells None seen <5 /hpf Urine Bacteria None seen None Seen /hpf Urine Glucose 4+ H Normal mg/dL Test 09/17/25 17:42 09/17/25 16:42 Range/Units Troponin I High Sensitivity 3 L </=54 ng/L Lactic Acid Level 1.7 0.4-2.0 mmol/L B-Type Natriuretic Peptide 89.59 0-100 pg/mL Lipase 35 12-53 U/L Microbiology Date/Time Source Procedure Growth Status 09/17/25 20:10 Blood Blood Culture - Final Complete Assessment Nausea and vomiting Partial small-bowel obstruction History of ischemic bowel? Leukocytosis Community-acquired pneumonia Findings consistent with partial small bowel obstruction versus ileus versus enteritis versus other Problems(with codes): (1) Hernia (2) SBO (small bowel obstruction) (3) Abnormal finding on CT scan (4) Intractable abdominal pain (5) Leukocytosis, unspecified (6) Pneumonia, unspecified organism (7) Intractable nausea and vomiting Plan/Recommendation 1. No indication for EGD format or colonoscopy at this time 2. Antiemetics 3. Keep the patient NPO 4. Consider repeat imaging for evaluation for partial small-bowel obstruction, or ischemia 5. Supportive care, IV fluids and antibiotics 6. I will be signing off to Dr. Pat Plan discussed with: Patient MERCY MCCORMACK MD Sep 20, 2025 15:44
[2025-09-20] MEDS ORDERED: AMIODARONE BOLUS KIT 100 ML IV ONE (16:30)
[2025-09-20] MEDS: AMIODARONE BOLUS KIT 100 ML IV ONE ×2 (16:30→17:17)
--- NOTE | 2025-09-20 16:46 | DVHINCON2 ---
Date of service: Sep 18, 2025 History of Present Illness 69-year-old male with prior history of bowel resection for ischemic bowel admitted secondary to abdominal distention, pain and nausea and vomiting. Past Medical History Hypertension. History of DVT. CHF. Past Surgical History Pacemaker placement. Bowel resection. Shoulder surgery. Hernia repair. Family History: Diabetes mellitus G8 FATHER G8 BROTHER Family History Noncontributory Allergies: Coded Allergies: NO KNOWN ALLERGIES (Unverified , 07/10/17) Home Meds Active Scripts Magnesium Citrate (Onelax Magnesium Citrate) 1.745 Gm/30 Ml [place], 1.745 GM PO QID PRN for 10 Days, #120 ML Prov:TAN ORANTES MD 11/22/24 Bisacodyl (Dulcolax) 10 Mg Sup, 10 MG RE QID PRN for 10 Days, #30 SUPP Prov:TAN ORANTES MD 11/22/24 Polyethylene Glycol 3350 (Miralax) 17 Gm Pow, 17 GM PO BID for 60 Days, #120 POW Prov:TAN ORANTES MD 11/22/24 Reported Medications Meclizine Hcl (Meclizine Hcl) 12.5 Mg Tab, 12.5 MG PO, TAB 09/19/25 Benzonatate (Benzonatate) 100 Mg Cap, 1-2 CAP PO Q4HR, #60 CAP 09/19/25 Carvedilol (Carvedilol) 3.125 Mg Tab, 1 TAB PO DAILY, #60 TAB 3 Refills 09/19/25 Sacubitril-Valsartan (Entresto 24-26 mg) 1 Tab Tab, 1 TAB PO, TAB 09/19/25 Empagliflozin (Jardiance) 10 Mg Tab, 10 MG PO, TAB 09/19/25 Furosemide (Furosemide) 20 Mg Tab, 1 TAB PO DAILY, #90 TAB 1 Refill 09/19/25 Dupilumab (Dupixent) 300 Mg/2 Ml Inj, 300 MG SC, INJ 09/19/25 Magnesium Oxide (MAGNESIUM OXIDE) Unknown Strength Tab, PO DAILY 01/21/21 Cholecalciferol (VITAMIN D3) Unknown Strength Tab, PO DAILY 01/21/21 Zinc Sulfate (Zinc Sulfate) Unknown Strength Cap, PO DAILY 01/21/21 Albuterol Sulfate (VENTOLIN MDI) 90 Mcg Ih, 2 PUFF IN Q6HP 01/21/21 Atorvastatin Calcium (ATORVASTATIN CALCIUM) 40 Mg Tab, 1 TAB PO HS 01/21/21 Warfarin Sodium (Warfarin Sodium) 4 Mg Tab, 4 MG PO DAILY EXCEPT Sunday10/28/20 Current Medications Current Medications Medications (Trade) Dose Ordered Sig/Lobito Route PRN Reason Start Time Stop Time Status Last Admin Amiodarone HCl 250 ml @ 16.66 mls/ hr Q15H1M IV 09/19/25 18:45 09/19/25 13:35 DC Amiodarone HCl 250 ml @ 16.66 mls/ hr Q15H1M IV 09/19/25 22:00 09/20/25 06:55 DC 09/19/25 22:11 Atorvastatin Calcium (Lipitor) 40 mg HS PO 09/19/25 22:00 09/19/25 21:56 Sacubitril/ Valsartan (Entresto 24-26 Mg tab) 0.5 tab BID PO 09/19/25 22:00 09/20/25 09:51 Carvedilol (Coreg Tablet) 3.125 mg Q12HR PO 09/19/25 22:00 09/20/25 09:52 Empaglifozin (Jardiance) 10 mg DAILY PO 09/20/25 10:00 09/20/25 09:52 Amiodarone HCl (Cordarone Tablet) 400 mg Q12HR PO 09/20/25 10:00 09/20/25 09:51 Promethazine HCl (Phenergan Rectal Supp) 25 mg Q6HPRN PRN ME NAUSEA / VOMITING 09/20/25 10:55 09/20/25 11:47 DC Lactated Ringer's 1,000 ml @ 100 mls/hr Q10H IV 09/20/25 11:30 09/20/25 12:41 Promethazine HCl (Phenergan Plain Syrup) 25 mg Q6HP PRN PO NAUSEA / VOMITING 09/20/25 11:45 09/20/25 12:40 Amiodarone HCl 250 ml @ 16.66 mls/ hr Q15H1M IV 09/20/25 22:30 UNV Vital Signs Vital Signs Date Time Temp Pulse Resp B/P (MAP) Pulse Ox O2 Delivery O2 Flow Rate FiO2 09/20/25 13:00 97.6 103 20 143/91 (108) 95 97.6 09/20/25 08:00 Nasal Cannula* 2 28 Physical Exam GEN: Age-appropriate male in no acute distress. Alert. HEENT: Normocephalic atraumatic. Moist mucous membranes. Anicteric sclerae. CV: RRR RESP: Coarse breath sounds ABD: Soft. Minimal distention. Nontender. CT ABD/PELVIS: Abnormal dilatation of small bowel loops with associated bowel wall thickening and luminal narrowing most pronounced in the lower abdomen as described above which can be secondary to enteritis, small bowel obstruction. Recommend surgical consultation for further evaluation. Cholelithiasis. Trace free pelvic fluid. 4 mm right lower lobe solid nodule. Recommend follow-up per Fleischner society criteria. Sclerotic changes bilateral femoral heads suggestive of avascular necrosis. Prostatomegaly. Correlate with PSA levels Labs/Diagnostic Data Labs Test 09/20/25 05:22 09/19/25 06:41 09/18/25 05:56 09/17/25 22:17 Range/Units White Blood Count 10.0 4.4-10.8 10^3/uL Red Blood Count 5.56 4.5-5.90 10^6/uL Hemoglobin 16.3 13.5-17.5 g/dL Hematocrit 48.5 41.0-53.0 % Mean Corpuscular Volume 87.2 80.0-100.0 fL Mean Corpuscular Hemoglobin 29.3 28.0-32.0 pg Mean Corpuscular Hemoglobin Concent 33.6 32.0-36.0 g/dL Red Cell Distribution Width 16.8 H 11.8-14.3 % Platelet Count 162 140-450 10^3/uL Mean Platelet Volume 8.6 6.9-10.8 fL Neutrophils (%) (Auto) 80.1 H 37.0-80.0 % Lymphocytes (%) (Auto) 7.3 L 10.0-50.0 % Monocytes (%) (Auto) 12.1 H 0.0-12.0 % Eosinophils (%) (Auto) 0.2 0.0-7.0 % Basophils (%) (Auto) 0.3 0.0-2.0 % Neutrophils # (Auto) 8.0 1.6-8.6 10 ^3/uL Lymphocytes # (Auto) 0.7 0.4-5.4 10 ^3/uL Monocytes # (Auto) 1.2 0-1.3 10 ^3/uL Eosinophils # (Auto) 0 0-0.8 10 ^3/uL Basophils # (Auto) 0 0-0.2 10 ^3/uL Nucleated Red Blood Cells 0.1 % Prothrombin Time 53.1 H 9.3-11.8 sec Prothrombin Time INR 5.98 *H 0.9-1.15 Activated Partial Thromboplast Time 46.2 H 24.5-34.5 SEC Creatinine 1.36 H 0.700-1.30 mg/dL Glomerular Filtration Rate Calc 56 >90 mL/min Magnesium Level 2.4 1.6-2.6 mg/dL Albumin 4.4 3.2-4.8 g/dL Triglycerides Level 89 < 150 mg/dL Cholesterol Level 146 < 200 mg/dL LDL Cholesterol 83 < 100 mg/dL HDL Cholesterol 46 40-59 mg/dL Thyroid Stimulating Hormone (TSH) 2.86 0.55-4.78 uIU/mL Sodium Level 142 136-145 mmol/L Potassium Level 4.2 3.5-5.1 mmol/L Chloride Level 106 98-107 mmol/L Carbon Dioxide Level 22 20-31 mmol/L Anion Gap 14 5-15 Blood Urea Nitrogen 21 9-23 mg/dL BUN/Creatinine Ratio 15.3 10.0-20.0 Serum Glucose 167 H 74-106 mg/dL Calcium Level 9.4 8.7-10.4 mg/dL Total Bilirubin 4.0 H 0.2-1.0 mg/dL Aspartate Amino Transferase (AST) 15 13-40 U/L Alanine Aminotransferase (ALT) 16 7-40 U/L Alkaline Phosphatase 100 46-116 U/L Total Protein 7.4 5.7-8.2 g/dL Urine Color Yellow Yellow Urine Clarity Clear Clear Urine pH 5.5 5.0-9.0 Urine Specific [place] 1.039 H 1.001-1.035 Urine Protein Negative Negative Urine Ketones 1+ H Negative Urine Blood Negative Negative /uL Urine Nitrite Negative Negative Urine Bilirubin Negative Negative Urine Urobilinogen Normal Negative mg/dL Urine Leukocyte Esterase Negative Negative /uL Urine RBC 2 0 - 3 /hpf Urine Microscopic WBC 2 0-3 /HPF Urine Squamous Epithelial Cells None seen <5 /hpf Urine Bacteria None seen None Seen /hpf Urine Glucose 4+ H Normal mg/dL Test 09/17/25 17:42 09/17/25 16:42 Range/Units Troponin I High Sensitivity 3 L </=54 ng/L Lactic Acid Level 1.7 0.4-2.0 mmol/L B-Type Natriuretic Peptide 89.59 0-100 pg/mL Lipase 35 12-53 U/L Microbiology Date/Time Source Procedure Growth Status 09/17/25 20:10 Blood Blood Culture - Final Complete Assessment 1. SBO Plan/Recommendation 1. patient refused NGT 2. SBFT with gastrografin Plan discussed with: Patient SAM BARNARD MD Sep 20, 2025 16:46
--- NOTE | 2025-09-20 18:06 | DVH ---
CHEST RADIOGRAPH Indication: NG TUBE PLACEMENT Technique: Single frontal view of the chest was obtained Comparison: XY CHEST PORTABLE on DOS: 09/17/25, XY CHEST PORTABLE on DOS: 09/04/25, XR CHEST 1 VIEW o n DOS: 01/14/25 FINDINGS: Lines and Tubes: Enteric tube below the left diaphragm in the stomach. Dual-chamber pacemaker in anayeli ce with pulse generator over the left chest. Right shoulder prosthesis in place unchanged from 09/17/2025 Lungs: No focal consolidation. Pleura: No effusion. No pneumothorax. Cardiomediastinal contours: Cardiomegaly unchanged from 09/17/2025. Bones: No acute osseous abnormality. IMPRESSION: 1. Stable cardiomegaly 2. Enteric tube in the stomach 3. Pacemaker in place unchanged 4. Right shoulder prosthesis visualized unchanged.
[2025-09-20] MEDS: DIGOXIN (250MCG/ML) 2 ML AMPULE IV ONE (18:40)
--- NOTE | 2025-09-20 19:39 | DVHPN2 ---
Progress Note - Dictate Date Seen: Sep 20, 2025 Medical Necessity Reason Pt with a Central, PICC or Fol: No Subjective Patient was seen and evaluated in follow up. Per RN, the patient had dark colored emesis. KUB shows distended small bowel gas-filled and measures 4-5 cm. Oral contrast noted throughout colon from the cecum to the rectum. Findings may represent partial small bowel obstruction or small bowel obstruction with interim abdominal surgery and residual contrast in the colon. Telemetry reviewed. vital signs Vital Sign Date Time Temp Pulse Resp B/P (MAP) Pulse Ox O2 Delivery O2 Flow Rate FiO2 09/20/25 09:52 91 160/92 09/20/25 09:00 97.1 20 91 97.1 09/20/25 08:00 Nasal Cannula* 2 28 Total Intake and Output 09/19/25 09/19/25 09/20/25 15:00 23:00 07:00 Intake Total 100 ml 600 ml 500 ml Output Total 600 ml 650 ml Balance 100 ml 0 ml -150 ml medications Current Medications Medications Dose Ordered Sig/Lobito Route Start Time Stop Time Status Last Admin Dose Admin Metronidazole 100 ml @ 100 mls/hr Q8HR IV 09/18/25 06:00 09/20/25 05:53 100 MLS/HR Labetalol HCl 5 mg Q2HPRN PRN IV 09/17/25 22:00 Sodium Chloride 1,000 ml @ 60 mls/hr [id number] IV 09/17/25 22:00 09/19/25 06:23 60 MLS/HR Acetaminophen/ Hydrocodone Bitart 1 tab Q4HP PRN PO 09/17/25 22:00 Ondansetron HCl 4 mg Q4HP PRN IV 09/17/25 22:00 09/20/25 09:18 4 MG Acetaminophen 650 mg Q6HP PRN PO 09/17/25 22:00 Morphine Sulfate 2 mg Q4HPRN PRN IV 09/17/25 22:00 09/19/25 02:12 2 MG Nitroglycerin 0.4 mg Q5MINP PRN SL 09/17/25 22:00 Morphine Sulfate 2 mg Q30M PRN IV 09/17/25 22:00 Azithromycin 250 ml @ 125 mls/hr DAILY@2200 IV 09/18/25 22:00 09/19/25 22:02 125 MLS/HR Warfarin Sodium RX PROTOCOL PER PHARMACY PO 09/18/25 01:30 Atorvastatin Calcium 40 mg HS PO 09/19/25 22:00 09/19/25 21:56 40 MG Furosemide 20 mg DAILY PO 09/19/25 10:00 09/20/25 09:52 20 MG Sacubitril/ Valsartan 0.5 tab BID PO 09/19/25 22:00 09/20/25 09:51 0.5 TAB Carvedilol 3.125 mg Q12HR PO 09/19/25 22:00 09/20/25 09:52 3.125 MG Empaglifozin 10 mg DAILY PO 09/20/25 10:00 09/20/25 09:52 10 MG Amiodarone HCl 400 mg Q12HR PO 09/20/25 10:00 09/20/25 09:51 400 MG Lactated Ringer's 1,000 ml @ 100 mls/hr Q10H IV 09/20/25 11:30 09/20/25 12:41 100 MLS/HR Promethazine HCl 25 mg Q6HP PRN PO 09/20/25 11:45 09/20/25 12:40 25 MG objective GENERAL: Alert and oriented x 3. No acute distress. EYES: PERRL, EOMI. Anicteric. HENT: Moist mucous membranes. LUNGS: Clear to auscultation bilaterally. CARDIOVASCULAR: Regular rate and rhythm. ABDOMEN: Soft, nontender and nondistended. EXTREMITIES: No edema. NEUROLOGIC: No focal neurological deficits. SKIN: Warm, dry. laboratory and microbiology Laboratory Tests 09/20/25 05:22 09/18/25 05:56 Test 09/18/25 05:56 Range/Units Serum Glucose 167 H 74-106 mg/dL Problem List Acute abdominal pain. Acute small bowel obstruction. Acute dehydration. Hypercholesterolemia. History of DVT on Coumadin. Nausea and vomiting. CHF exacerbation. Community-acquired pneumonia. Tachycardia. Assessment/Plan Continued all current supportive medical care. Morphine and Calvin for pain management. Amiodarone. IV antibiotics as ordered. Coreg. Diuretics with Lasix. IV Labetalol for SBP > 150. Nitro SL. Entresto. Additional plan as per the hospital course. Dietary Evaluation Review Comments: 1) Advance to cardiac diet when medically feasible 2) Collect HbA1c d/t elevated BG levels 3) Refer to outpatient RD for weight management 4) Follow-up with gastroenterology and cardiology 5) Continue to monitor I&O, labs, and skin integrity Expected Outcomes/Goals: 1) appetite and labs to improve 2) diet to advance 3) gradual wt loss 4) f/u in 3-5 days Plan discussed with: Patient MARGARET BORDEN MD Sep 20, 2025 13:24
[2025-09-21] VITALS (24 sets, daily range): BP systolic 102–154; BP diastolic 64–118; PULSE 92–106; RESP 18–40; TEMP 98.3–99.2; O2SAT 90–95
[2025-09-21 05:59] LABS: Hematocrit 48.7 % (41.0-53.0); Hemoglobin 16.5 g/dL (13.5-17.5); Mean Corpuscular Hemoglobin 29.2 pg (28.0-32.0); Mean Corpuscular Volume 85.8 fL (80.0-100.0); Nucleated Red Blood Cells % 0.1 %
[2025-09-21 06:11] LABS: INR 2.85 (0.9-1.15); Partial Thromboplastin Time 42.8 SEC (24.5-34.5); Prothrombin Time 27.2 sec (9.3-11.8)
[2025-09-21 06:16] LABS: Anion Gap 12 (5-15); Calcium 9.0 mg/dL (8.7-10.4); Carbon Dioxide 29 mmol/L (20-31); Chloride 105 mmol/L (98-107)
[2025-09-21 06:22] LABS: BUN/Creatinine Ratio 19.1 (10.0-20.0)
[2025-09-21 06:23] LABS: Blood Urea Nitrogen 30 mg/dL (9-23); Glucose 134 mg/dL (74-106); Potassium 3.4 mmol/L (3.5-5.1); Sodium 146 mmol/L (136-145)
--- NOTE | 2025-09-21 11:27 | DVHPN2 ---
Reviewed: Care Plan, H&P, Labs, Medications, Previous Orders, Radiology Changes from previous H/P or p: No Changes Eyes: No Pain, No Vision change, No Conjunctivae inflammation, No Eyelid inflammation, No Other, No Redness ENT: No Ear pain, No Ear discharge, No Nose pain, No Nose discharge, No Nose congestion, No Mouth pain, No Mouth swelling, No Throat pain, No Throat swelling, No Other Cardiovascular: No Chest Pain, No Palpitations, No Orthopnea, No Paroxysmal Noc. Dyspnea, No Edema, No Lt Headedness, No Other Respiratory: No Cough, No Dry, No Shortness of breath, No SOB with excertion, No Wheezing, No Hemoptysis, No Pleuritic Pain, No Sputum, No Other Gastrointestinal: Nausea, Vomiting, Abdominal Pain; No Diarrhea, No Constipation, No Melena, No Hematochezia, No Other Genitourinary: No Dysuria, No Frequency, No Incontinence, No Hematuria, No Retention, No Other Musculoskeletal: No other, No neck pain, No shoulder pain, No arm pain, No back pain, No hand pain, No leg pain, No foot pain Skin: No Rash, No Lesions, No Jaundice, No Bruising, No Other Objective Vitals Vital Signs Date Time Temp Pulse Resp B/P (MAP) Pulse Ox O2 Delivery O2 Flow Rate FiO2 09/21/25 10:57 152/79 09/21/25 10:51 100 09/21/25 08:00 99.2 19 93 99.2 09/21/25 08:00 Nasal Cannula* 4 36 Intake/Output Intake and Output 09/21/25 07:00 Intake Total 1250 ml Output Total 3350 ml Balance -2100 ml Intake Oral 900 ml IV Total 350 ml Output Urine Total 1100 ml Gastric Drainage Total 2250 ml # Voids 2 Medications Current Medications Medications Dose Ordered Sig/Lobito Route Start Time Stop Time Status Last Admin Dose Admin Metronidazole 100 ml @ 100 mls/hr Q8HR IV 09/18/25 06:00 09/21/25 05:31 100 MLS/HR Labetalol HCl 5 mg Q2HPRN PRN IV 09/17/25 22:00 Acetaminophen/ Hydrocodone Bitart 1 tab Q4HP PRN PO 09/17/25 22:00 Ondansetron HCl 4 mg Q4HP PRN IV 09/17/25 22:00 09/20/25 09:18 4 MG Acetaminophen 650 mg Q6HP PRN PO 09/17/25 22:00 Morphine Sulfate 2 mg Q4HPRN PRN IV 09/17/25 22:00 09/19/25 02:12 2 MG Nitroglycerin 0.4 mg Q5MINP PRN SL 09/17/25 22:00 Morphine Sulfate 2 mg Q30M PRN IV 09/17/25 22:00 Azithromycin 250 ml @ 125 mls/hr DAILY@2200 IV 09/18/25 22:00 09/20/25 21:33 125 MLS/HR Warfarin Sodium RX PROTOCOL PER PHARMACY PO 09/18/25 01:30 Atorvastatin Calcium 40 mg HS PO 09/19/25 22:00 09/20/25 21:34 40 MG Furosemide 20 mg DAILY PO 09/19/25 10:00 09/21/25 10:57 20 MG Sacubitril/ Valsartan 0.5 tab BID PO 09/19/25 22:00 09/21/25 10:56 0.5 TAB Carvedilol 3.125 mg Q12HR PO 09/19/25 22:00 09/21/25 10:51 3.125 MG Empaglifozin 10 mg DAILY PO 09/20/25 10:00 09/21/25 10:56 10 MG Amiodarone HCl 400 mg Q12HR PO 09/20/25 10:00 09/21/25 10:51 400 MG Lactated Ringer's 1,000 ml @ 100 mls/hr Q10H IV 09/20/25 11:30 09/21/25 07:24 100 MLS/HR Promethazine HCl 25 mg Q6HP PRN PO 09/20/25 11:45 09/20/25 12:40 25 MG Amiodarone HCl 250 ml @ 16.66 mls/ hr Q15H1M IV 09/20/25 22:30 UNV Laboratory Results Laboratory Tests 09/21/25 05:05 Chemistry Test 09/21/25 05:05 Calcium Level 9.0 mg/dL (8.7-10.4) Coagulation Test 09/21/25 05:05 Prothrombin Time 27.2 sec (9.3-11.8) H Prothrombin Time INR 2.85 (0.9-1.15) H Activated Partial Thromboplast Time 42.8 SEC (24.5-34.5) H Urinalysis Test 09/17/25 22:17 Urine Color Yellow (Yellow) Urine Clarity Clear (Clear) Urine pH 5.5 (5.0-9.0) Urine Specific [place] 1.039 (1.001-1.035) Urine Protein Negative (Negative) Urine Ketones 1+ (Negative) H Urine Blood Negative /uL (Negative) Urine Nitrite Negative (Negative) Urine Bilirubin Negative (Negative) Urine Urobilinogen Normal mg/dL (Negative) Urine Leukocyte Esterase Negative /uL (Negative) Urine RBC 2 /hpf (0 - 3) Urine Microscopic WBC 2 /HPF (0-3) Urine Squamous Epithelial Cells None seen /hpf (<5) Urine Bacteria None seen /hpf (None Seen) Urine Glucose 4+ mg/dL (Normal) H Microbiology Microbiology Date/Time Source Procedure Growth Status 09/17/25 20:10 Blood Blood Culture - Final Complete Labs and/or images reviewed: Labs reviewed by me, Image(s) reviewed by me Assessment/Plan Assessment/Plan Acute abdominal pain Acute small bowel obstruction: NPO: Consult by surgeon Dr. Kirby appreciated, small-bowel series shows no obstruction Acute dehydration: IV fluids Hypercholesterolemia History of DVT on Coumadin ; patient has bloody emesis, DC Coumadin in anticipation of possible endoscopy Nausea and vomiting: Zofran Compazine CHF exacerbation: Lasix Coreg Entresto, Possible community-acquired pneumonia Gram-positive versus Gram-negative: Rocephin azithromycin Tachycardia: Labetalol, cardiology consult by Dr. Oconnor appreciated Blood Cultures negative CHF exacerbation Time spent 50 minutes Advanced care planning time 20 minutes Patient is full code Clear liquid diet Ambulate PCP Dr Holland Patient lives alone Son Ronen Guzman who lives in [place] [phone] at bedside Pts girl friend Adry # is in the system Plan discussed with: Patient My Orders Orders - BOLIVAR TORRES MD Procedure Category Date Status Time Lactated Ringer's PHA 09/20/25 In Process 11:30 Promethazine Plain PHA 09/20/25 In Process Syrup (Phenergan Plai 11:45 Transfer Orders XFER 09/20/25 Transmitted 15:54 * Cardiology Consult CONS 09/20/25 Transmitted 15:54 Date of Service: Sep 21, 2025 Billing Provider: BOLIVAR TORRES MD Common Visit Codes: [id number] INP/OBS CARE(HIGH) BOLIVAR TORRES MD Sep 21, 2025 11:27
--- NOTE | 2025-09-21 12:44 | DVHPN2 ---
Progress Note - Dictate Date Seen: Sep 21, 2025 Medical Necessity Reason Pt with a Central, PICC or Fol: No Subjective Patient was seen and evaluated in follow up in the [facility]. Patent was transferred to the [facility] overnight. Patient is on 4 LPM NC. Patient has NGT in place. WBC 10.9, NA 146, K 3.4, BUN 30, [place] Man 1.57. vital signs Vital Sign Date Time Temp Pulse Resp B/P (MAP) Pulse Ox O2 Delivery O2 Flow Rate FiO2 09/21/25 10:57 152/79 09/21/25 10:51 100 09/21/25 08:00 99.2 19 93 99.2 09/21/25 08:00 Nasal Cannula* 4 36 Total Intake and Output 09/20/25 09/20/25 09/21/25 15:00 23:00 07:00 Intake Total 1000 ml 250 ml Output Total 1400 ml 1950 ml Balance -400 ml -1700 ml medications Current Medications Medications Dose Ordered Sig/Lobito Route Start Time Stop Time Status Last Admin Dose Admin Metronidazole 100 ml @ 100 mls/hr Q8HR IV 09/18/25 06:00 09/21/25 05:31 100 MLS/HR Labetalol HCl 5 mg Q2HPRN PRN IV 09/17/25 22:00 Acetaminophen/ Hydrocodone Bitart 1 tab Q4HP PRN PO 09/17/25 22:00 Ondansetron HCl 4 mg Q4HP PRN IV 09/17/25 22:00 09/20/25 09:18 4 MG Acetaminophen 650 mg Q6HP PRN PO 09/17/25 22:00 Morphine Sulfate 2 mg Q4HPRN PRN IV 09/17/25 22:00 09/19/25 02:12 2 MG Nitroglycerin 0.4 mg Q5MINP PRN SL 09/17/25 22:00 Morphine Sulfate 2 mg Q30M PRN IV 09/17/25 22:00 Azithromycin 250 ml @ 125 mls/hr DAILY@2200 IV 09/18/25 22:00 09/20/25 21:33 125 MLS/HR Atorvastatin Calcium 40 mg HS PO 09/19/25 22:00 09/20/25 21:34 40 MG Furosemide 20 mg DAILY PO 09/19/25 10:00 09/21/25 10:57 20 MG Sacubitril/ Valsartan 0.5 tab BID PO 09/19/25 22:00 09/21/25 10:56 0.5 TAB Carvedilol 3.125 mg Q12HR PO 09/19/25 22:00 09/21/25 10:51 3.125 MG Empaglifozin 10 mg DAILY PO 09/20/25 10:00 09/21/25 10:56 10 MG Amiodarone HCl 400 mg Q12HR PO 09/20/25 10:00 09/21/25 10:51 400 MG Lactated Ringer's 1,000 ml @ 100 mls/hr Q10H IV 09/20/25 11:30 09/21/25 07:24 100 MLS/HR Promethazine HCl 25 mg Q6HP PRN PO 09/20/25 11:45 09/20/25 12:40 25 MG Amiodarone HCl 250 ml @ 16.66 mls/ hr Q15H1M IV 09/20/25 22:30 UNV objective GENERAL: Alert and oriented x 3. No acute distress. EYES: PERRL, EOMI. Anicteric. HENT: Moist mucous membranes. LUNGS: Clear to auscultation bilaterally. CARDIOVASCULAR: Regular rate and rhythm. ABDOMEN: Soft, nontender and nondistended. EXTREMITIES: No edema. NEUROLOGIC: No focal neurological deficits. SKIN: Warm, dry. laboratory and microbiology Laboratory Tests 09/21/25 05:05 Test 09/21/25 05:05 Range/Units Serum Glucose 134 H 74-106 mg/dL Problem List Acute abdominal pain. Acute small bowel obstruction. Acute dehydration. Hypercholesterolemia. History of DVT on Coumadin. Nausea and vomiting. CHF exacerbation. Community-acquired pneumonia. Tachycardia. Assessment/Plan Continued all current supportive medical care. Morphine and [place] for pain management. Amiodarone. Lipitor. IV antibiotics as ordered. Coreg. Diuretics with Lasix. IV Labetalol for SBP > 150. Nitro SL. Entresto. Additional plan as per the hospital course. Critical care time of 45 minutes provided to include time spent evaluation of patient at bedside, when appropriate patient/family education for diagnosis, treatment plan, review of pertinent medical information and discussion of care with specialty providers and PCP Dietary Evaluation Review Comments: 1) Advance to cardiac diet when medically feasible 2) Collect HbA1c d/t elevated BG levels 3) Refer to outpatient RD for weight management 4) Follow-up with gastroenterology and cardiology 5) Continue to monitor I&O, labs, and skin integrity Expected Outcomes/Goals: 1) appetite and labs to improve 2) diet to advance 3) gradual wt loss 4) f/u in 3-5 days Plan discussed with: Patient MARGARET BORDEN MD Sep 21, 2025 12:44
--- NOTE | 2025-09-21 13:41 | DVHPN2 ---
Progress Note - Dictate Date Seen: Sep 21, 2025 Medical Necessity Reason Pt with a Central, PICC or Fol: No Subjective E: no major events overnight. After the NG tube placement, over 1500 mL of output Feels much better. vital signs Vital Sign Date Time Temp Pulse Resp B/P (MAP) Pulse Ox O2 Delivery O2 Flow Rate FiO2 09/21/25 12:00 103 09/21/25 12:00 136/77 09/21/25 12:00 98.5 21 95 98.5 09/21/25 08:00 Nasal Cannula* 4 36 Total Intake and Output 09/20/25 09/20/25 09/21/25 15:00 23:00 07:00 Intake Total 1000 ml 350 ml Output Total 1400 ml 1950 ml Balance -400 ml -1600 ml medications Current Medications Medications Dose Ordered Sig/Lobito Route Start Time Stop Time Status Last Admin Dose Admin Metronidazole 100 ml @ 100 mls/hr Q8HR IV 09/18/25 06:00 09/21/25 05:31 100 MLS/HR Labetalol HCl 5 mg Q2HPRN PRN IV 09/17/25 22:00 Acetaminophen/ Hydrocodone Bitart 1 tab Q4HP PRN PO 09/17/25 22:00 Ondansetron HCl 4 mg Q4HP PRN IV 09/17/25 22:00 09/20/25 09:18 4 MG Acetaminophen 650 mg Q6HP PRN PO 09/17/25 22:00 Morphine Sulfate 2 mg Q4HPRN PRN IV 09/17/25 22:00 09/19/25 02:12 2 MG Nitroglycerin 0.4 mg Q5MINP PRN SL 09/17/25 22:00 Morphine Sulfate 2 mg Q30M PRN IV 09/17/25 22:00 Azithromycin 250 ml @ 125 mls/hr DAILY@2200 IV 09/18/25 22:00 09/20/25 21:33 125 MLS/HR Atorvastatin Calcium 40 mg HS PO 09/19/25 22:00 09/20/25 21:34 40 MG Furosemide 20 mg DAILY PO 09/19/25 10:00 09/21/25 10:57 20 MG Sacubitril/ Valsartan 0.5 tab BID PO 09/19/25 22:00 09/21/25 10:56 0.5 TAB Carvedilol 3.125 mg Q12HR PO 09/19/25 22:00 09/21/25 10:51 3.125 MG Empaglifozin 10 mg DAILY PO 09/20/25 10:00 09/21/25 10:56 10 MG Amiodarone HCl 400 mg Q12HR PO 09/20/25 10:00 09/21/25 10:51 400 MG Lactated Ringer's 1,000 ml @ 100 mls/hr Q10H IV 09/20/25 11:30 09/21/25 07:24 100 MLS/HR Promethazine HCl 25 mg Q6HP PRN PO 09/20/25 11:45 09/20/25 12:40 25 MG Amiodarone HCl 250 ml @ 16.66 mls/ hr Q15H1M IV 09/20/25 22:30 UNV objective GEN: NAD. ABD: much softer and less distended. NGT 1300 mL output since last night. laboratory and microbiology Laboratory Tests 09/21/25 05:05 Test 09/21/25 05:05 Range/Units Serum Glucose 134 H 74-106 mg/dL Assessment/Plan A: 1. SBO improving P: 1. repeat SBFT with gastrografin Dietary Evaluation Review Comments: 1) Advance to cardiac diet when medically feasible 2) Collect HbA1c d/t elevated BG levels 3) Refer to outpatient RD for weight management 4) Follow-up with gastroenterology and cardiology 5) Continue to monitor I&O, labs, and skin integrity Expected Outcomes/Goals: 1) appetite and labs to improve 2) diet to advance 3) gradual wt loss 4) f/u in 3-5 days Plan discussed with: Patient SAM BARNARD MD Sep 21, 2025 13:41
--- NOTE | 2025-09-21 16:46 | DVHPN2 ---
Progress Note - Dictate Date Seen: Sep 21, 2025 Medical Necessity Reason Pt with a Central, PICC or Fol: No Subjective 69-year-old male with prior history of bowel resection for ischemic bowel admitted secondary to abdominal distention, pain and nausea and vomiting. Initial small-bowel series suggestive of ileus versus bowel obstruction, however the patient has not moved his bowels and is still having moderate NG tube output Last colonoscopy was two years ago which she reports as being negative Past Medical History Hypertension. History of DVT. CHF. Past Surgical History Pacemaker placement. Bowel resection. Shoulder surgery. Hernia repair. vital signs Vital Sign Date Time Temp Pulse Resp B/P (MAP) Pulse Ox O2 Delivery O2 Flow Rate FiO2 09/21/25 12:00 103 09/21/25 12:00 136/77 09/21/25 12:00 98.5 21 95 98.5 09/21/25 08:00 Nasal Cannula* 4 36 Total Intake and Output 09/20/25 09/20/25 09/21/25 15:00 23:00 07:00 Intake Total 1000 ml 350 ml Output Total 1400 ml 1950 ml Balance -400 ml -1600 ml medications Current Medications Medications Dose Ordered Sig/Lobito Route Start Time Stop Time Status Last Admin Dose Admin Metronidazole 100 ml @ 100 mls/hr Q8HR IV 09/18/25 06:00 09/21/25 13:51 100 MLS/HR Labetalol HCl 5 mg Q2HPRN PRN IV 09/17/25 22:00 Acetaminophen/ Hydrocodone Bitart 1 tab Q4HP PRN PO 09/17/25 22:00 Ondansetron HCl 4 mg Q4HP PRN IV 09/17/25 22:00 09/20/25 09:18 4 MG Acetaminophen 650 mg Q6HP PRN PO 09/17/25 22:00 Morphine Sulfate 2 mg Q4HPRN PRN IV 09/17/25 22:00 09/19/25 02:12 2 MG Nitroglycerin 0.4 mg Q5MINP PRN SL 09/17/25 22:00 Morphine Sulfate 2 mg Q30M PRN IV 09/17/25 22:00 Azithromycin 250 ml @ 125 mls/hr DAILY@2200 IV 09/18/25 22:00 09/20/25 21:33 125 MLS/HR Atorvastatin Calcium 40 mg HS PO 09/19/25 22:00 09/20/25 21:34 40 MG Furosemide 20 mg DAILY PO 09/19/25 10:00 09/21/25 10:57 20 MG Sacubitril/ Valsartan 0.5 tab BID PO 09/19/25 22:00 09/21/25 10:56 0.5 TAB Carvedilol 3.125 mg Q12HR PO 09/19/25 22:00 09/21/25 10:51 3.125 MG Empaglifozin 10 mg DAILY PO 09/20/25 10:00 09/21/25 10:56 10 MG Amiodarone HCl 400 mg Q12HR PO 09/20/25 10:00 09/21/25 10:51 400 MG Lactated Ringer's 1,000 ml @ 100 mls/hr Q10H IV 09/20/25 11:30 09/21/25 07:24 100 MLS/HR Promethazine HCl 25 mg Q6HP PRN PO 09/20/25 11:45 09/20/25 12:40 25 MG Amiodarone HCl 250 ml @ 16.66 mls/ hr Q15H1M IV 09/20/25 22:30 UNV Pantoprazole Sodium 40 mg BID IV 09/21/25 22:00 objective GEN: NAD. Awake alert NG tube output 1300 mL dark greenish ABD: Soft, nontender, mildly distended with hypoactive bowel sounds. laboratory and microbiology Laboratory Tests 09/21/25 05:05 Test 09/21/25 05:05 Range/Units Serum Glucose 134 H 74-106 mg/dL Problems(with codes): (1) Intractable nausea and vomiting (2) Abnormal finding on CT scan (3) SBO (small bowel obstruction) (4) Constipation Prognosis Plan Patient is awaiting repeat small-bowel series Keep him NPO except for ice chips NG tube to low intermittent suction If the small-bowel series does not show any obstruction then we will start him on IV Reglan and possibly give him a fleets enema Continue supportive care, continue to hold Coumadin and this has PT INR was elevated I will follow up patient with you Dietary Evaluation Review Comments: 1) Advance to cardiac diet when medically feasible 2) Collect HbA1c d/t elevated BG levels 3) Refer to outpatient RD for weight management 4) Follow-up with gastroenterology and cardiology 5) Continue to monitor I&O, labs, and skin integrity Expected Outcomes/Goals: 1) appetite and labs to improve 2) diet to advance 3) gradual wt loss 4) f/u in 3-5 days Plan discussed with: Patient, Other (Nurse) RENETTA CALDERA MD Sep 21, 2025 16:46
[2025-09-21] MEDS ORDERED: WARFARIN SODIUM 2 MG TAB PO ONE (17:00)
[2025-09-21] MEDS ORDERED: WARFARIN SODIUM 1 MG TAB PO ONE (17:00)
[2025-09-21] MEDS: PANTOPRAZOLE 40 MG/10 ML VIAL INJ IV SCH (21:34)
[2025-09-22] VITALS (20 sets, daily range): BP systolic 118–157; BP diastolic 48–92; PULSE 80–131; RESP 14–30; TEMP 98.3–99.8; O2SAT 90–96
[2025-09-22 06:12] LABS: Hematocrit 47.6 % (41.0-53.0); Hemoglobin 16.1 g/dL (13.5-17.5); Mean Corpuscular Hemoglobin 29.4 pg (28.0-32.0); Mean Corpuscular Volume 87.0 fL (80.0-100.0); Nucleated Red Blood Cells % 0.0 %
[2025-09-22 06:31] LABS: Alanine Aminotransferase 12 U/L (7-40); Albumin 3.8 g/dL (3.2-4.8); Alkaline Phosphatase 72 U/L (46-116); Anion Gap 13 (5-15); BUN/Creatinine Ratio 19.5 (10.0-20.0); Calcium 8.8 mg/dL (8.7-10.4); Chloride 106 mmol/L (98-107); INR 1.21 (0.9-1.15); Partial Thromboplastin Time 28.8 SEC (24.5-34.5); Prothrombin Time 12.6 sec (9.3-11.8); Total Protein 6.4 g/dL (5.7-8.2)
[2025-09-22 06:32] LABS: Bilirubin, Total 3.1 mg/dL (0.2-1.0); Blood Urea Nitrogen 29 mg/dL (9-23); Carbon Dioxide 31 mmol/L (20-31); Glucose 108 mg/dL (74-106); Magnesium 2.7 mg/dL (1.6-2.6); Potassium 3.3 mmol/L (3.5-5.1); Sodium 150 mmol/L (136-145)
[2025-09-22] MEDS: POTASSIUM CHL 20MEQ/100ML 100 ML IV ONE (07:32)
--- NOTE | 2025-09-22 09:02 | DVHPN2 ---
Progress Note - Dictate Date Seen: Sep 22, 2025 Medical Necessity Reason Pt with a Central, PICC or Fol: No Subjective E: no major events overnight. SBFT not done yesterday. scheduled for today. denies abd pain. reports small BM. vital signs Vital Sign Date Time Temp Pulse Resp B/P (MAP) Pulse Ox O2 Delivery O2 Flow Rate FiO2 09/22/25 08:00 98.5 94 21 124/67 (86) 92 98.5 09/22/25 08:00 Nasal Cannula* 4 36 Total Intake and Output 09/21/25 09/21/25 09/22/25 15:00 23:00 07:00 Intake Total 800 ml 1020 ml 950 ml Output Total 1700 ml 1050 ml Balance 800 ml -680 ml -100 ml medications Current Medications Medications Dose Ordered Sig/Lobito Route Start Time Stop Time Status Last Admin Dose Admin Metronidazole 100 ml @ 100 mls/hr Q8HR IV 09/18/25 06:00 09/22/25 05:21 100 MLS/HR Labetalol HCl 5 mg Q2HPRN PRN IV 09/17/25 22:00 Acetaminophen/ Hydrocodone Bitart 1 tab Q4HP PRN PO 09/17/25 22:00 Ondansetron HCl 4 mg Q4HP PRN IV 09/17/25 22:00 09/20/25 09:18 4 MG Acetaminophen 650 mg Q6HP PRN PO 09/17/25 22:00 Morphine Sulfate 2 mg Q4HPRN PRN IV 09/17/25 22:00 09/19/25 02:12 2 MG Nitroglycerin 0.4 mg Q5MINP PRN SL 09/17/25 22:00 Morphine Sulfate 2 mg Q30M PRN IV 09/17/25 22:00 Azithromycin 250 ml @ 125 mls/hr DAILY@2200 IV 09/18/25 22:00 09/21/25 21:33 125 MLS/HR Atorvastatin Calcium 40 mg HS PO 09/19/25 22:00 09/21/25 21:35 40 MG Furosemide 20 mg DAILY PO 09/19/25 10:00 09/21/25 10:57 20 MG Sacubitril/ Valsartan 0.5 tab BID PO 09/19/25 22:00 09/21/25 21:35 0.5 TAB Carvedilol 3.125 mg Q12HR PO 09/19/25 22:00 09/21/25 21:35 3.125 MG Empaglifozin 10 mg DAILY PO 09/20/25 10:00 09/21/25 10:56 10 MG Amiodarone HCl 400 mg Q12HR PO 09/20/25 10:00 09/21/25 21:34 400 MG Lactated Ringer's 1,000 ml @ 100 mls/hr Q10H IV 09/20/25 11:30 09/22/25 02:57 100 MLS/HR Promethazine HCl 25 mg Q6HP PRN PO 09/20/25 11:45 09/20/25 12:40 25 MG Amiodarone HCl 250 ml @ 16.66 mls/ hr Q15H1M IV 09/20/25 22:30 UNV Pantoprazole Sodium 40 mg BID IV 09/21/25 22:00 09/21/25 21:34 40 MG objective GEN: NAD. ABD: soft. NT/ND. NGT 350 mL overnight. laboratory and microbiology Laboratory Tests 09/22/25 05:00 Test 09/22/25 05:00 Range/Units Serum Glucose 108 H 74-106 mg/dL Assessment/Plan A: 1. pSBO improving. P: 1. SBFT with gastrografin pending. 2. will sign out to Dr. Haney today Dietary Evaluation Review Comments: 1) Advance to cardiac diet when medically feasible 2) Collect HbA1c d/t elevated BG levels 3) Refer to outpatient RD for weight management 4) Follow-up with gastroenterology and cardiology 5) Continue to monitor I&O, labs, and skin integrity Expected Outcomes/Goals: 1) appetite and labs to improve 2) diet to advance 3) gradual wt loss 4) f/u in 3-5 days Plan discussed with: Patient SAM BARNARD MD Sep 22, 2025 09:02
[2025-09-22] MEDS: GASTROGRAFIN 120 ML SOL ONE (09:46)
--- NOTE | 2025-09-22 10:26 | MEDREC ---
[facility] ASP Intervention Section I [facility] ASP Intervention: Review courses of therapy (PLEASE CONSIDER ADDING SOME GRAM +/ GRAM - AEROBIC COVERAGE IF CLINICALLY RELEVANT) ANAND ALEXANDRE PHARMACIST Sep 22, 2025 10:26
--- NOTE | 2025-09-22 10:43 | CONS ---
Pharmacy Clinical Information: From Heart Failure Fallout Report on CQM Application, Ronen Guzman is a 69 year old male with PMH of HTN, HLD, CHF, chronic hernias, and blood clot His home medications for heart failure include carvedilol, empagliflozin, and sacubitril-valsartan His inpatient medications for heart failure include carvedilol, empagliflozin, and sacubitril-valsartan In accordance with the 2021 AHA/ACC/HFSA Heart Failure Guidelines, a mineralocorticoid receptor antagonist (MRA) such as spironolactone or eplerenone should be initiated in patients with HFrEF to reduce cardiovascular mortality and heart failure hospitalization RYAN COVARRUBIAS [facility] RES[facility] Sep 22, 2025 10:43
--- NOTE | 2025-09-22 10:58 | DVHPN2 ---
Reviewed: Care Plan, H&P, Labs, Medications, Previous Orders, Radiology Changes from previous H/P or p: No Changes Eyes: No Pain, No Vision change, No Conjunctivae inflammation, No Eyelid inflammation, No Other, No Redness ENT: No Ear pain, No Ear discharge, No Nose pain, No Nose discharge, No Nose congestion, No Mouth pain, No Mouth swelling, No Throat pain, No Throat swelling, No Other Cardiovascular: No Chest Pain, No Palpitations, No Orthopnea, No Paroxysmal Noc. Dyspnea, No Edema, No Lt Headedness, No Other Respiratory: No Cough, No Dry, No Shortness of breath, No SOB with excertion, No Wheezing, No Hemoptysis, No Pleuritic Pain, No Sputum, No Other Gastrointestinal: Nausea, Vomiting, Abdominal Pain; No Diarrhea, No Constipation, No Melena, No Hematochezia, No Other Genitourinary: No Dysuria, No Frequency, No Incontinence, No Hematuria, No Retention, No Other Musculoskeletal: No other, No neck pain, No shoulder pain, No arm pain, No back pain, No hand pain, No leg pain, No foot pain Skin: No Rash, No Lesions, No Jaundice, No Bruising, No Other Objective Vitals Vital Signs Date Time Temp Pulse Resp B/P (MAP) Pulse Ox O2 Delivery O2 Flow Rate FiO2 09/22/25 10:24 168/50 09/22/25 10:21 99 09/22/25 08:00 98.5 21 92 98.5 09/22/25 08:00 Nasal Cannula* 4 36 Intake/Output Intake and Output 09/22/25 07:00 Intake Total 2770 ml Output Total 2750 ml Balance 20 ml Intake Oral 120 ml IV Total 2650 ml Output Urine Total 1150 ml Gastric Drainage Total 350 ml Chest Tube Drainage Total 1250 ml # Voids 3 Medications Current Medications Medications Dose Ordered Sig/Lobito Route Start Time Stop Time Status Last Admin Dose Admin Metronidazole 100 ml @ 100 mls/hr Q8HR IV 09/18/25 06:00 09/22/25 05:21 100 MLS/HR Labetalol HCl 5 mg Q2HPRN PRN IV 09/17/25 22:00 Acetaminophen/ Hydrocodone Bitart 1 tab Q4HP PRN PO 09/17/25 22:00 Ondansetron HCl 4 mg Q4HP PRN IV 09/17/25 22:00 09/20/25 09:18 4 MG Acetaminophen 650 mg Q6HP PRN PO 09/17/25 22:00 Morphine Sulfate 2 mg Q4HPRN PRN IV 09/17/25 22:00 09/19/25 02:12 2 MG Nitroglycerin 0.4 mg Q5MINP PRN SL 09/17/25 22:00 Morphine Sulfate 2 mg Q30M PRN IV 09/17/25 22:00 Azithromycin 250 ml @ 125 mls/hr DAILY@2200 IV 09/18/25 22:00 09/21/25 21:33 125 MLS/HR Atorvastatin Calcium 40 mg HS PO 09/19/25 22:00 09/21/25 21:35 40 MG Furosemide 20 mg DAILY PO 09/19/25 10:00 09/22/25 10:24 20 MG Sacubitril/ Valsartan 0.5 tab BID PO 09/19/25 22:00 09/22/25 10:20 0.5 TAB Carvedilol 3.125 mg Q12HR PO 09/19/25 22:00 09/22/25 10:21 3.125 MG Empaglifozin 10 mg DAILY PO 09/20/25 10:00 09/22/25 10:23 10 MG Amiodarone HCl 400 mg Q12HR PO 09/20/25 10:00 09/22/25 10:23 400 MG Lactated Ringer's 1,000 ml @ 100 mls/hr Q10H IV 09/20/25 11:30 09/22/25 02:57 100 MLS/HR Promethazine HCl 25 mg Q6HP PRN PO 09/20/25 11:45 09/20/25 12:40 25 MG Amiodarone HCl 250 ml @ 16.66 mls/ hr Q15H1M IV 09/20/25 22:30 UNV Pantoprazole Sodium 40 mg BID IV 09/21/25 22:00 09/22/25 10:18 40 MG Laboratory Results Laboratory Tests 09/22/25 05:00 Chemistry Test 09/22/25 05:00 Albumin 3.8 g/dL (3.2-4.8) Calcium Level 8.8 mg/dL (8.7-10.4) Magnesium Level 2.7 mg/dL (1.6-2.6) H Total Protein 6.4 g/dL (5.7-8.2) Coagulation Test 09/22/25 05:00 Prothrombin Time 12.6 sec (9.3-11.8) H Prothrombin Time INR 1.21 (0.9-1.15) H Activated Partial Thromboplast Time 28.8 SEC (24.5-34.5) LFT Test 09/22/25 05:00 Alanine Aminotransferase (ALT) 12 U/L (7-40) Alkaline Phosphatase 72 U/L (46-116) Aspartate Amino Transferase (AST) 16 U/L (13-40) Total Bilirubin 3.1 mg/dL (0.2-1.0) H Urinalysis Test 09/17/25 22:17 Urine Color Yellow (Yellow) Urine Clarity Clear (Clear) Urine pH 5.5 (5.0-9.0) Urine Specific [place] 1.039 (1.001-1.035) Urine Protein Negative (Negative) Urine Ketones 1+ (Negative) H Urine Blood Negative /uL (Negative) Urine Nitrite Negative (Negative) Urine Bilirubin Negative (Negative) Urine Urobilinogen Normal mg/dL (Negative) Urine Leukocyte Esterase Negative /uL (Negative) Urine RBC 2 /hpf (0 - 3) Urine Microscopic WBC 2 /HPF (0-3) Urine Squamous Epithelial Cells None seen /hpf (<5) Urine Bacteria None seen /hpf (None Seen) Urine Glucose 4+ mg/dL (Normal) H Microbiology Microbiology Date/Time Source Procedure Growth Status 09/17/25 20:10 Blood Blood Culture - Final Complete Labs and/or images reviewed: Labs reviewed by me, Image(s) reviewed by me Assessment/Plan Assessment/Plan Acute abdominal pain Acute small bowel obstruction: NPO: Consult by surgeon Dr. Kirby appreciated, small-bowel series pending Acute dehydration: IV fluids Hypercholesterolemia History of DVT on Coumadin ; patient has bloody emesis, DC Coumadin in anticipation of possible endoscopy Nausea and vomiting: Zofran Compazine CHF exacerbation: Lasix Coreg Entresto, Possible community-acquired pneumonia Gram-positive versus Gram-negative: Rocephin azithromycin, Flagyl Tachycardia: Labetalol, cardiology consult by Dr. Oconnor appreciated Blood Cultures negative CHF exacerbation Time spent 50 minutes Advanced care planning time 20 minutes Patient is full code Clear liquid diet Ambulate PCP Dr Holland Patient lives alone Son Ronen Guzman who lives in [place] [phone] at bedside Pts girl friend Adry Plan discussed with: Patient My Orders Orders - BOLIVAR TORRES MD Procedure Category Date Status Time Complete Blood Count LAB 09/23/25 Verified 05:00 Complete Blood Count LAB 09/24/25 Verified 05:00 Comprehensive LAB 09/23/25 Verified Metabolic Panel 05:00 Comprehensive LAB 09/24/25 Verified Metabolic Panel 05:00 Magnesium LAB 09/23/25 Verified 05:00 Magnesium LAB 09/24/25 Verified 05:00 Prothrombin Time W/ LAB 09/23/25 Verified INR 05:00 Prothrombin Time W/ LAB 09/24/25 Verified INR 05:00 Partial LAB 09/23/25 Verified Thromboplastin Time 05:00 Partial LAB 09/24/25 Verified Thromboplastin Time 05:00 Date of Service: Sep 22, 2025 Billing Provider: BOLIVAR TORRES MD Common Visit Codes: [id number] CARE 30-74 MIN BOLIVAR TORRES MD Sep 22, 2025 10:58
--- NOTE | 2025-09-22 16:41 | DVH ---
Procedure: XY SMALL BOWEL SERIES-W GASTROGRA Exam Date: 09/22/2025 09:48 AM Reason for study/Clinical History: SBO Comparison Study: XY SMALL BOWEL SERIES-W GASTROGRA on DOS: 09/18/25 Technique: Single contrast small bowel series performed. Findings: Initial director speech view of the abdomen and pelvis appears demonstrates no acute process. Contrast is identified within the colon by 60 min. This represents a normal small bowel transit time . Small bowel loops are normal in size. Normal mucosal pattern. No evidence of small bowel obstructi on, stricture, or mucosal abnormality. The terminal ileum is well visualized and is unremarkable. IMPRESSION: Normal small bowel series. END IMPRESSION:
--- NOTE | 2025-09-22 18:47 | DVHPN2 ---
Progress Note - Dictate Date Seen: Sep 22, 2025 Medical Necessity Reason Pt with a Central, PICC or Fol: No Subjective Patient seen at bedside, feels better Nurse reports four or five bowel movements Bowel movements started as the Gastrografin series was started His small-bowel follow-through series is negative for any obstruction NG tube output was 350 mL and significantly decreased vital signs Vital Sign Date Time Temp Pulse Resp B/P (MAP) Pulse Ox O2 Delivery O2 Flow Rate FiO2 09/22/25 16:00 98.5 83 14 120/52 (74) 93 98.5 09/22/25 08:00 Nasal Cannula* 4 36 Total Intake and Output 09/21/25 09/21/25 09/22/25 15:00 23:00 07:00 Intake Total 800 ml 1020 ml 950 ml Output Total 1700 ml 1050 ml Balance 800 ml -680 ml -100 ml medications Current Medications Medications Dose Ordered Sig/Lobito Route Start Time Stop Time Status Last Admin Dose Admin Metronidazole 100 ml @ 100 mls/hr Q8HR IV 09/18/25 06:00 09/22/25 13:47 100 MLS/HR Labetalol HCl 5 mg Q2HPRN PRN IV 09/17/25 22:00 Acetaminophen/ Hydrocodone Bitart 1 tab Q4HP PRN PO 09/17/25 22:00 Ondansetron HCl 4 mg Q4HP PRN IV 09/17/25 22:00 09/20/25 09:18 4 MG Acetaminophen 650 mg Q6HP PRN PO 09/17/25 22:00 Morphine Sulfate 2 mg Q4HPRN PRN IV 09/17/25 22:00 09/19/25 02:12 2 MG Nitroglycerin 0.4 mg Q5MINP PRN SL 09/17/25 22:00 Morphine Sulfate 2 mg Q30M PRN IV 09/17/25 22:00 Azithromycin 250 ml @ 125 mls/hr DAILY@2200 IV 09/18/25 22:00 09/21/25 21:33 125 MLS/HR Atorvastatin Calcium 40 mg HS PO 09/19/25 22:00 09/21/25 21:35 40 MG Furosemide 20 mg DAILY PO 09/19/25 10:00 09/22/25 10:24 20 MG Sacubitril/ Valsartan 0.5 tab BID PO 09/19/25 22:00 09/22/25 10:20 0.5 TAB Carvedilol 3.125 mg Q12HR PO 09/19/25 22:00 09/22/25 10:21 3.125 MG Empaglifozin 10 mg DAILY PO 09/20/25 10:00 09/22/25 10:23 10 MG Amiodarone HCl 400 mg Q12HR PO 09/20/25 10:00 09/22/25 10:23 400 MG Lactated Ringer's 1,000 ml @ 100 mls/hr Q10H IV 09/20/25 11:30 09/22/25 12:42 100 MLS/HR Promethazine HCl 25 mg Q6HP PRN PO 09/20/25 11:45 09/20/25 12:40 25 MG Amiodarone HCl 250 ml @ 16.66 mls/ hr Q15H1M IV 09/20/25 22:30 UNV Pantoprazole Sodium 40 mg BID IV 09/21/25 22:00 09/22/25 10:18 40 MG Ceftriaxone Sodium 50 ml @ 100 mls/hr DAILY@09 IV 09/23/25 09:00 Enoxaparin Sodium 40 mg DAILY SC 09/23/25 10:00 objective GEN: NAD. Awake alert NG tube output 1300 mL dark greenish ABD: Soft, nontender, mildly distended with hypoactive bowel sounds. laboratory and microbiology Laboratory Tests 09/22/25 05:00 Test 09/22/25 05:00 Range/Units Serum Glucose 108 H 74-106 mg/dL Problems(with codes): (1) Ileus (2) Intractable nausea and vomiting (3) Intractable abdominal pain (4) Abnormal finding on CT scan (5) SBO (small bowel obstruction) Prognosis Plan Start clear liquid diet Clamp NG-tube in the morning and if he is tolerating clear liquid may be we could discontinue the NG tube Start physical therapy and ambulation as tolerated If the patient develops recurrent symptoms of ileus we will treat with IV Reglan Dietary Evaluation Review Comments: 1) Advance to cardiac diet when medically feasible 2) Collect HbA1c d/t elevated BG levels 3) Refer to outpatient RD for weight management 4) Follow-up with gastroenterology and cardiology 5) Continue to monitor I&O, labs, and skin integrity Expected Outcomes/Goals: 1) appetite and labs to improve 2) diet to advance 3) gradual wt loss 4) f/u in 3-5 days Plan discussed with: Patient, Other (Nurse Adonis) RENETTA CALDERA MD Sep 22, 2025 18:47
--- NOTE | 2025-09-22 23:41 | DVHPN2 ---
Progress Note - Dictate Date Seen: Sep 22, 2025 Medical Necessity Reason Pt with a Central, PICC or Fol: No Subjective Patient was seen and evaluated in follow up in the [facility]. Patient is able to get out of bed and use BSC. Patient is having BMs. WBC 13.1, NA 150, K 3.3, BUN 29, DRILL PRESS HAND 1.49. SBS is pending. vital signs Vital Sign Date Time Temp Pulse Resp B/P (MAP) Pulse Ox O2 Delivery O2 Flow Rate FiO2 09/22/25 12:00 93 09/22/25 12:00 99.8 19 146/76 (99) 95 99.8 09/22/25 08:00 Nasal Cannula* 4 36 Total Intake and Output 09/21/25 09/21/25 09/22/25 15:00 23:00 07:00 Intake Total 800 ml 1020 ml 950 ml Output Total 1700 ml 1050 ml Balance 800 ml -680 ml -100 ml medications Current Medications Medications Dose Ordered Sig/Lobito Route Start Time Stop Time Status Last Admin Dose Admin Metronidazole 100 ml @ 100 mls/hr Q8HR IV 09/18/25 06:00 09/22/25 13:47 100 MLS/HR Labetalol HCl 5 mg Q2HPRN PRN IV 09/17/25 22:00 Acetaminophen/ Hydrocodone Bitart 1 tab Q4HP PRN PO 09/17/25 22:00 Ondansetron HCl 4 mg Q4HP PRN IV 09/17/25 22:00 09/20/25 09:18 4 MG Acetaminophen 650 mg Q6HP PRN PO 09/17/25 22:00 Morphine Sulfate 2 mg Q4HPRN PRN IV 09/17/25 22:00 09/19/25 02:12 2 MG Nitroglycerin 0.4 mg Q5MINP PRN SL 09/17/25 22:00 Morphine Sulfate 2 mg Q30M PRN IV 09/17/25 22:00 Azithromycin 250 ml @ 125 mls/hr DAILY@2200 IV 09/18/25 22:00 09/21/25 21:33 125 MLS/HR Atorvastatin Calcium 40 mg HS PO 09/19/25 22:00 09/21/25 21:35 40 MG Furosemide 20 mg DAILY PO 09/19/25 10:00 09/22/25 10:24 20 MG Sacubitril/ Valsartan 0.5 tab BID PO 09/19/25 22:00 09/22/25 10:20 0.5 TAB Carvedilol 3.125 mg Q12HR PO 09/19/25 22:00 09/22/25 10:21 3.125 MG Empaglifozin 10 mg DAILY PO 09/20/25 10:00 09/22/25 10:23 10 MG Amiodarone HCl 400 mg Q12HR PO 09/20/25 10:00 09/22/25 10:23 400 MG Lactated Ringer's 1,000 ml @ 100 mls/hr Q10H IV 09/20/25 11:30 09/22/25 12:42 100 MLS/HR Promethazine HCl 25 mg Q6HP PRN PO 09/20/25 11:45 09/20/25 12:40 25 MG Amiodarone HCl 250 ml @ 16.66 mls/ hr Q15H1M IV 09/20/25 22:30 UNV Pantoprazole Sodium 40 mg BID IV 09/21/25 22:00 09/22/25 10:18 40 MG Ceftriaxone Sodium 50 ml @ 100 mls/hr DAILY@09 IV 09/23/25 09:00 Enoxaparin Sodium 40 mg DAILY SC 09/23/25 10:00 objective GENERAL: Alert and oriented x 3. No acute distress. EYES: PERRL, EOMI. Anicteric. HENT: Moist mucous membranes. LUNGS: Clear to auscultation bilaterally. CARDIOVASCULAR: Regular rate and rhythm. ABDOMEN: Soft, nontender and nondistended. EXTREMITIES: No edema. NEUROLOGIC: No focal neurological deficits. SKIN: Warm, dry. laboratory and microbiology Laboratory Tests 09/22/25 05:00 Test 09/22/25 05:00 Range/Units Serum Glucose 108 H 74-106 mg/dL Problem List Acute abdominal pain. Acute small bowel obstruction. Acute dehydration. Hypercholesterolemia. History of DVT on Coumadin. Nausea and vomiting. CHF exacerbation. Community-acquired pneumonia. Tachycardia. Assessment/Plan Continued all current supportive medical care. Morphine and [place] for pain management. Amiodarone. IV antibiotics as ordered. Coreg. Diuretics with Lasix. IV Labetalol for SBP > 150. Nitro SL. Entresto. GI and DVT prophylactics. Additional plan as per the hospital course. Critical care time of 45 minutes provided to include time spent evaluation of patient at bedside, when appropriate patient/family education for diagnosis, treatment plan, review of pertinent medical information and discussion of care with specialty providers and PCP Dietary Evaluation Review Comments: 1) Advance to cardiac diet when medically feasible 2) Collect HbA1c d/t elevated BG levels 3) Refer to outpatient RD for weight management 4) Follow-up with gastroenterology and cardiology 5) Continue to monitor I&O, labs, and skin integrity Expected Outcomes/Goals: 1) appetite and labs to improve 2) diet to advance 3) gradual wt loss 4) f/u in 3-5 days Plan discussed with: Patient MARGARET BORDEN MD Sep 22, 2025 15:17
[2025-09-23] VITALS (16 sets, daily range): BP systolic 112–157; BP diastolic 40–76; PULSE 60–79; RESP 12–21; TEMP 97.9–98.5; O2SAT 90–97
[2025-09-23 05:46] LABS: Hematocrit 43.5 % (41.0-53.0); Hemoglobin 14.4 g/dL (13.5-17.5); Mean Corpuscular Hemoglobin 28.8 pg (28.0-32.0); Mean Corpuscular Volume 87.0 fL (80.0-100.0); Nucleated Red Blood Cells % 0.0 %
[2025-09-23 05:58] LABS: INR 1.14 (0.9-1.15); Partial Thromboplastin Time 20.3 SEC (24.5-34.5); Prothrombin Time 11.9 sec (9.3-11.8)
[2025-09-23 06:03] LABS: Alanine Aminotransferase 13 U/L (7-40); Albumin 3.3 g/dL (3.2-4.8); Alkaline Phosphatase 58 U/L (46-116); Anion Gap 8 (5-15); BUN/Creatinine Ratio 17.2 (10.0-20.0); Blood Urea Nitrogen 20 mg/dL (9-23); Carbon Dioxide 29 mmol/L (20-31); Potassium 3.9 mmol/L (3.5-5.1)
[2025-09-23 06:06] LABS: Bilirubin, Total 2.1 mg/dL (0.2-1.0); Calcium 8.5 mg/dL (8.7-10.4); Chloride 115 mmol/L (98-107); Glucose 124 mg/dL (74-106); Magnesium 2.9 mg/dL (1.6-2.6); Sodium 152 mmol/L (136-145); Total Protein 5.7 g/dL (5.7-8.2)
[2025-09-23] MEDS: ENOXAPARIN SOD 40 MG/0.4 ML SYRINGE SC SCH (09:40)
--- NOTE | 2025-09-23 10:37 | DVHPN2 ---
Reviewed: Care Plan, H&P, Labs, Medications, Previous Orders, Radiology Changes from previous H/P or p: No Changes Eyes: No Pain, No Vision change, No Conjunctivae inflammation, No Eyelid inflammation, No Other, No Redness ENT: No Ear pain, No Ear discharge, No Nose pain, No Nose discharge, No Nose congestion, No Mouth pain, No Mouth swelling, No Throat pain, No Throat swelling, No Other Cardiovascular: No Chest Pain, No Palpitations, No Orthopnea, No Paroxysmal Noc. Dyspnea, No Edema, No Lt Headedness, No Other Respiratory: No Cough, No Dry, No Shortness of breath, No SOB with excertion, No Wheezing, No Hemoptysis, No Pleuritic Pain, No Sputum, No Other Gastrointestinal: Nausea, Vomiting, Abdominal Pain; No Diarrhea, No Constipation, No Melena, No Hematochezia, No Other Genitourinary: No Dysuria, No Frequency, No Incontinence, No Hematuria, No Retention, No Other Musculoskeletal: No other, No neck pain, No shoulder pain, No arm pain, No back pain, No hand pain, No leg pain, No foot pain Skin: No Rash, No Lesions, No Jaundice, No Bruising, No Other Objective Vitals Vital Signs Date Time Temp Pulse Resp B/P (MAP) Pulse Ox O2 Delivery O2 Flow Rate FiO2 09/23/25 09:39 132/60 09/23/25 09:38 62 09/23/25 08:00 98.5 18 95 98.5 09/23/25 07:54 Nasal Cannula* 4 36 Intake/Output Intake and Output 09/23/25 07:00 Intake Total 3790 ml Output Total 1925 ml Balance 1865 ml Intake Oral 690 ml IV Total 3100 ml Output Urine Total 1350 ml Gastric Drainage Total 575 ml # Bowel Movements 7 Medications Current Medications Medications Dose Ordered Sig/Lobito Route Start Time Stop Time Status Last Admin Dose Admin Metronidazole 100 ml @ 100 mls/hr Q8HR IV 09/18/25 06:00 09/23/25 05:39 100 MLS/HR Labetalol HCl 5 mg Q2HPRN PRN IV 09/17/25 22:00 Acetaminophen/ Hydrocodone Bitart 1 tab Q4HP PRN PO 09/17/25 22:00 Ondansetron HCl 4 mg Q4HP PRN IV 09/17/25 22:00 09/20/25 09:18 4 MG Acetaminophen 650 mg Q6HP PRN PO 09/17/25 22:00 Morphine Sulfate 2 mg Q4HPRN PRN IV 09/17/25 22:00 09/19/25 02:12 2 MG Nitroglycerin 0.4 mg Q5MINP PRN SL 09/17/25 22:00 Morphine Sulfate 2 mg Q30M PRN IV 09/17/25 22:00 Azithromycin 250 ml @ 125 mls/hr DAILY@2200 IV 09/18/25 22:00 09/22/25 21:42 125 MLS/HR Atorvastatin Calcium 40 mg HS PO 09/19/25 22:00 09/22/25 21:43 40 MG Furosemide 20 mg DAILY PO 09/19/25 10:00 09/23/25 09:39 20 MG Sacubitril/ Valsartan 0.5 tab BID PO 09/19/25 22:00 09/23/25 09:39 0.5 TAB Carvedilol 3.125 mg Q12HR PO 09/19/25 22:00 09/23/25 09:38 3.125 MG Empaglifozin 10 mg DAILY PO 09/20/25 10:00 09/23/25 09:39 10 MG Amiodarone HCl 400 mg Q12HR PO 09/20/25 10:00 09/23/25 09:38 400 MG Lactated Ringer's 1,000 ml @ 100 mls/hr Q10H IV 09/20/25 11:30 09/22/25 23:18 100 MLS/HR Promethazine HCl 25 mg Q6HP PRN PO 09/20/25 11:45 09/20/25 12:40 25 MG Amiodarone HCl 250 ml @ 16.66 mls/ hr Q15H1M IV 09/20/25 22:30 UNV Pantoprazole Sodium 40 mg BID IV 09/21/25 22:00 09/23/25 09:37 40 MG Ceftriaxone Sodium 50 ml @ 100 mls/hr DAILY@09 IV 09/23/25 09:00 09/23/25 09:37 100 MLS/HR Enoxaparin Sodium 40 mg DAILY SC 09/23/25 10:00 09/23/25 09:40 40 MG Laboratory Results Laboratory Tests 09/23/25 05:12 Chemistry Test 10/29/25 05:12 Albumin 3.3 g/dL (3.2-4.8) Calcium Level 8.5 mg/dL (8.7-10.4) L Magnesium Level 2.9 mg/dL (1.6-2.6) H Total Protein 5.7 g/dL (5.7-8.2) Coagulation Test 09/23/25 05:12 Prothrombin Time 11.9 sec (9.3-11.8) H Prothrombin Time INR 1.14 (0.9-1.15) Activated Partial Thromboplast Time 20.3 SEC (24.5-34.5) L LFT Test 09/23/25 05:12 Alanine Aminotransferase (ALT) 13 U/L (7-40) Alkaline Phosphatase 58 U/L (46-116) Aspartate Amino Transferase (AST) 18 U/L (13-40) Total Bilirubin 2.1 mg/dL (0.2-1.0) H Urinalysis Test 09/17/25 22:17 Urine Color Yellow (Yellow) Urine Clarity Clear (Clear) Urine pH 5.5 (5.0-9.0) Urine Specific [place] 1.039 (1.001-1.035) Urine Protein Negative (Negative) Urine Ketones 1+ (Negative) H Urine Blood Negative /uL (Negative) Urine Nitrite Negative (Negative) Urine Bilirubin Negative (Negative) Urine Urobilinogen Normal mg/dL (Negative) Urine Leukocyte Esterase Negative /uL (Negative) Urine RBC 2 /hpf (0 - 3) Urine Microscopic WBC 2 /HPF (0-3) Urine Squamous Epithelial Cells None seen /hpf (<5) Urine Bacteria None seen /hpf (None Seen) Urine Glucose 4+ mg/dL (Normal) H Microbiology Microbiology Date/Time Source Procedure Growth Status 09/17/25 20:10 Blood Blood Culture - Final Complete Labs and/or images reviewed: Labs reviewed by me, Image(s) reviewed by me Assessment/Plan Assessment/Plan Acute abdominal pain Acute small bowel obstruction: NPO: Consult by surgeon Dr. Kirby appreciated, small-bowel series shows no obstruction, started on clear liquid diet Acute dehydration: IV fluids Hypercholesterolemia History of DVT on Coumadin ; patient has bloody emesis, DC Coumadin in anticipation of possible endoscopy Nausea and vomiting: Zofran Compazine CHF exacerbation: Lasix Coreg Entresto, Possible community-acquired pneumonia Gram-positive versus Gram-negative: Rocephin azithromycin, Flagyl Tachycardia: Labetalol, cardiology consult by Dr. Oconnor appreciated Blood Cultures negative CHF exacerbation Time spent 50 minutes Advanced care planning time 20 minutes Patient is full code Clear liquid diet Ambulate PCP Dr Holland Patient lives alone in a trailer Son Ronen Guzman who lives in [place] [phone] at bedside Pts girl friend Adry Pts girl Friend Adry at bed side. Plan discussed with: Patient My Orders Orders - BOLIVAR TORRES MD Procedure Category Date Status Time Ceftriaxone 1gm/50ml PHA 09/23/25 In Process (Rocephin) 09:00 Enoxaparin Sodium PHA 09/23/25 In Process (Lovenox) 10:00 Pt Request For Service PT 09/23/25 Logged 07:26 Communication Order ORDERS 09/23/25 Transmitted 07:26 Titrate Oxygen TYRONE 09/23/25 In Process 07:26 Date of Service: Sep 23, 2025 Billing Provider: BOLIVAR TORRES MD Common Visit Codes: [id number] INP/OBS CARE(HIGH) Secondary Visit Codes: [id number] CARE PLAN 30 MINUTES BOLIVAR TORRES MD Sep 23, 2025 10:37
[2025-09-23] MEDS: SOD CHL 0.45% 1,000 ML IV SCH (11:31)
--- NOTE | 2025-09-23 14:03 | DVHPN2 ---
Progress Note - Dictate Date Seen: Sep 23, 2025 Medical Necessity Reason Pt with a Central, PICC or Fol: No Subjective Patient seen at bedside, feels better Multiple bowel movements recorded Patient has been started on clear liquid diet His small-bowel follow-through series is negative for any obstruction NG tube output was 350 mL and significantly decreased vital signs Vital Sign Date Time Temp Pulse Resp B/P (MAP) Pulse Ox O2 Delivery O2 Flow Rate FiO2 09/23/25 12:24 98.1 70 18 127/68 (87) 97 98.1 09/23/25 07:54 Nasal Cannula* 4 36 Total Intake and Output 09/22/25 09/22/25 09/23/25 15:00 23:00 07:00 Intake Total 1050 ml 1165 ml 1575 ml Output Total 1075 ml 850 ml Balance 1050 ml 90 ml 725 ml medications Current Medications Medications Dose Ordered Sig/Lobito Route Start Time Stop Time Status Last Admin Dose Admin Metronidazole 100 ml @ 100 mls/hr Q8HR IV 09/18/25 06:00 09/23/25 05:39 100 MLS/HR Labetalol HCl 5 mg Q2HPRN PRN IV 09/17/25 22:00 Acetaminophen/ Hydrocodone Bitart 1 tab Q4HP PRN PO 09/17/25 22:00 Ondansetron HCl 4 mg Q4HP PRN IV 09/17/25 22:00 09/20/25 09:18 4 MG Acetaminophen 650 mg Q6HP PRN PO 09/17/25 22:00 Morphine Sulfate 2 mg Q4HPRN PRN IV 09/17/25 22:00 09/19/25 02:12 2 MG Nitroglycerin 0.4 mg Q5MINP PRN SL 09/17/25 22:00 Morphine Sulfate 2 mg Q30M PRN IV 09/17/25 22:00 Azithromycin 250 ml @ 125 mls/hr DAILY@2200 IV 09/18/25 22:00 09/22/25 21:42 125 MLS/HR Atorvastatin Calcium 40 mg HS PO 09/19/25 22:00 09/22/25 21:43 40 MG Furosemide 20 mg DAILY PO 09/19/25 10:00 09/23/25 09:39 20 MG Sacubitril/ Valsartan 0.5 tab BID PO 09/19/25 22:00 09/23/25 09:39 0.5 TAB Carvedilol 3.125 mg Q12HR PO 09/19/25 22:00 09/23/25 09:38 3.125 MG Empaglifozin 10 mg DAILY PO 09/20/25 10:00 09/23/25 09:39 10 MG Amiodarone HCl 400 mg Q12HR PO 09/20/25 10:00 09/23/25 09:38 400 MG Promethazine HCl 25 mg Q6HP PRN PO 09/20/25 11:45 09/20/25 12:40 25 MG Amiodarone HCl 250 ml @ 16.66 mls/ hr Q15H1M IV 09/20/25 22:30 UNV Pantoprazole Sodium 40 mg BID IV 09/21/25 22:00 09/23/25 09:37 40 MG Ceftriaxone Sodium 50 ml @ 100 mls/hr DAILY@09 IV 09/23/25 09:00 09/23/25 09:37 100 MLS/HR Enoxaparin Sodium 40 mg DAILY SC 09/23/25 10:00 09/23/25 09:40 40 MG Sodium Chloride 1,000 ml @ 100 mls/hr Q10H IV 09/23/25 10:45 09/23/25 11:31 100 MLS/HR objective GEN: NAD. Awake alert NG tube output 1300 mL dark greenish ABD: Soft, nontender, mildly distended with hypoactive bowel sounds. laboratory and microbiology Laboratory Tests 09/23/25 05:12 Test 09/23/25 05:12 Range/Units Serum Glucose 124 H 74-106 mg/dL Problems(with codes): (1) Ileus (2) Constipation (3) Intractable nausea and vomiting Prognosis Plan Clamp NG-tube for 4 hours If the patient has no further nausea vomiting then okay to DC NG-tube Continue clear liquid diet Reglan 5 mg IV q.8 hours Discuss outpatient elective colonoscopy once medically stabilized Dietary Evaluation Review Comments: 1) Advance to cardiac diet when medically feasible 2) Collect HbA1c d/t elevated BG levels 3) Refer to outpatient RD for weight management 4) Follow-up with gastroenterology and cardiology 5) Continue to monitor I&O, labs, and skin integrity Expected Outcomes/Goals: 1) appetite and labs to improve 2) diet to advance 3) gradual wt loss 4) f/u in 3-5 days Plan discussed with: Patient RENETTA CALDERA MD Sep 23, 2025 14:03
--- NOTE | 2025-09-23 23:58 | DVHPN2 ---
Progress Note - Dictate Date Seen: Sep 23, 2025 Medical Necessity Reason Pt with a Central, PICC or Fol: No Subjective Patient was seen and evaluated in follow up. Patient was downgraded to telemetry. Per RN, patient is having watery BMs. WBC 11.2, NA 152, CL 115, CA 8.5. SBS shows normal small bowel series. Telemetry reviewed. vital signs Vital Sign Date Time Temp Pulse Resp B/P (MAP) Pulse Ox O2 Delivery O2 Flow Rate FiO2 09/23/25 12:24 98.1 70 18 127/68 (87) 97 98.1 09/23/25 07:54 Nasal Cannula* 4 36 Total Intake and Output 09/22/25 09/22/25 09/23/25 15:00 23:00 07:00 Intake Total 1050 ml 1165 ml 1575 ml Output Total 1075 ml 850 ml Balance 1050 ml 90 ml 725 ml medications Current Medications Medications Dose Ordered Sig/Lobito Route Start Time Stop Time Status Last Admin Dose Admin Metronidazole 100 ml @ 100 mls/hr Q8HR IV 09/18/25 06:00 09/23/25 05:39 100 MLS/HR Labetalol HCl 5 mg Q2HPRN PRN IV 09/17/25 22:00 Acetaminophen/ Hydrocodone Bitart 1 tab Q4HP PRN PO 09/17/25 22:00 Ondansetron HCl 4 mg Q4HP PRN IV 09/17/25 22:00 09/20/25 09:18 4 MG Acetaminophen 650 mg Q6HP PRN PO 09/17/25 22:00 Morphine Sulfate 2 mg Q4HPRN PRN IV 09/17/25 22:00 09/19/25 02:12 2 MG Nitroglycerin 0.4 mg Q5MINP PRN SL 09/17/25 22:00 Morphine Sulfate 2 mg Q30M PRN IV 09/17/25 22:00 Azithromycin 250 ml @ 125 mls/hr DAILY@2200 IV 09/18/25 22:00 09/22/25 21:42 125 MLS/HR Atorvastatin Calcium 40 mg HS PO 09/19/25 22:00 09/22/25 21:43 40 MG Furosemide 20 mg DAILY PO 09/19/25 10:00 09/23/25 09:39 20 MG Sacubitril/ Valsartan 0.5 tab BID PO 09/19/25 22:00 09/23/25 09:39 0.5 TAB Carvedilol 3.125 mg Q12HR PO 09/19/25 22:00 09/23/25 09:38 3.125 MG Empaglifozin 10 mg DAILY PO 09/20/25 10:00 09/23/25 09:39 10 MG Amiodarone HCl 400 mg Q12HR PO 09/20/25 10:00 09/23/25 09:38 400 MG Promethazine HCl 25 mg Q6HP PRN PO 09/20/25 11:45 09/20/25 12:40 25 MG Amiodarone HCl 250 ml @ 16.66 mls/ hr Q15H1M IV 09/20/25 22:30 UNV Pantoprazole Sodium 40 mg BID IV 09/21/25 22:00 09/23/25 09:37 40 MG Ceftriaxone Sodium 50 ml @ 100 mls/hr DAILY@09 IV 09/23/25 09:00 09/23/25 09:37 100 MLS/HR Enoxaparin Sodium 40 mg DAILY SC 09/23/25 10:00 09/23/25 09:40 40 MG Sodium Chloride 1,000 ml @ 100 mls/hr Q10H IV 09/23/25 10:45 09/23/25 11:31 100 MLS/HR objective GENERAL: Alert and oriented x 3. No acute distress. EYES: PERRL, EOMI. Anicteric. HENT: Moist mucous membranes. LUNGS: Clear to auscultation bilaterally. CARDIOVASCULAR: Regular rate and rhythm. ABDOMEN: Soft, nontender and nondistended. EXTREMITIES: No edema. NEUROLOGIC: No focal neurological deficits. SKIN: Warm, dry. laboratory and microbiology Laboratory Tests 09/23/25 05:12 Test 09/23/25 05:12 Range/Units Serum Glucose 124 H 74-106 mg/dL Problem List Acute abdominal pain. Acute small bowel obstruction. Acute dehydration. Hypercholesterolemia. History of DVT on Coumadin. Nausea and vomiting. CHF exacerbation. Community-acquired pneumonia. Tachycardia. Assessment/Plan Continued all current supportive medical care. Morphine and [place] for pain management. Amiodarone. IV antibiotics as ordered. Coreg. Diuretics with Lasix. IV Labetalol for SBP > 150. Nitro SL. Entresto. DVT and GI prophylactics. Additional plan as per the hospital course. Dietary Evaluation Review Comments: 1) Advance to cardiac diet when medically feasible 2) Collect HbA1c d/t elevated BG levels 3) Refer to outpatient RD for weight management 4) Follow-up with gastroenterology and cardiology 5) Continue to monitor I&O, labs, and skin integrity Expected Outcomes/Goals: 1) appetite and labs to improve 2) diet to advance 3) gradual wt loss 4) f/u in 3-5 days Plan discussed with: Patient MARGARET BORDEN MD Sep 23, 2025 12:42
[2025-09-24] VITALS (7 sets, daily range): BP systolic 130–158; BP diastolic 67–100; PULSE 61–89; RESP 18–20; TEMP 98–99.1; O2SAT 92–95
[2025-09-24 06:43] LABS: Hematocrit 42.2 % (41.0-53.0); Hemoglobin 14.0 g/dL (13.5-17.5); Mean Corpuscular Hemoglobin 29.0 pg (28.0-32.0); Mean Corpuscular Volume 87.2 fL (80.0-100.0); Nucleated Red Blood Cells % 0.1 %
[2025-09-24 07:01] LABS: Alanine Aminotransferase 10 U/L (7-40); Alkaline Phosphatase 55 U/L (46-116); Anion Gap 9 (5-15); Carbon Dioxide 28 mmol/L (20-31)
[2025-09-24 07:02] LABS: BUN/Creatinine Ratio 13.6 (10.0-20.0); Blood Urea Nitrogen 14 mg/dL (9-23); Glucose 95 mg/dL (74-106)
[2025-09-24 07:03] LABS: Calcium 8.0 mg/dL (8.7-10.4); Chloride 110 mmol/L (98-107); Magnesium 2.3 mg/dL (1.6-2.6); Potassium 3.2 mmol/L (3.5-5.1); Sodium 147 mmol/L (136-145); Total Protein 5.5 g/dL (5.7-8.2)
[2025-09-24 07:04] LABS: Albumin 3.2 g/dL (3.2-4.8)
[2025-09-24 07:08] LABS: Bilirubin, Total 1.9 mg/dL (0.2-1.0)
[2025-09-24 07:14] LABS: INR 1.18 (0.9-1.15); Partial Thromboplastin Time 26.8 SEC (24.5-34.5); Prothrombin Time 12.3 sec (9.3-11.8)
--- NOTE | 2025-09-24 07:43 | DVHPN2 ---
Reviewed: Care Plan, H&P, Labs, Medications, Previous Orders, Radiology Changes from previous H/P or p: No Changes Eyes: No Pain, No Vision change, No Conjunctivae inflammation, No Eyelid inflammation, No Other, No Redness ENT: No Ear pain, No Ear discharge, No Nose pain, No Nose discharge, No Nose congestion, No Mouth pain, No Mouth swelling, No Throat pain, No Throat swelling, No Other Cardiovascular: No Chest Pain, No Palpitations, No Orthopnea, No Paroxysmal Noc. Dyspnea, No Edema, No Lt Headedness, No Other Respiratory: No Cough, No Dry, No Shortness of breath, No SOB with excertion, No Wheezing, No Hemoptysis, No Pleuritic Pain, No Sputum, No Other Gastrointestinal: Nausea, Vomiting, Abdominal Pain; No Diarrhea, No Constipation, No Melena, No Hematochezia, No Other Genitourinary: No Dysuria, No Frequency, No Incontinence, No Hematuria, No Retention, No Other Musculoskeletal: No other, No neck pain, No shoulder pain, No arm pain, No back pain, No hand pain, No leg pain, No foot pain Skin: No Rash, No Lesions, No Jaundice, No Bruising, No Other Objective Vitals Vital Signs Date Time Temp Pulse Resp B/P (MAP) Pulse Ox O2 Delivery O2 Flow Rate FiO2 09/24/25 06:35 89 137/100 (112) 09/24/25 05:00 99.1 18 92 99.1 09/23/25 20:00 Nasal Cannula* 4 36 Intake/Output Intake and Output 09/24/25 07:00 Intake Total 3020 ml Output Total 1325 ml Balance 1695 ml Intake Oral 2120 ml IV Total 900 ml Output Urine Total 1325 ml Medications Current Medications Medications Dose Ordered Sig/Lobito Route Start Time Stop Time Status Last Admin Dose Admin Metronidazole 100 ml @ 100 mls/hr Q8HR IV 09/18/25 06:00 09/24/25 05:31 100 MLS/HR Labetalol HCl 5 mg Q2HPRN PRN IV 09/17/25 22:00 Acetaminophen/ Hydrocodone Bitart 1 tab Q4HP PRN PO 09/17/25 22:00 Ondansetron HCl 4 mg Q4HP PRN IV 09/17/25 22:00 09/20/25 09:18 4 MG Acetaminophen 650 mg Q6HP PRN PO 09/17/25 22:00 Morphine Sulfate 2 mg Q4HPRN PRN IV 09/17/25 22:00 09/19/25 02:12 2 MG Nitroglycerin 0.4 mg Q5MINP PRN SL 09/17/25 22:00 Morphine Sulfate 2 mg Q30M PRN IV 09/17/25 22:00 Azithromycin 250 ml @ 125 mls/hr DAILY@2200 IV 09/18/25 22:00 09/23/25 23:57 125 MLS/HR Atorvastatin Calcium 40 mg HS PO 09/19/25 22:00 09/23/25 21:42 40 MG Furosemide 20 mg DAILY PO 09/19/25 10:00 09/23/25 09:39 20 MG Sacubitril/ Valsartan 0.5 tab BID PO 09/19/25 22:00 09/23/25 23:56 0.5 TAB Carvedilol 3.125 mg Q12HR PO 09/19/25 22:00 09/23/25 21:42 3.125 MG Empaglifozin 10 mg DAILY PO 09/20/25 10:00 09/23/25 09:39 10 MG Amiodarone HCl 400 mg Q12HR PO 09/20/25 10:00 09/23/25 21:41 400 MG Promethazine HCl 25 mg Q6HP PRN PO 09/20/25 11:45 09/20/25 12:40 25 MG Amiodarone HCl 250 ml @ 16.66 mls/ hr Q15H1M IV 09/20/25 22:30 UNV Pantoprazole Sodium 40 mg BID IV 09/21/25 22:00 09/23/25 22:08 40 MG Ceftriaxone Sodium 50 ml @ 100 mls/hr DAILY@09 IV 09/23/25 09:00 09/23/25 09:37 100 MLS/HR Enoxaparin Sodium 40 mg DAILY SC 09/23/25 10:00 09/23/25 09:40 40 MG Sodium Chloride 1,000 ml @ 100 mls/hr Q10H IV 09/23/25 10:45 09/24/25 05:32 100 MLS/HR Laboratory Results Laboratory Tests 09/24/25 05:28 Chemistry Test 09/24/25 05:28 Albumin 3.2 g/dL (3.2-4.8) Calcium Level 8.0 mg/dL (8.7-10.4) L Magnesium Level 2.3 mg/dL (1.6-2.6) Total Protein 5.5 g/dL (5.7-8.2) L Coagulation Test 09/24/25 05:28 Prothrombin Time 12.3 sec (9.3-11.8) H Prothrombin Time INR 1.18 (0.9-1.15) H Activated Partial Thromboplast Time 26.8 SEC (24.5-34.5) LFT Test 09/24/25 05:28 Alanine Aminotransferase (ALT) 10 U/L (7-40) Alkaline Phosphatase 55 U/L (46-116) Aspartate Amino Transferase (AST) 17 U/L (13-40) Total Bilirubin 1.9 mg/dL (0.2-1.0) H Urinalysis Test 09/17/25 22:17 Urine Color Yellow (Yellow) Urine Clarity Clear (Clear) Urine pH 5.5 (5.0-9.0) Urine Specific [place] 1.039 (1.001-1.035) Urine Protein Negative (Negative) Urine Ketones 1+ (Negative) H Urine Blood Negative /uL (Negative) Urine Nitrite Negative (Negative) Urine Bilirubin Negative (Negative) Urine Urobilinogen Normal mg/dL (Negative) Urine Leukocyte Esterase Negative /uL (Negative) Urine RBC 2 /hpf (0 - 3) Urine Microscopic WBC 2 /HPF (0-3) Urine Squamous Epithelial Cells None seen /hpf (<5) Urine Bacteria None seen /hpf (None Seen) Urine Glucose 4+ mg/dL (Normal) H Microbiology Microbiology Date/Time Source Procedure Growth Status 09/17/25 20:10 Blood Blood Culture - Final Complete Labs and/or images reviewed: Labs reviewed by me, Image(s) reviewed by me Assessment/Plan Assessment/Plan Acute abdominal pain Acute small bowel obstruction: Consult by surgeon Dr. Kirby appreciated, small- bowel series shows no obstruction, started on clear liquid diet Acute dehydration: IV fluids Hypercholesterolemia History of DVT on Coumadin ; patient has bloody emesis, DC Coumadin in anticipation of possible endoscopy Nausea and vomiting: Zofran Compazine CHF exacerbation: Lasix Coreg Entresto, Possible community-acquired pneumonia Gram-positive versus Gram-negative: Rocephin azithromycin, Flagyl Tachycardia: Labetalol, cardiology consult by Dr. Oconnor appreciated Blood Cultures negative Acute hypokalemia potassium 3.2: Replace potassium CHF exacerbation Time spent 50 minutes Advanced care planning time 20 minutes Patient is full code Clear liquid diet Ambulate PCP Dr Holland Patient lives alone in a trailer Son Ronen Guzman who lives in [place] [phone] at bedside Pts girl Friend Adry at bed side. Patient may need [facility] facility [facility] for rehab Plan discussed with: Patient My Orders Orders - BOLIVAR TORRES MD Procedure Category Date Status Time Sod Chl 0.45% (Sodium PHA 09/23/25 In Process Chloride 0.45% Via 10:45 Transfer Orders XFER 09/23/25 Transmitted 10:38 Date of Service: Sep 24, 2025 Billing Provider: BOLIVAR TORRES MD Common Visit Codes: [id number] INP/OBS CARE(HIGH) BOLIVAR TORRES MD Sep 24, 2025 07:43
[2025-09-24] MEDS: POTASSIUM EFFERVESENT TAB 25 MEQ PO ONE (13:15)
--- NOTE | 2025-09-25 11:05 | MEDREC ---
[facility] Intervention Section I [facility] Intervention: Review courses of therapy (CONSIDER CHANGING AZITHROMYCIN TO DOXYCYCLINE, PT QTc = 560) STU COELLO PHARMACIST Sep 24, 2025 09:57
--- NOTE | 2025-09-25 11:06 | DVHPN2 ---
Progress Note - Dictate Date Seen: Sep 24, 2025 Medical Necessity Reason Pt with a Central, PICC or Fol: No Subjective Patient seen at bedside, feels better ; sleeping Multiple bowel movements recorded Tolerating clear liquid diet His small-bowel follow-through series is negative for any obstruction NG tube was removed vital signs Vital Sign Date Time Temp Pulse Resp B/P (MAP) Pulse Ox O2 Delivery O2 Flow Rate FiO2 09/24/25 09:15 147/67 09/24/25 09:14 61 09/24/25 05:00 99.1 18 92 99.1 09/23/25 20:00 Nasal Cannula* 4 36 Total Intake and Output 09/23/25 09/23/25 09/24/25 15:00 23:00 07:00 Intake Total 930 ml 1040 ml 1050 ml Output Total 825 ml 500 ml Balance 930 ml 215 ml 550 ml medications Current Medications Medications Dose Ordered Sig/Lobito Route Start Time Stop Time Status Last Admin Dose Admin Metronidazole 100 ml @ 100 mls/hr Q8HR IV 09/18/25 06:00 09/24/25 05:31 100 MLS/HR Labetalol HCl 5 mg Q2HPRN PRN IV 09/17/25 22:00 Acetaminophen/ Hydrocodone Bitart 1 tab Q4HP PRN PO 09/17/25 22:00 Ondansetron HCl 4 mg Q4HP PRN IV 09/17/25 22:00 09/20/25 09:18 4 MG Acetaminophen 650 mg Q6HP PRN PO 09/17/25 22:00 Morphine Sulfate 2 mg Q4HPRN PRN IV 09/17/25 22:00 09/19/25 02:12 2 MG Nitroglycerin 0.4 mg Q5MINP PRN SL 09/17/25 22:00 Morphine Sulfate 2 mg Q30M PRN IV 09/17/25 22:00 Azithromycin 250 ml @ 125 mls/hr DAILY@2200 IV 09/18/25 22:00 09/23/25 23:57 125 MLS/HR Atorvastatin Calcium 40 mg HS PO 09/19/25 22:00 09/23/25 21:42 40 MG Furosemide 20 mg DAILY PO 09/19/25 10:00 09/24/25 09:15 20 MG Sacubitril/ Valsartan 0.5 tab BID PO 09/19/25 22:00 09/24/25 09:14 0.5 TAB Carvedilol 3.125 mg Q12HR PO 09/19/25 22:00 09/24/25 09:14 3.125 MG Empaglifozin 10 mg DAILY PO 09/20/25 10:00 09/24/25 09:15 10 MG Amiodarone HCl 400 mg Q12HR PO 09/20/25 10:00 09/24/25 09:14 400 MG Promethazine HCl 25 mg Q6HP PRN PO 09/20/25 11:45 09/20/25 12:40 25 MG Amiodarone HCl 250 ml @ 16.66 mls/ hr Q15H1M IV 09/20/25 22:30 UNV Pantoprazole Sodium 40 mg BID IV 09/21/25 22:00 09/24/25 09:07 40 MG Ceftriaxone Sodium 50 ml @ 100 mls/hr DAILY@09 IV 09/23/25 09:00 09/24/25 09:16 100 MLS/HR Enoxaparin Sodium 40 mg DAILY SC 09/23/25 10:00 09/24/25 09:12 40 MG Sodium Chloride 1,000 ml @ 100 mls/hr Q10H IV 09/23/25 10:45 09/24/25 05:32 100 MLS/HR objective GEN: NAD. Awake alert, sleepy ABD: Soft, nontender, mildly distended with hypoactive bowel sounds. laboratory and microbiology Laboratory Tests 09/24/25 05:28 Test 09/24/25 05:28 Range/Units Serum Glucose 95 74-106 mg/dL Problems(with codes): (1) Ileus (2) Constipation (3) Intractable nausea and vomiting Prognosis Plan Advance to full liquid diet and then soft mechanical as tolerated Patient stated he had a negative colonoscopy about two years ago Ambulate patient physical therapy supportive care Outpatient follow up with GI as needed Dietary Evaluation Review Comments: 1) Advance to cardiac diet when medically feasible 2) Collect HbA1c d/t elevated BG levels 3) Refer to outpatient RD for weight management 4) Follow-up with gastroenterology and cardiology 5) Continue to monitor I&O, labs, and skin integrity Expected Outcomes/Goals: 1) appetite and labs to improve 2) diet to advance 3) gradual wt loss 4) f/u in 3-5 days Plan discussed with: Patient, Other (Nurse) RENETTA CALDERA MD Sep 24, 2025 10:10
--- NOTE | 2025-09-25 11:26 | DVHPN2 ---
Progress Note - Dictate Date Seen: Sep 24, 2025 (Late entryPt seen at 9.30 am) Medical Necessity Reason Pt with a Central, PICC or Fol: No Subjective Patient seen at bedside, feels better ; Multiple bowel movements recorded Tolerating full liquid diet His small-bowel follow-through series is negative for any obstruction NG tube was removed vital signs Vital Sign Date Time Temp Pulse Resp B/P (MAP) Pulse Ox O2 Delivery O2 Flow Rate FiO2 09/24/25 17:00 98.4 67 20 130/72 (91) 94 98.4 09/24/25 07:55 Nasal Cannula* 3 32 Total Intake and Output 09/23/25 09/23/25 09/24/25 15:00 23:00 07:00 Intake Total 930 ml 1040 ml 1050 ml Output Total 825 ml 500 ml Balance 930 ml 215 ml 550 ml medications Current Medications Medications Dose Ordered Sig/Lobito Route Start Time Stop Time Status Last Admin Dose Admin Amiodarone HCl 250 ml @ 16.66 mls/ hr Q15H1M IV 09/20/25 22:30 UNV objective GEN: NAD. Awake alert, sleepy ABD: Soft, nontender, mildly distended with hypoactive bowel sounds. laboratory and microbiology Laboratory Tests 09/24/25 05:28 Test 09/24/25 05:28 Range/Units Serum Glucose 95 74-106 mg/dL Problems(with codes): (1) Ileus (2) Constipation (3) Intractable nausea and vomiting Prognosis PLAN Advance CARYN Ambulate PT Discharge planning Dietary Evaluation Review Comments: 1) Advance to cardiac diet when medically feasible 2) Collect HbA1c d/t elevated BG levels 3) Refer to outpatient RD for weight management 4) Follow-up with gastroenterology and cardiology 5) Continue to monitor I&O, labs, and skin integrity Expected Outcomes/Goals: 1) appetite and labs to improve 2) diet to advance 3) gradual wt loss 4) f/u in 3-5 days Plan discussed with: Other (Nurse and Dr Bee) RENETTA CALDERA MD Sep 24, 2025 22:02
--- NOTE | 2025-09-25 11:30 | DVHPN2 ---
Progress Note - Dictate Date Seen: Sep 24, 2025 Medical Necessity Reason Pt with a Central, PICC or Fol: No Subjective Patient was seen and evaluated in follow up. Patient is tolerating current diet. NG tube output: 350 mL and significantly decreased. NA 147, K 3.2. Telemetry reviewed. vital signs Vital Sign Date Time Temp Pulse Resp B/P (MAP) Pulse Ox O2 Delivery O2 Flow Rate FiO2 09/24/25 10:14 71 09/24/25 09:15 147/67 09/24/25 09:00 98.7 20 92 98.7 09/23/25 20:00 Nasal Cannula* 4 36 Total Intake and Output 09/23/25 09/23/25 09/24/25 15:00 23:00 07:00 Intake Total 930 ml 1040 ml 1050 ml Output Total 825 ml 500 ml Balance 930 ml 215 ml 550 ml medications Current Medications Medications Dose Ordered Sig/Lobito Route Start Time Stop Time Status Last Admin Dose Admin Metronidazole 100 ml @ 100 mls/hr Q8HR IV 09/18/25 06:00 09/24/25 05:31 100 MLS/HR Labetalol HCl 5 mg Q2HPRN PRN IV 09/17/25 22:00 Acetaminophen/ Hydrocodone Bitart 1 tab Q4HP PRN PO 09/17/25 22:00 Ondansetron HCl 4 mg Q4HP PRN IV 09/17/25 22:00 09/20/25 09:18 4 MG Acetaminophen 650 mg Q6HP PRN PO 09/17/25 22:00 Morphine Sulfate 2 mg Q4HPRN PRN IV 09/17/25 22:00 09/19/25 02:12 2 MG Nitroglycerin 0.4 mg Q5MINP PRN SL 09/17/25 22:00 Morphine Sulfate 2 mg Q30M PRN IV 09/17/25 22:00 Azithromycin 250 ml @ 125 mls/hr DAILY@2200 IV 09/18/25 22:00 09/23/25 23:57 125 MLS/HR Atorvastatin Calcium 40 mg HS PO 09/19/25 22:00 09/23/25 21:42 40 MG Furosemide 20 mg DAILY PO 09/19/25 10:00 09/24/25 09:15 20 MG Sacubitril/ Valsartan 0.5 tab BID PO 09/19/25 22:00 09/24/25 09:14 0.5 TAB Carvedilol 3.125 mg Q12HR PO 09/19/25 22:00 09/24/25 09:14 3.125 MG Empaglifozin 10 mg DAILY PO 09/20/25 10:00 09/24/25 09:15 10 MG Amiodarone HCl 400 mg Q12HR PO 09/20/25 10:00 09/24/25 09:14 400 MG Promethazine HCl 25 mg Q6HP PRN PO 09/20/25 11:45 09/20/25 12:40 25 MG Amiodarone HCl 250 ml @ 16.66 mls/ hr Q15H1M IV 09/20/25 22:30 UNV Pantoprazole Sodium 40 mg BID IV 09/21/25 22:00 09/24/25 09:07 40 MG Ceftriaxone Sodium 50 ml @ 100 mls/hr DAILY@09 IV 09/23/25 09:00 09/24/25 09:16 100 MLS/HR Enoxaparin Sodium 40 mg DAILY SC 09/23/25 10:00 09/24/25 09:12 40 MG Sodium Chloride 1,000 ml @ 100 mls/hr Q10H IV 09/23/25 10:45 09/24/25 05:32 100 MLS/HR objective GENERAL: Alert and oriented x 3. No acute distress. EYES: PERRL, EOMI. Anicteric. HENT: Moist mucous membranes. LUNGS: Clear to auscultation bilaterally. CARDIOVASCULAR: Regular rate and rhythm. ABDOMEN: Soft, nontender and nondistended. EXTREMITIES: No edema. NEUROLOGIC: No focal neurological deficits. SKIN: Warm, dry. laboratory and microbiology Laboratory Tests 09/24/25 05:28 Test 09/24/25 05:28 Range/Units Serum Glucose 95 74-106 mg/dL Problem List Acute abdominal pain. Acute small bowel obstruction. Acute dehydration. Hypercholesterolemia. History of DVT on Coumadin. Nausea and vomiting. CHF exacerbation. Community-acquired pneumonia. Tachycardia. Assessment/Plan Continued all current supportive medical care. Morphine and [place] for pain management. Amiodarone. IV antibiotics as ordered. Coreg. Diuretics with Lasix. IV Labetalol for SBP > 150. Nitro SL. Entresto. DVT and GI prophylactics. Additional plan as per the hospital course. Dietary Evaluation Review Comments: 1) Advance to cardiac diet when medically feasible 2) Collect HbA1c d/t elevated BG levels 3) Refer to outpatient RD for weight management 4) Follow-up with gastroenterology and cardiology 5) Continue to monitor I&O, labs, and skin integrity Expected Outcomes/Goals: 1) appetite and labs to improve 2) diet to advance 3) gradual wt loss 4) f/u in 3-5 days Plan discussed with: Patient MARGARET BORDEN MD Sep 24, 2025 11:43
--- NOTE | 2025-09-28 08:07 | DVHDS2 ---
Discharge Summary Date of Admission Sep 17, 2025 at 21:57 Date of Discharge: Sep 24, 2025 Admitting Diagnosis Acute abdominal pain Wounds: none Labs/Diagnostic Data: Laboratory Results Test 09/24/25 05:28 09/19/25 06:41 09/17/25 22:17 09/17/25 17:42 White Blood Count 10.5 10^3/uL (4.4-10.8) Red Blood Count 4.84 10^6/uL (4.5-5.90) Hemoglobin 14.0 g/dL (13.5-17.5) Hematocrit 42.2 % (41.0-53.0) Mean Corpuscular Volume 87.2 fL (80.0-100.0) Mean Corpuscular Hemoglobin 29.0 pg (28.0-32.0) Mean Corpuscular Hemoglobin Concent 33.2 g/dL (32.0-36.0) Red Cell Distribution Width 15.8 % (11.8-14.3) Platelet Count 148 10^3/uL (140-450) Mean Platelet Volume 8.5 fL (6.9-10.8) Neutrophils (%) (Auto) 76.8 % (37.0-80.0) Lymphocytes (%) (Auto) 14.2 % (10.0-50.0) Monocytes (%) (Auto) 5.7 % (0.0-12.0) Eosinophils (%) (Auto) 2.9 % (0.0-7.0) Basophils (%) (Auto) 0.4 % (0.0-2.0) Neutrophils # (Auto) 8.1 10 ^3/uL (1.6-8.6) Lymphocytes # (Auto) 1.5 10 ^3/uL (0.4-5.4) Monocytes # (Auto) 0.6 10 ^3/uL (0-1.3) Eosinophils # (Auto) 0.3 10 ^3/uL (0-0.8) Basophils # (Auto) 0 10 ^3/uL (0-0.2) Nucleated Red Blood Cells 0.1 % Prothrombin Time 12.3 sec (9.3-11.8) Prothrombin Time INR 1.18 (0.9-1.15) Activated Partial Thromboplast Time 26.8 SEC (24.5-34.5) Sodium Level 147 mmol/L (136-145) Potassium Level 3.2 mmol/L (3.5-5.1) Chloride Level 110 mmol/L (98-107) Carbon Dioxide Level 28 mmol/L (20-31) Anion Gap 9 (5-15) Blood Urea Nitrogen 14 mg/dL (9-23) Creatinine 1.03 mg/dL (0.700-1.30) Glomerular Filtration Rate Calc 78 mL/min (>90) BUN/Creatinine Ratio 13.6 (10.0-20.0) Serum Glucose 95 mg/dL (74-106) Calcium Level 8.0 mg/dL (8.7-10.4) Magnesium Level 2.3 mg/dL (1.6-2.6) Total Bilirubin 1.9 mg/dL (0.2-1.0) Aspartate Amino Transferase (AST) 17 U/L (13-40) Alanine Aminotransferase (ALT) 10 U/L (7-40) Alkaline Phosphatase 55 U/L (46-116) Total Protein 5.5 g/dL (5.7-8.2) Albumin 3.2 g/dL (3.2-4.8) Triglycerides Level 89 mg/dL (< 150) Cholesterol Level 146 mg/dL (< 200) LDL Cholesterol 83 mg/dL (< 100) HDL Cholesterol 46 mg/dL (40-59) Thyroid Stimulating Hormone (TSH) 2.86 uIU/mL (0.55-4.78) Urine Color Yellow (Yellow) Urine Clarity Clear (Clear) Urine pH 5.5 (5.0-9.0) Urine Specific [place] 1.039 (1.001-1.035) Urine Protein Negative (Negative) Urine Ketones 1+ (Negative) Urine Blood Negative /uL (Negative) Urine Nitrite Negative (Negative) Urine Bilirubin Negative (Negative) Urine Urobilinogen Normal mg/dL (Negative) Urine Leukocyte Esterase Negative /uL (Negative) Urine RBC 2 /hpf (0 - 3) Urine Microscopic WBC 2 /HPF (0-3) Urine Squamous Epithelial Cells None seen /hpf (<5) Urine Bacteria None seen /hpf (None Seen) Urine Glucose 4+ mg/dL (Normal) Troponin I High Sensitivity 3 ng/L (</=54) Test 09/17/25 16:42 Lactic Acid Level 1.7 mmol/L (0.4-2.0) B-Type Natriuretic Peptide 89.59 pg/mL (0-100) Lipase 35 U/L (12-53) Other Laboratory Tests 09/24/25 05:28 Brief Hx & Hospital Course: 69-year-old male admitted for acute abdominal pain found to have small-bowel obstruction seen by surgeon Dr. Kirby. Advised conservative management with the NG suction IV fluids also seen by GI Dr. Devyn Pat patient has a history of DVT who was on Coumadin patient has a bloody emesis and Coumadin was held CHF exacerbation was treated with the Lasix Coreg and Entresto seen by Cardiology Dr. Arben Oconnor patient developed a tachycardia while in the hospital treated with labetalol blood cultures negative hypokalemia resolved with the potassium replacement patient with gradually advanced to soft diet repeat small-bowel series were negative for any obstruction patient has slowly recovered. While awaiting further stabilization patient decided to leave AMA and left AMA. Consequences complications including possible explained to the patient and he verbalized understanding. General condition satisfactory at the time of leaving AMA per nurse's notes. Possible community-acquired pneumonia treated with the Rocephin azithromycin and Flagyl. Consults/Reason for consult Cardiology Dr. Arben Oconnor GI Dr. Perez GI Dr. Devyn Pat Operations or Procedures CT abdomen pelvis without contrast Condition at Discharge: Fair Final Diagnosis/Problems List Acute abdominal pain Acute small bowel obstruction: Consult by surgeon Dr. Kirby appreciated, small-bowel series shows no obstruction, started on clear liquid diet Acute dehydration: IV fluids Hypercholesterolemia History of DVT on Coumadin ; patient has bloody emesis, DC Coumadin in anticipation of possible endoscopy Nausea and vomiting: Zofran Compazine CHF exacerbation: Lasix Coreg Entresto, Possible community-acquired pneumonia Gram-positive versus Gram-negative: Rocephin azithromycin, Flagyl Tachycardia: Labetalol, cardiology consult by Dr. Oconnor appreciated Blood Cultures negative Acute hypokalemia potassium 3.2: Replace potassium CHF exacerbation Discharge Disposition: AMA Discharge Instruct/Medications Diet comment: Not applicable Patient left AMA Activity comment: Not applicable Patient left AMA Follow Up/Referral: Not applicable Patient left AMA Medications: Not applicable Patient left AMA Scheduled Atorvastatin Calcium (Atorvastatin Calcium), 1 TAB PO HS, (Reported) Benzonatate (Benzonatate), 1 CAP PO TID PRN, (Reported) Budesonide-Formoterol Fumarate (Budesonide/Formoterol Fum 160-4.5 Mcg/Act), 2 PUFF INH BID, (Reported) Carvedilol (Carvedilol), 1 TAB PO BID, (Reported) Cetirizine HCl (Allergy Relief), 1 TAB PO DAILY, (Reported) Dupilumab (Dupixent), 300 MG SC QWEEKLY, (Reported) Empagliflozin (Jardiance), 1 TAB PO DAILY, (Reported) Furosemide (Furosemide), 1 TAB PO DAILY, (Reported) Ketoconazole (Ketoconazole), 1 APPLIC TOP UD, (Reported) Meclizine HCl (Meclizine Hydrochloride), 1 TAB PO DAILY PRN, (Reported) Sacubitril-Valsartan (Entresto 24-26 mg), 0.5 TAB PO BID, (Reported) Warfarin Sodium (Warfarin Sodium), 4 MG PO MonWedFriSatSun, (Reported) Warfarin Sodium (Warfarin Sodium), 6 MG PO TuTh, (Reported) 39 (Time taken for discharge summary 39 minutes) Discharge Statement: "Patient was advised to return to the ER or call 911 if any headaches, dizziness, shortness of breath, chest pain, abdominal pain, bleeding, fevers, or worsening of medical condition. Patient was counseled about treatment plan, medications, possible side effects, patientverbalized understanding. All questions were answered to the best of my ability. This discharge took greater then 30 minutes in planning, reviewing documentation, counseling the patient, and discussing with other team members." ASSESSMENT ASSESSMENT Hospital Course Improved Left AMA Assessment Date of Service: Sep 24, 2025 Billing Provider: BOLIVAR TORRES MD Common Visit Codes: 35388-DCE/OBS DISCH DAY >30min BOLIVAR TORRES MD Sep 28, 2025 08:07
== END 2025-09-24 19:48 | disposition left against medical advice (07) | DRG 871 ==
LOC: ER 16:05 → EDBD 16:05 → EDUNIT# 16:05 → OVERFLOW 21:57 → TELE-EAST 22:03 → TELE-WESTW 09-18 01:37 → DOU 09-20 17:53 → TELE-EAST 09-23 11:27
PROVIDERS: ADMIT Family Medicine; ATTEND Family Medicine
PROC: 0D9670Z Drainage of Stomach with Drainage Device, Via Natural or Artificial Opening (ICD-10-PCS; principal; 2025-09-20)
DX: A41.9 Sepsis, unspecified organism (principal); J18.9 Pneumonia, unspecified organism; K56.600 Partial intestinal obstruction, unspecified as to cause; E86.0 Dehydration; E78.00 Pure hypercholesterolemia, unspecified; I48.91 Unspecified atrial fibrillation; I50.9 Heart failure, unspecified; I11.0 Hypertensive heart disease with heart failure; Z53.29 Procedure and treatment not carried out because of patient's decision for other reasons; E87.6 Hypokalemia; Z96.611 Presence of right artificial shoulder joint; Z83.3 Family history of diabetes mellitus; Z90.49 Acquired absence of other specified parts of digestive tract; Z86.718 Personal history of other venous thrombosis and embolism; Z95.0 Presence of cardiac pacemaker; Z79.01 Long term (current) use of anticoagulants; Z96.612 Presence of left artificial shoulder joint
CPT/HCPCS: 36415; 71045; 74018; 74176; 74250; 80048; 80053; 80061; 81001; 82040; 82565; 83605; 83690; 83735; 83880; 84443; 84484; 85025; 85610; 85730; 87040; 93005; 96361; 96365; 96375; 96376; 97110; 97116; 97163; 97530; G0378; J2405; J2470; J3430; J3480; J3490

== ENCOUNTER 2025-10-26 04:47 | Inpatient (IN) | payer MEDICARE, MEDICAID ==
[~2025-10-26] VITALS: Ht 182.9 cm; Wt 72.0 kg
[~2025-10-26 04:47] MED LIST changes: -ALBUAER3 IN; -BISA10SU45 RE; +CARV-214 OR; -CHOL20007 PO; +DOXY-286 PO; +FURO1TAB33 PO; -MAGN400T40 PO; +OSEL75CA5 PO; -POLY335015 PO; -ZINC220C8 PO; -[UNRECOGNIZED DRUG - CODE] PO
--- NOTE | 2025-10-26 05:04 | ED.PDOC ---
History of Present Illness HPI Comments 69-year-old male is brought in by ambulance from private residence for chief complaint of dizziness and left sided chest pain radiating to his neck. Significant history for asthma, cancer, CHF, COPD, DVTs - on Coumadin, DM, HLD, HTN, SBO, ammonia, and methamphetamine abuse. Per EMS personnel report, patient endorses on one-week history of room spinning dizziness, that is provoked whenever the patient moves his head. He reports vomiting 2 times at 9:00 p.m., last night, and 1 time at 4:00 a.m., this morning, with associated left shoulder pain. No blood reported in vomitus. EN route, patient was given Zofran and had IV access placed. youth nutritional monitor show patient transition between bradycardic and paced rhythm prior to ED arrival. At time of assessment, patient reports no recent head trauma, sick contacts, or further pertinent events or history. He denies having any chest pain, shortness of breath, vision or speech changes, facial droop, or further acute symptoms at this time. Time Seen by MD: 04:50 Primary Care Provider: FELIPE Reviewed Notes: Nurses Notes, Ethyl Blender Notes, Medications, Allergies Allergies: Coded Allergies: NO KNOWN ALLERGIES (Unverified , 07/10/17) Home Meds Reported Medications Warfarin Sodium (Warfarin Sodium) 4 Mg Tab, 6 MG PO TuTh for 100 Days, #140 TAKE 1.5 TABLETS (6 MG) BY MOUTH EVERY SUNDAY AND SUNDAY. 09/21/25 Warfarin Sodium (Warfarin Sodium) 4 Mg Tab, 4 MG PO for 100 Days, #140 TAKE 1 TABLET (4 MG) BY MOUTH EVERY SUNDAY, SUNDAY, SUNDAY, SUNDAY AND SUNDAY. 09/21/25 Meclizine HCl (Meclizine Hydrochloride) 25 Mg Tab, 1 TAB PO DAILY PRN for 30 Days, #30 09/21/25 Cetirizine HCl (Allergy Relief) 10 Mg Tab, 1 TAB PO DAILY for 100 Days, #100 09/21/25 Ketoconazole (Ketoconazole) 2 % Sha, 1 APPLIC TOP UD for 30 Days, #120 APPLY TO AFFECTED AREA, LEAVE ON FOR 5 MINUTES AND WASH OFF 3 TIMES A WEEK. 09/21/25 Budesonide-Formoterol Fumarate (Budesonide/Formoterol Fum 160-4.5 Mcg/Act) 1 Aer Aer, 2 PUFF INH BID for 90 Days, #30.6 09/21/25 Benzonatate (Benzonatate) 100 Mg Cap, 1 CAP PO TID PRN for 90 Days, #270 09/19/25 Carvedilol (Carvedilol) 3.125 Mg Tab, 1 TAB PO BID for 100 Days, #200 09/19/25 Sacubitril-Valsartan (Entresto 24-26 mg) 1 Tab Tab, 0.5 TAB PO BID for 60 Days, #60 09/19/25 Empagliflozin (Jardiance) 10 Mg Tab, 1 TAB PO DAILY for 30 Days, #30 09/19/25 Furosemide (Furosemide) 20 Mg Tab, 1 TAB PO DAILY for 100 Days 09/19/25 Dupilumab (Dupixent) 300 Mg/2 Ml Inj, 300 MG SC QWEEKLY for 28 Days, #4 09/19/25 Atorvastatin Calcium (ATORVASTATIN CALCIUM) 40 Mg Tab, 1 TAB PO HS 01/21/21 Information Source: Patient, Emergency Med Personnel Mode of Arrival: EMS Severity: Moderate Timing: Days Duration: Since onset Prehospital treatment: 12 Lead EKG, Oil Pipeline Dispatcher, Treatment (Zofran), Other (IV access) Past Medical History PAST MEDICAL HISTORY: Asthma, Cancer, CHF, COPD, DM, High Lipids, HTN Past Medical History (Other): SBO DVTs on Coumadin Pneumonia Surgical History: Appendectomy, Hernia Repair, Tonsillectomy Family History Family History: Family hx of DM Social History Smoker: Non-Smoker Alcohol: Denies ETOH Use Drugs: Methamphetamine Lives In: Home All Other Systems: Reviewed and Negative (Comprehensive review of systems are negative unless otherwise stated in HPI) Physical Exam General Appearance: Mild Distress, Normal HEENT: Normal ENT Inspection, Pharynx Normal, TMs Normal Neck: Full Range of Motion, Non-Tender, Normal, Normal Inspection Respiratory: Chest Non-Tender, Lungs Clear, No Accessory Muscle Use, No Respiratory Distress, Normal Breath Sounds Cardiovascular: No Edema, No JVD, No Murmur, No Gallop, Normal Peripheral Pulses, Regular Rate/Rhythm Breast Exam: Deferred Gastrointestinal: No Organomegaly, Non Tender, No Pulsatile Mass, Normal Bowel Sounds, Soft Genitalia: Deferred Pelvic: Deferred Rectal: Deferred Extremities: No calf tenderness, Normal capillary refill, Normal inspection, Normal range of motion, Non-tender, No pedal edema Musculoskeletal : Apperance: Normal Neurologic: Alert, quality assurance qa lab technician II-XII nml as Tested, No Motor Deficits, Normal Affect, Normal Mood, No Sensory Deficits Cerebellar Function: Normal Reflexes: Normal Skin: Dry, Normal Color, Warm Lymphatic: No Adenopathy Was a procedure done? Was a procedure done?: No EKG EKG : Pulse Rate (adult): 62 [place]: Normal Cardiac Rhythm: NSR Block: None Hypertrophy: None ST: Normal Differential Dx Considerations may include: Vertigo, dehydration, electrolyte imbalance, vestibular enteritis, orthostatic hypotension, migraine, arrhythmias, among others X-Ray, Labs, Meds, VS Vital Signs Date Time Temp Pulse Resp B/P (MAP) Pulse Ox O2 Delivery O2 Flow Rate FiO2 10/26/25 05:04 62 10/26/25 04:55 98.3 65 20 152/77 94 98.3 10/26/25 04:51 62 Lab Test 10/26/25 05:15 Range/Units White Blood Count 7.9 4.4-10.8 10^3/uL Red Blood Count 5.12 4.5-5.90 10^6/uL Hemoglobin 14.8 13.5-17.5 g/dL Hematocrit 43.9 41.0-53.0 % Mean Corpuscular Volume 85.8 80.0-100.0 fL Mean Corpuscular Hemoglobin 28.9 28.0-32.0 pg Mean Corpuscular Hemoglobin Concent 33.7 32.0-36.0 g/dL Red Cell Distribution Width 15.3 H 11.8-14.3 % Platelet Count 200 140-450 10^3/uL Mean Platelet Volume 8.0 6.9-10.8 fL Neutrophils (%) (Auto) 70.3 37.0-80.0 % Lymphocytes (%) (Auto) 16.6 10.0-50.0 % Monocytes (%) (Auto) 5.2 0.0-12.0 % Eosinophils (%) (Auto) 7.7 H 0.0-7.0 % Basophils (%) (Auto) 0.2 0.0-2.0 % Neutrophils # (Auto) 5.5 1.6-8.6 10 ^3/uL Lymphocytes # (Auto) 1.3 0.4-5.4 10 ^3/uL Monocytes # (Auto) 0.4 0-1.3 10 ^3/uL Eosinophils # (Auto) 0.6 0-0.8 10 ^3/uL Basophils # (Auto) 0 0-0.2 10 ^3/uL Nucleated Red Blood Cells 0.1 % Prothrombin Time 24.7 H 9.3-11.8 sec Prothrombin Time INR 2.56 H 0.9-1.15 Activated Partial Thromboplast Time 38.8 H 24.5-34.5 SEC Sodium Level Pending Potassium Level Pending Chloride Level Pending Carbon Dioxide Level Pending Anion Gap Pending Blood Urea Nitrogen Pending Creatinine Pending Glomerular Filtration Rate Calc Pending BUN/Creatinine Ratio Pending Serum Glucose Pending Calcium Level Pending Total Bilirubin Pending Aspartate Amino Transferase (AST) Pending Alanine Aminotransferase (ALT) Pending Alkaline Phosphatase Pending Troponin I High Sensitivity Pending B-Type Natriuretic Peptide Pending Total Protein Pending Albumin Pending Time of 1ST Reevaluation: 05:30 Reevaluation 1ST: Unchanged Patient Education/Counseling: Diagnosis, Treatment Family Education/Counseling: No Family Present SEPSIS Sepsis Screen Physician Orders Chest Portable (10/26/25 04:55) Comprehensive Metabolic Panel (10/26/25 04:55) B-Type Natriuretic Peptide (10/26/25 04:55) Troponin-I Hs (10/26/25 04:55) Troponin-I Hs (10/26/25 05:55) Troponin-I Hs (10/26/25 07:55) Head Without Contrast (10/26/25 04:55) Vital Signs Date Time Temp Pulse Resp B/P (MAP) Pulse Ox O2 Delivery O2 Flow Rate FiO2 10/26/25 05:04 62 10/26/25 04:55 98.3 65 20 152/77 94 98.3 10/26/25 04:51 62 Laboratory Tests Test 10/26/25 05:15 White Blood Count 7.9 10^3/uL (4.4-10.8) Departure 1 Departure Time of Disposition: 07:00 Impression: Primary Impression: Acute coronary syndrome Disposition: ADMITTED INPATIENT Admit to: Tele Condition: Guarded Discharged With: Self Comments 69-year-old male with a history of hypertension and CHF and coronary artery disease and prior methamphetamine abuse now with some chest pain radiating to left-sided shoulder and neck and dizziness. Patient was given aspirin and morphine. With his risk factors he will need to be admitted for supportive care and further workup. Critical Care Note Critical Care Time?: Yes (35 min-critical care time only) Critical care comment: Total critical care time: Approximately 36 minutes Due to a high probability of clinically significant, life threatening deterioration, the patient required my highest level of preparedness to intervene emergently and I personally spent this critical care time directly and personally managing the patient. This critical care time included obtaining a history; examining the patient; pulse oximetry; ordering and review of studies; arranging urgent treatment with development of a management plan; evaluation of patient's response to treatment; frequent reassessment; and, discussions with other providers. This critical care time was performed to assess and manage the high probability of imminent, life-threatening deterioration that could result in multi-organ failure. It was exclusive of separately billable procedures and treating other patients. Stability Stability form required: No Heart Score Heart Score: Heart Score Response (Comments) Value History N/A 0 EKG N/A 0 Age N/A 0 Risk Factors N/A 0 Troponin N/A 0 Total 0 I personally scribed for TAN ORANTES MD ([email or web address]) on 10/26/25 at 05:04. Electronically submitted by Edgardo Valencia ([email or web address]). TAN ORANTES MD Oct 26, 2025 05:04
--- NOTE | 2025-10-26 05:08 | ECG ---
[facility] Test Date: 2025-10-26 Test Time: 04:51:51 Pat Name: SANTINO PAZ Department: ED Room: [address] [place] [address] Gender: M Machine I Engraver: MARK : 1955 Requested By: TAN ORANTES Order Number: [id number] Reading MD: Bladimir Rodriguez Measurements Intervals Angela Rate: 62 P: 12 DC: 208 QRS: -48 QRSD: 109 T: 76 QT: 490 QTc: 498 Interpretive Statements Sinus rhythm Left anterior fascicular block Left ventricular hypertrophy Probable anterior infarct, age indeterminate Electronically Signed On 10-27-2025 15:07:09 PST by Bladimir Rodriguez Please click the below link to view image of tracing.
[2025-10-26 05:25] LABS: Hematocrit 43.9 % (41.0-53.0); Hemoglobin 14.8 g/dL (13.5-17.5); Mean Corpuscular Hemoglobin 28.9 pg (28.0-32.0); Mean Corpuscular Volume 85.8 fL (80.0-100.0); Nucleated Red Blood Cells % 0.1 %
[2025-10-26 05:41] LABS: INR 2.56 (0.9-1.15); Partial Thromboplastin Time 38.8 SEC (24.5-34.5); Prothrombin Time 24.7 sec (9.3-11.8)
[2025-10-26 05:44] LABS: Alanine Aminotransferase 18 U/L (7-40); Albumin 4.5 g/dL (3.2-4.8); Alkaline Phosphatase 104 U/L (46-116); Anion Gap 12 (5-15); BUN/Creatinine Ratio 10.6 (10.0-20.0); Blood Urea Nitrogen 11 mg/dL (9-23); Calcium 9.5 mg/dL (8.7-10.4); Carbon Dioxide 23 mmol/L (20-31); Potassium 3.7 mmol/L (3.5-5.1); Sodium 144 mmol/L (136-145); Total Protein 7.2 g/dL (5.7-8.2)
[2025-10-26 05:46] LABS: Bilirubin, Total 2.3 mg/dL (0.2-1.0); Chloride 109 mmol/L (98-107); Glucose 127 mg/dL (74-106)
--- NOTE | 2025-10-26 06:19 | DVH ---
EXAM: CT HEAD WITHOUT CONTRAST INDICATION: Vertigo. TECHNIQUE: CT of the head without intravenous contrast. Coronal and sagittal reformatted images are submitted. Radiation Dose : 1. Head: CT Dose: CTDI volume is 59.92 mGy. Dose-length product is 958.7 mGy*cm The dose indicators for CT are the volume Computed Tomography (CT) Dose Index (CTDIvol) and the Dose Length Product (DLP), and are measured in units of mGy and mGy-cm, respectively. These indicators are not patient dose, but values generated from the CT scanner acquisition factors. The report includes radiation exposure data for exposures received during this examination. All CT scans at this medical facility are performed using dose modulation techniques as appropriate to a performed exam including the following: Automated exposure control was utilized; adjustment of the MA and/or KV according to patient size; and use of iterative reconstruction technique. COMPARISON: None FINDINGS: There is no evidence of acute intracranial hemorrhage, extra-axial collection, mass effect, midline shift, herniation or hydrocephalus. 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 The ventricles, sulci and cisterns are age appropriate. The quintanilla-white differentiation is intact. The mastoid air cells are clear. There is mucosal thickening in the left maxillary sinus. No depressed calvarial fracture. The surrounding soft tissues are unremarkable. IMPRESSION: 1. No evidence of acute intracranial abnormality.
[2025-10-26] MEDS: ONDANSETRON HCL 4 MG/2 ML VIAL IV ONE (06:23)
[2025-10-26] MEDS: MORPHINE SULFATE 4 MG/ML SYR/VIAL IV ONE (06:24)
--- NOTE | 2025-10-26 06:30 | DVH ---
CHEST RADIOGRAPH Indication: SOB Technique: Single frontal view of the chest was obtained Comparison: XY CHEST XRAY 1 VIEW on DOS: 09/20/25 FINDINGS: Lines and Tubes: There is a right shoulder prosthesis. AICD/ pacemaker noted. The enteric tube has been removed. Lungs: No focal consolidation. Pleura: No effusion. No pneumothorax. Cardiomediastinal contours: Unremarkable Bones: No acute osseous abnormality. IMPRESSION: 1. No acute cardiopulmonary disease.
--- NOTE | 2025-10-26 09:54 | DVHHPRES ---
History of Present Illness Resident Creating Document: LALO MAYA RESIDENT History of Present Illness 69-year-old male with past medical history of heart failure 25% ejection fraction, DVT on Coumadin, GERD, hypertension, COPD/emphysema, hyperlipidemia, history of Hodgkin's lymphoma status post chemotherapy( behind the eye ) presented with complaints of neck soreness, dizziness, ear pain. Patient mentioned that three weeks ago he started having soreness in the neck more in the left side. He also mentioned dizziness, which is more with position change. It worsened on standing from sitting position. Patient denied any chest pain right now but as per the ER note he had chest pain radiating to the back. Denied any shortness of breath, fever, chills, nausea, vomiting. Past medical history heart failure 25% ejection fraction, DVT on Coumadin, GERD, hypertension, COPD/emphysema, hyperlipidemia, history of Hodgkin's lymphoma status post chemotherapy( behind the eye ) Past surgical history No recent surgery Medication history Atorvastatin Benzonatate Coreg Albuterol inhaler Dupixent Jardiance Lasix Entresto Warfarin Meclizine Social history Patient denied alcohol, marijuana, smoking Previous history of methamphetamine intake Family History Family History: Family hx of DM Review of Systems Review of Systems As described in the HPI Allergies: Coded Allergies: NO KNOWN ALLERGIES (Unverified , 07/10/17) Exam Vital Signs Vital Signs Date Time Temp Pulse Resp B/P (MAP) Pulse Ox O2 Delivery O2 Flow Rate FiO2 10/26/25 09:39 97.8 68 15 137/75 (95) 96 97.8 10/26/25 06:00 Room Air Exam Examination General Appearance: Alert, Oriented X3, Cooperative, No acute distress HEENT: EOMI Respiratory: Clear to auscultation, Normal air movement Cardiovascular: Regular rate, Normal S1, Normal S2 Abdominal: Normal bowel sounds Extremities: No cyanosis, No edema, Normal pulses, No tenderness/swelling Skin: No rashes, No breakdown Neuro: Normal speech and tone Labs/Xrays Labs Test 10/26/25 08:17 10/26/25 05:15 Range/Units Troponin I High Sensitivity 8 </=54 ng/L White Blood Count 7.9 4.4-10.8 10^3/uL Red Blood Count 5.12 4.5-5.90 10^6/uL Hemoglobin 14.8 13.5-17.5 g/dL Hematocrit 43.9 41.0-53.0 % Mean Corpuscular Volume 85.8 80.0-100.0 fL Mean Corpuscular Hemoglobin 28.9 28.0-32.0 pg Mean Corpuscular Hemoglobin Concent 33.7 32.0-36.0 g/dL Red Cell Distribution Width 15.3 H 11.8-14.3 % Platelet Count 200 140-450 10^3/uL Mean Platelet Volume 8.0 6.9-10.8 fL Neutrophils (%) (Auto) 70.3 37.0-80.0 % Lymphocytes (%) (Auto) 16.6 10.0-50.0 % Monocytes (%) (Auto) 5.2 0.0-12.0 % Eosinophils (%) (Auto) 7.7 H 0.0-7.0 % Basophils (%) (Auto) 0.2 0.0-2.0 % Neutrophils # (Auto) 5.5 1.6-8.6 10 ^3/uL Lymphocytes # (Auto) 1.3 0.4-5.4 10 ^3/uL Monocytes # (Auto) 0.4 0-1.3 10 ^3/uL Eosinophils # (Auto) 0.6 0-0.8 10 ^3/uL Basophils # (Auto) 0 0-0.2 10 ^3/uL Nucleated Red Blood Cells 0.1 % Prothrombin Time 24.7 H 9.3-11.8 sec Prothrombin Time INR 2.56 H 0.9-1.15 Activated Partial Thromboplast Time 38.8 H 24.5-34.5 SEC Sodium Level 144 136-145 mmol/L Potassium Level 3.7 3.5-5.1 mmol/L Chloride Level 109 H 98-107 mmol/L Carbon Dioxide Level 23 20-31 mmol/L Anion Gap 12 5-15 Blood Urea Nitrogen 11 9-23 mg/dL Creatinine 1.04 0.700-1.30 mg/dL Glomerular Filtration Rate Calc 77 >90 mL/min BUN/Creatinine Ratio 10.6 10.0-20.0 Serum Glucose 127 H 74-106 mg/dL Calcium Level 9.5 8.7-10.4 mg/dL Total Bilirubin 2.3 H 0.2-1.0 mg/dL Aspartate Amino Transferase (AST) 19 13-40 U/L Alanine Aminotransferase (ALT) 18 7-40 U/L Alkaline Phosphatase 104 46-116 U/L B-Type Natriuretic Peptide 224.29 0-100 pg/mL Total Protein 7.2 5.7-8.2 g/dL Albumin 4.5 3.2-4.8 g/dL SEPSIS Sepsis Screen Date sepsis recognized/suspect: Oct 26, 2025 Time Sepsis recognized/suspect: 454 Recent Procedure: No On Antibiotic Therapy: No Respiratory Rate >20: No Heart Rate >90: No Temp<36 C (96.8 F) or >38.3 C: No SBP <90 or MAP <65 mmHG: No New Acute Mental Status Change: No Is the patient on CPAP, BIPAP,: No Physician Orders Chest Portable (10/26/25 04:55) Head Without Contrast (10/26/25 04:55) Admit (10/26/25 09:45) Allergies (10/26/25 09:45) Code Status (10/26/25 09:45) Complete Blood Count (10/27/25 04:00) Comprehensive Metabolic Panel (10/27/25 04:00) Cardiac Diet-2gna,Lofat,Lochol (10/26/25 Lunch) Notify Md Of Changes From Base (10/26/25 09:45) [employer] [facility] [employer] For 24 Hours (10/26/25 09:45) Emergency Dysrhythmia Protocol (10/26/25 09:45) Rhythm Strips Once Every Shift (10/26/25 09:45) Electrocardigram (10/26/25 09:45) Troponin-I Hs (10/26/25 09:45) B-Type Natriuretic Peptide (10/26/25 09:45) Orthostatic Vital Signs (10/26/25 09:45) Troponin-I Hs (10/26/25 10:45) Troponin-I Hs (10/26/25 12:45) Cervical Spine 3v (10/26/25 09:45) Vital Signs Date Time Temp Pulse Resp B/P (MAP) Pulse Ox O2 Delivery O2 Flow Rate FiO2 10/26/25 09:39 97.8 68 15 137/75 (95) 96 97.8 10/26/25 07:36 63 17 131/68 (89) 97 10/26/25 07:33 63 17 131/68 10/26/25 06:45 97.7 64 16 126/67 (86) 99 97.7 10/26/25 06:24 68 13 149/87 10/26/25 06:00 98.0 68 13 149/87 (107) 96 98.0 10/26/25 06:00 68 13 Room Air 10/26/25 05:04 62 10/26/25 04:55 98.3 65 20 152/77 94 98.3 10/26/25 04:51 62 Laboratory Tests Test 10/26/25 05:15 White Blood Count 7.9 10^3/uL (4.4-10.8) Medications Medications Dose Ordered Sig/Lobito Route Start Time Stop Time Status Last Admin Dose Admin Aspirin 162 mg ONCE ONCE PO 10/26/25 05:00 10/26/25 05:01 DC 10/26/25 06:18 162 MG Morphine Sulfate 4 mg ONCE ONCE IV 10/26/25 05:00 10/26/25 05:01 DC 10/26/25 06:24 4 MG Ondansetron HCl 4 mg ONCE ONCE IV 10/26/25 05:00 10/26/25 05:01 DC 10/26/25 06:23 4 MG Assessment/Plan Assessment/Plan Assessment/plan # presyncope, reason unknown # history of previous stroke -head CT Orthostatic vitals, EKG, tropes Vitamin B12, TSH, folate Recent echo done ejection fraction 25% 09/05/2025 MODERATELY DILATED LV MODERATE DEGREE LV GLOBAL HYPOKINESIS LV EF IS 25% AND IS MODERATELY REDUCED PACEMAKER IN RIGHT CARDIAC CHAMBERS NO EFFUSION GROSSLY NORMAL VALVES Consider CT angio head and neck if other workup is negative # history of DVT on Coumadin -resume warfarin # heart failure with reduced ejection fraction, stable # history of pacemaker and AICD We will resume home Meds # COPD, stable We will resume home Meds # GERD -we will resume home Meds # diabetes mellitus type 2 Sliding scale insulin Keep blood glucose between 140-180 Accu-Cheks q.6/a.c. HS Diabetic diet: Consistent carbohydrate DVT prophylaxis Coumadin Code status discussed with the patient for greater than 21 minutes Full code Case discussion with Dr. Piper Plan discussed with: Patient, Other My Orders Orders - LALO MAYA RESIDENT Procedure Category Date Status Time Admit ADMIT 10/26/25 Verified 09:45 Allergies TYRONE 12/1/25 Verified 09:45 Code Status CODE 10/26/25 Verified 09:45 Complete Blood Count LAB 10/27/25 Verified 04:00 Comprehensive LAB 10/27/25 Verified Metabolic Panel 04:00 Cardiac DIET 10/26/25 Verified Diet-2gna,Lofat,Lochol Lunch Notify Of Changes [facility] 10/26/25 Verified From Base 09:45 [facility] For [facility] 10/26/25 Verified 24 Hours 09:45 Emergency Dysrhythmia [facility] 10/26/25 Verified Protocol 09:45 Rhythm Strips Once [facility] 10/26/25 Verified Every Shift 09:45 Electrocardigram EKG 10/26/25 Verified 09:45 Troponin-I Hs LAB 10/26/25 Verified 09:45 B-Type Natriuretic LAB 10/26/25 Verified Peptide 09:45 Orthostatic Vital ORDERS 10/26/25 Verified Signs 09:45 Troponin-I Hs LAB 10/26/25 Verified 10:45 Troponin-I Hs LAB 10/26/25 Verified 12:45 Cervical Spine 3v XY 10/26/25 Verified 09:45 LALO MAYA RESIDENT Oct 26, 2025 09:54
--- NOTE | 2025-10-26 10:52 | DVH ---
CLINICAL HISTORY: neck pain and dizziness TECHNIQUE: 3 views of the cervical spine were obtained. COMPARISON: None FINDINGS: The alignment of the cervical spine is normal. The vertebral body heights are maintained. There is mild C3-C4 disc space loss. The prevertebral space is within normal limits. No acute fracture or dislocation is seen. IMPRESSION: NO ACUTE RADIOGRAPHIC ABNORMALITY OF THE CERVICAL SPINE.
[2025-10-26 13:00] VITALS: BP 108/64; PULSE 60; RESP 16; TEMP 98.4; O2SAT 95
[2025-10-26 17:00] VITALS: BP 121/58; PULSE 66; RESP 16; TEMP 98.1; O2SAT 95
[2025-10-26] MEDS ORDERED: DEXTROSE (50%) 50ML SYRG IV PRN (17:45)
[2025-10-26] MEDS ORDERED: IOHEXOL 350 MG/ML 100ML IJ ONE (17:46)
[2025-10-26 20:00] VITALS: PULSE 67; RESP 17; O2SAT 94
[2025-10-26] MEDS: InsuLIN REG 1unit/0.01ml Soln (100units/ml) SC SCH (20:00)
[2025-10-26] MEDS: WARFARIN SODIUM 2 MG TAB PO ONE (20:06)
[2025-10-26] MEDS: ACCU-CHEK COMFORT CURVE STRIP VI SCH (20:10)
[2025-10-26 21:00] VITALS: BP 137/62; PULSE 67; RESP 17; TEMP 97.7; O2SAT 94
[2025-10-26] MEDS: ATORVASTATIN 20 MG TAB PO SCH (22:08)
[2025-10-26] MEDS: SACUBITRIL-VALSARTAN 24mg/26mg TAB PO SCH (22:09)
[2025-10-26] MEDS: CARVEDILOL 3.125 MG TAB PO SCH (22:09)
[2025-10-27] VITALS (10 sets, daily range): BP systolic 109–134; BP diastolic 60–86; PULSE 60–91; RESP 17–19; TEMP 97.4–98.2; O2SAT 93–98
[2025-10-27 06:15] LABS: Cannabinoid Screen, Urine Neg (NEGATIVE); Opiate Scree,Urine Neg (NEGATIVE)
[2025-10-27 06:19] LABS: Urine Protein, UAD Negative (Negative)
[2025-10-27 06:22] LABS: Amphetamine Screen, Urine Neg (NEGATIVE); Barbiturate Scree,Urine Neg (NEGATIVE); Benzodiazephine Screen, Urine Neg (NEGATIVE); Cocaine Screen, Urine Neg (NEGATIVE); Phencyclidine Screen, Urine Neg (NEGATIVE)
[2025-10-27 07:56] LABS: Hematocrit 44.7 % (41.0-53.0); Hemoglobin 14.8 g/dL (13.5-17.5); Mean Corpuscular Hemoglobin 28.6 pg (28.0-32.0); Mean Corpuscular Volume 86.3 fL (80.0-100.0); Nucleated Red Blood Cells % 0.1 %
[2025-10-27 07:59] LABS: Alanine Aminotransferase 15 U/L (7-40); Albumin 4.3 g/dL (3.2-4.8); Alkaline Phosphatase 105 U/L (46-116); Anion Gap 12 (5-15); BUN/Creatinine Ratio 12.7 (10.0-20.0); Blood Urea Nitrogen 14 mg/dL (9-23); Calcium 9.5 mg/dL (8.7-10.4); Carbon Dioxide 23 mmol/L (20-31); Potassium 4.1 mmol/L (3.5-5.1); Sodium 142 mmol/L (136-145); Total Protein 7.1 g/dL (5.7-8.2)
[2025-10-27 08:04] LABS: Bilirubin, Total 2.4 mg/dL (0.2-1.0); Chloride 107 mmol/L (98-107); Glucose 116 mg/dL (74-106)
[2025-10-27 08:17] LABS: INR 2.58 (0.9-1.15); Prothrombin Time 24.9 sec (9.3-11.8)
[2025-10-27 08:47] LABS: Free T4 (Free Thyroxine) 1.06 ng/dL (0.89-1.76)
[2025-10-27] MEDS: EMPAGLIFLOZIN 10 MG TAB PO SCH (08:49)
[2025-10-27] MEDS: FUROSEMIDE 20 MG TAB PO SCH (08:49)
[2025-10-27] MEDS: WARFARIN SODIUM 2 MG TAB PO ONE (16:48)
--- NOTE | 2025-10-27 17:54 | DVHPNRES ---
Progress Note Date Seen: Oct 27, 2025 Resident Creating Document: CAROLINE VASQUEZ RESIDENT Medical Necessity Reason Pt with a Central, PICC or Fol: No Subjective Review of Systems Patient is a 69-year-old male with past medical history of HFrEF with ejection fraction of 25%, 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 2-3 episodes of vomiting yesterday , chills, feeling sweaty. patient denies any nausea, headaches, fever, chills. Patient did state that his girlfriend was sick this last week. Past surgical history: Hernia repair, tonsillectomy, right shoulder surgery. Social history : patient denied any alcohol, smoking, drug use. Family history: Reviewed, noncontributory home medication: Atorvastatin, Benzonatate, Coreg , Albuterol inhaler, Dupixent, Jardiance , Lasix, Entresto , Warfarin, Meclizine lives with: Family 10/27/2025: Patient seen at bedside. Patient complains dizziness says the room is spinning. Increase with walking, getting up from sitting position. Orthostatic vitals were normal, hence exam showed peripheral vertigo. Head CT, cervical spine x-ray were normal. Objective vital signs Vital Sign Date Time Temp Pulse Resp B/P (MAP) Pulse Ox O2 Delivery O2 Flow Rate FiO2 10/27/25 17:00 98.1 91 19 119/68 (85) 95 98.1 10/27/25 08:00 Room Air* 0 21 Total Intake and Output 10/26/25 10/26/25 10/27/25 15:00 23:00 07:00 Intake Total 1225 ml 600 ml Output Total 300 ml Balance 1225 ml 300 ml medications Current Medications Medications Dose Ordered Sig/Lobito Route Start Time Stop Time Status Last Admin Dose Admin Carvedilol 3.125 mg BID PO 10/26/25 22:00 10/26/25 22:09 3.125 MG Empaglifozin 10 mg DAILY PO 10/27/25 10:00 10/27/25 08:49 10 MG Furosemide 20 mg DAILY PO 10/27/25 10:00 10/27/25 08:49 20 MG Meclizine HCl 25 mg DAILYPRN PRN PO 10/27/25 10:00 Sacubitril/ Valsartan 0.5 tab BID PO 10/26/25 22:00 10/27/25 08:47 0.5 TAB Atorvastatin Calcium 40 mg HS PO 10/26/25 22:00 10/26/25 22:08 40 MG Warfarin Sodium RX PROTOCOL PER PHARMACY PO 10/26/25 17:45 Diagnostic Test (Pha) 1 strip IQ4HR 10/26/25 20:00 10/27/25 11:38 1 STRIP Insulin Human Regular IQ4HR SC 10/26/25 20:00 Dextrose 50 ml UD PRN IV 10/26/25 17:45 Examination General: Patient alert and oriented in person, place and time. Patient following commands. Loss of balance HEENT: Normocephalic, atraumatic, moist mucous membranes Respiratory/pulmonary: Clear lungs bilaterally, vesicular murmurs present in almost all lung mcmahan, no associated crackles or wheezes. Cardiovascular: Normal heart sounds S1 and S2 with no associated murmurs Abdomen: Abdomen nondistended, there is no pain to palpation in any of the abdominal quadrants, no palpable masses. Extremities: There is no peripheral edema present at the lower extremities. Peripheral Pulses: 3+ Radial (R). 3+ Radial (L). 3+ Dorsalis pedis (R). 3+ Dorsalis pedis(L) Skin: No rashes or pruritus, there is no sacral edema present at this time. Neurological: Intact cranial nerves with no focal neurologic deficits laboratory and microbiology Laboratory Tests 10/27/25 07:13 Test 10/27/25 07:13 Range/Units Serum Glucose 116 H 74-106 mg/dL Problem List/Assessment/Plan Problem List/Assessment/Plan # presyncope, reason unknown # history of previous stroke - head CT No evidence of acute intracranial abnormality. - cervical spine x-ray : NO ACUTE RADIOGRAPHIC ABNORMALITY OF THE CERVICAL SPINE. Orthostatic vitals- negative - meclizine - HINTS exam done showed peripheral vertigo - Vitamin B12- - TSH 7.7, - Recent echo done ejection fraction 25% 09/05/2025 - Consider CT angio head and neck if other workup is negative # history of DVT on Coumadin -resume warfarin # heart failure with reduced ejection fraction, EF 25% # history of pacemaker and AICD - GDMT started # H/O COPD We will resume home Meds # diabetes mellitus type 2 Sliding scale insulin Keep blood glucose between 140-180 Accu-Cheks q.6/a.c. HS # hyperlipidemia - atorvastatin # history of Hodgkin lymphoma - follow-up Oncology outpatient # Obesity BMI 29.9 -patient counseled on lifestyle modifications, diet, exercise for 18 minutes. Diabetic diet: Consistent carbohydrate DVT prophylaxis : Coumadin Goals of care addressed with the patient for more than 27 minutes: Full code status Case discussed with Dr. Rodriguez , patient and nurse Plan discussed with: Patient My Orders My Orders Orders - CAROLINE VASQUEZ Procedure Category Date Status Time Orthostatic Vital ORDERS 10/27/25 Transmitted Signs 08:11 Visit Coding STANDARD RES Billing Provider: HO RODRIGUEZ MD Date of Service if different f: Oct 27, 2025 Common Visit Codes: [id number] INP/OBS CARE(HIGH) CAROLINE VASQUEZ RESIDENT Oct 27, 2025 17:54
[2025-10-28 01:00] VITALS: BP 112/84; PULSE 65; RESP 18; TEMP 98; O2SAT 93
[2025-10-28 05:00] VITALS: BP 101/61; PULSE 60; RESP 16; TEMP 97.9; O2SAT 93
[2025-10-28 05:17] LABS: INR 2.85 (0.9-1.15); Prothrombin Time 27.2 sec (9.3-11.8)
[2025-10-28 05:19] LABS: Chloride 106 mmol/L (98-107); Potassium 3.6 mmol/L (3.5-5.1); Sodium 142 mmol/L (136-145)
[2025-10-28 05:20] LABS: Anion Gap 11 (5-15); Carbon Dioxide 25 mmol/L (20-31)
[2025-10-28 05:21] LABS: Calcium 9.3 mg/dL (8.7-10.4)
[2025-10-28 05:26] LABS: BUN/Creatinine Ratio 18.0 (10.0-20.0); Blood Urea Nitrogen 20 mg/dL (9-23)
[2025-10-28 05:29] LABS: Glucose 118 mg/dL (74-106)
[2025-10-28 08:00] VITALS: PULSE 60; PULSE 68; O2SAT 96
[2025-10-28 09:08] VITALS: BP 108/65; PULSE 64; RESP 17; TEMP 97.9; O2SAT 95
[2025-10-28 12:54] VITALS: BP 116/64; PULSE 64; RESP 17; TEMP 98; O2SAT 95
[2025-10-28] MEDS: IBUPROFEN 400 MG TAB PO ONE (16:20)
[2025-10-28 16:37] VITALS: BP 106/68; PULSE 61; RESP 17; TEMP 98; O2SAT 95
[2025-10-28] MEDS: MECLIZINE HCL 25 MG TAB PO PRN (16:39)
[2025-10-28] MEDS ORDERED: BACL5TAB2 PO (16:57)
[2025-10-28] MEDS ORDERED: IBUP1TAB4 PO (16:57)
--- NOTE | 2025-10-28 17:24 | DVHDSRES ---
Discharge Summary Date of Admission Resident Creating Document: CAROLINE VASQUEZ Oct 26, 2025 at 09:45 Date of Discharge: Oct 28, 2025 Admitting Diagnosis # presyncope, reason unknown Labs/Diagnostic Data: Laboratory Results Test 10/28/25 04:48 10/27/25 11:33 10/27/25 07:13 10/27/25 05:20 Prothrombin Time 27.2 sec (9.3-11.8) Prothrombin Time INR 2.85 (0.9-1.15) Sodium Level 142 mmol/L (136-145) Potassium Level 3.6 mmol/L (3.5-5.1) Chloride Level 106 mmol/L (98-107) Carbon Dioxide Level 25 mmol/L (20-31) Anion Gap 11 (5-15) Blood Urea Nitrogen 20 mg/dL (9-23) Creatinine 1.11 mg/dL (0.700-1.30) Glomerular Filtration Rate Calc 71 mL/min (>90) BUN/Creatinine Ratio 18.0 (10.0-20.0) Serum Glucose 118 mg/dL (74-106) Calcium Level 9.3 mg/dL (8.7-10.4) POC Glucose 122 mg/dl (70-106) White Blood Count 7.4 10^3/uL (4.4-10.8) Red Blood Count 5.18 10^6/uL (4.5-5.90) Hemoglobin 14.8 g/dL (13.5-17.5) Hematocrit 44.7 % (41.0-53.0) Mean Corpuscular Volume 86.3 fL (80.0-100.0) Mean Corpuscular Hemoglobin 28.6 pg (28.0-32.0) Mean Corpuscular Hemoglobin Concent 33.2 g/dL (32.0-36.0) Red Cell Distribution Width 15.9 % (11.8-14.3) Platelet Count 205 10^3/uL (140-450) Mean Platelet Volume 8.4 fL (6.9-10.8) Neutrophils (%) (Auto) 63.8 % (37.0-80.0) Lymphocytes (%) (Auto) 18.7 % (10.0-50.0) Monocytes (%) (Auto) 5.7 % (0.0-12.0) Eosinophils (%) (Auto) 9.8 % (0.0-7.0) Basophils (%) (Auto) 2.0 % (0.0-2.0) Neutrophils # (Auto) 4.7 10 ^3/uL (1.6-8.6) Lymphocytes # (Auto) 1.4 10 ^3/uL (0.4-5.4) Monocytes # (Auto) 0.4 10 ^3/uL (0-1.3) Eosinophils # (Auto) 0.7 10 ^3/uL (0-0.8) Basophils # (Auto) 0.1 10 ^3/uL (0-0.2) Nucleated Red Blood Cells 0.1 % Total Bilirubin 2.4 mg/dL (0.2-1.0) Direct Bilirubin 0.6 mg/dL (<0.3) Aspartate Amino Transferase (AST) 16 U/L (13-40) Alanine Aminotransferase (ALT) 15 U/L (7-40) Alkaline Phosphatase 105 U/L (46-116) Total Protein 7.1 g/dL (5.7-8.2) Albumin 4.3 g/dL (3.2-4.8) Free Thyroxine (T4) Calculated 1.06 ng/dL (0.89-1.76) Total Triiodothyronine (TT3) 0.83 ng/mL (0.60-1.81) Urine Color Yellow (Yellow) Urine Clarity Clear (Clear) Urine pH 5.0 (5.0-9.0) Urine Specific [place] 1.036 (1.001-1.035) Urine Protein Negative (Negative) Urine Ketones Negative (Negative) Urine Blood Negative /uL (Negative) Urine Nitrite Negative (Negative) Urine Bilirubin Negative (Negative) Urine Urobilinogen Normal mg/dL (Negative) Urine Leukocyte Esterase Negative /uL (Negative) Urine RBC None seen /hpf (0 - 3) Urine Microscopic WBC 1 /HPF (0-3) Urine Squamous Epithelial Cells None seen /hpf (<5) Urine Bacteria None seen /hpf (None Seen) Urine Mucus Few (None Seen) Urine Glucose 4+ mg/dL (Normal) Urine Opiates Screen Neg (NEGATIVE) Urine Fentanyl Screen Neg (NEGATIVE) Urine Barbiturates Screen Neg (NEGATIVE) Urine Phencyclidine Screen Neg (NEGATIVE) Urine Amphetamines Screen Neg (NEGATIVE) Urine Benzodiazepines Screen Neg (NEGATIVE) Urine Cocaine Screen Neg (NEGATIVE) Urine Cannabinoids Screen Neg (NEGATIVE) Test 10/26/25 08:17 10/26/25 07:28 10/26/25 05:15 Troponin I High Sensitivity 8 ng/L (</=54) Thyroid Stimulating Hormone (TSH) 7.70 uIU/mL (0.55-4.78) Vitamin B12 Level 439 pg/mL (211-911) Folic Acid 21.00 ng/mL (>5.38) Activated Partial Thromboplast Time 38.8 SEC (24.5-34.5) B-Type Natriuretic Peptide 224.29 pg/mL (0-100) Other Laboratory Tests 10/28/25 04:48 10/27/25 07:13 Brief Hx & Hospital Course: Patient is a 69-year-old male with past medical history of HFrEF with ejection fraction of 25%, 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 2-3 episodes of vomiting yesterday , chills, feeling sweaty. patient denies any nausea, headaches, fever, chills. Patient did state that his girlfriend was sick this last week. Past surgical history: Hernia repair, tonsillectomy, right shoulder surgery. Social history : patient denied any alcohol, smoking, drug use. Family history: Reviewed, noncontributory home medication: Atorvastatin, Benzonatate, Coreg , Albuterol inhaler, Dupixent, Jardiance , Lasix, Entresto , Warfarin, Meclizine lives with: Family brief hospital course: Patient came to the hospital with chief complaints of dizziness, had presyncope for unknown reason, history of previous stroke at 13 [address] No evidence of acute intracranial abnormality. cervical spine x-ray : NO ACUTE RADIOGRAPHIC ABNORMALITY OF THE CERVICAL SPINE. Orthostatic vitals- negative. HINTS exam done showed peripheral vertigo. Recent echo done ejection fraction 25% 09/05/2025. patient had history of DVT on Coumadin. Patient had heart failure with ejection fraction of 25%. And history of pacemaker and AICD for which GDM T was started. Patient has history of COPD for which home medication was resumed. Patient has history of diabetes mellitus for which was kept on insulin sliding scale. Patient had hyper lipidemia for which atorvastatin was given. Patient has obesity BMI 29.9 for which patient was counseled on lifestyle modifications, diet, exercise. Patient states she feels lot better since admission. Does not have any dizziness on discharge. Patient is stable for discharge and understands discharge plan. Patient is to follow-up with discharge Clinic in 1 week. General: Patient alert and oriented in person, place and time. Patient following commands. Loss of balance HEENT: Normocephalic, atraumatic, moist mucous membranes Respiratory/pulmonary: Clear lungs bilaterally, vesicular murmurs present in almost all lung mcmahan, no associated crackles or wheezes. Cardiovascular: Normal heart sounds S1 and S2 with no associated murmurs Abdomen: Abdomen nondistended, there is no pain to palpation in any of the abdominal quadrants, no palpable masses. Extremities: There is no peripheral edema present at the lower extremities. Peripheral Pulses: 3+ Radial (R). 3+ Radial (L). 3+ Dorsalis pedis (R). 3+ Dorsalis pedis(L) Skin: No rashes or pruritus, there is no sacral edema present at this time. Neurological: Intact cranial nerves with no focal neurologic deficits Patient is to take baclofen 5 mg p.o. daily Ibuprofen 400 mg p.o. b.i.d. meclizine Operations or Procedures ORDERING PHYSICIAN: TAN ORANTES MD PROCEDURE(s): CXRP - CHEST PORTABLE REASON: SOB ORDER NUMBER(s): [id number], ACCESSION NUMBER(s): [id number] CHEST RADIOGRAPH Indication: SOB Technique: Single frontal view of the chest was obtained Comparison: XY CHEST XRAY 1 VIEW on DOS: 09/20/25 FINDINGS: Lines and Tubes: There is a right shoulder prosthesis. AICD/ pacemaker noted. The enteric tube has been removed. Lungs: No focal consolidation. Pleura: No effusion. No pneumothorax. Cardiomediastinal contours: Unremarkable Bones: No acute osseous abnormality. IMPRESSION: 1. No acute cardiopulmonary disease. ATED BY: MELVA CASTELLANOS MD DICTATED DATE/TIME: 10/26/2527 ORDERING PHYSICIAN: TAN ORANTES MD PROCEDURE(s): HWOCT - HEAD WITHOUT CONTRAST REASON: vertigo ORDER NUMBER(s): [id number], ACCESSION NUMBER(s): [id number] EXAM: CT HEAD WITHOUT CONTRAST INDICATION: Vertigo. TECHNIQUE: CT of the head without intravenous contrast. Coronal and sagittal reformatted images are submitted. Radiation Dose : 1. Head: CT Dose: CTDI volume is 59.92 mGy. Dose-length product is 958.7 mGy*cm The dose indicators for CT are the volume Computed Tomography (CT) Dose Index (CTDIvol) and the Dose Length Product (DLP), and are measured in units of mGy and mGy-cm, respectively. These indicators are not patient dose, but values generated from the CT scanner acquisition factors. The report includes radiation exposure data for exposures received during this examination. All CT scans at this medical facility are performed using dose modulation techniques as appropriate to a performed exam including the following: Automated exposure control was utilized; adjustment of the MA and/or KV according to patient size; and use of iterative reconstruction technique. COMPARISON: None FINDINGS: There is no evidence of acute intracranial hemorrhage, extra-axial collection, mass effect, midline shift, herniation or hydrocephalus. 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 The ventricles, sulci and cisterns are age appropriate. The quintanilla-white differentiation is intact. The mastoid air cells are clear. There is mucosal thickening in the left maxillary sinus. No depressed calvarial fracture. The surrounding soft tissues are unremarkable. IMPRESSION: 1. No evidence of acute intracranial abnormality. ATED BY: MELVA CASTELLANOS MD DICTATED DATE/TIME: 10/26/2517 ORDERING PHYSICIAN: LALO MAYA PROCEDURE(s): CERV2 - CERVICAL SPINE 3V REASON: neck pain and dizziness ORDER NUMBER(s): [id number], ACCESSION NUMBER(s): [id number] CLINICAL HISTORY: neck pain and dizziness TECHNIQUE: 3 views of the cervical spine were obtained. COMPARISON: None FINDINGS: The alignment of the cervical spine is normal. The vertebral body heights are maintained. There is mild C3-C4 disc space loss. The prevertebral space is within normal limits. No acute fracture or dislocation is seen. IMPRESSION: NO ACUTE RADIOGRAPHIC ABNORMALITY OF THE CERVICAL SPINE. ATED BY: JAMISON OCONNOR MD DICTATED DATE/TIME: 10/26/251047 SIGNED BY: JAMISON OCONNOR MD SIGNED DATE/TIME: 10/26/251047 CC: Condition at Discharge: Stable Final Diagnosis/Problems List # presyncope, reason unknown # history of previous stroke # history of DVT on Coumadin # heart failure with reduced ejection fraction, EF 25% # history of pacemaker and AICD # H/O COPD # diabetes mellitus type 2 # hyperlipidemia # history of Hodgkin lymphoma # Obesity BMI 29.9 Discharge Disposition: Home Discharge Instruct/Medications Diet: Cardiac 2g Na,low cholest Activity: No Restrictions, As Tolerated Activity comment: Get up slowly from the bed and use walker Follow Up/Referral: F/u in the d/c clinic in one week F/u with PCP in one week Medications: as per EMR Scheduled Atorvastatin Calcium (Atorvastatin Calcium), 1 TAB PO HS, (Reported) Baclofen (Baclofen), 5 MG PO DAILY Benzonatate (Benzonatate), 1 CAP PO TID PRN, (Reported) Budesonide-Formoterol Fumarate (Budesonide/Formoterol Fum 160-4.5 Mcg/Act), 2 PUFF INH BID, (Reported) Carvedilol (Coreg), 3.125 MG OR BID Carvedilol (Carvedilol), 1 TAB PO BID, (Reported) Cetirizine HCl (Allergy Relief), 1 TAB PO DAILY, (Reported) Doxycycline Hyclate (Doxycycline Hyclate), 1 TAB PO BID Dupilumab (Dupixent), 300 MG SC QWEEKLY, (Reported) Empagliflozin (Jardiance), 10 MG PO DAILY Empagliflozin (Jardiance), 1 TAB PO DAILY, (Reported) Furosemide (Lasix), 1 TAB PO DAILY Furosemide (Furosemide), 1 TAB PO DAILY, (Reported) Ketoconazole (Ketoconazole), 1 APPLIC TOP UD, (Reported) Meclizine HCl (Meclizine Hydrochloride), 1 TAB PO DAILY PRN, (Reported) Oseltamivir Phosphate (Tamiflu), 1 CAP PO BID Sacubitril-Valsartan (Entresto 24-26 mg), 0.5 TAB PO BID, (Reported) Warfarin Sodium (Warfarin Sodium), 4 MG PO MonWedFriSatSun, (Reported) Warfarin Sodium (Warfarin Sodium), 6 MG PO TuTh, (Reported) Scheduled PRN Ibuprofen Micronized (Ibuprofen), 400 MG PO BID PRN Discharge Statement: "Patient was advised to return to the ER or call 911 if any headaches, dizziness, shortness of breath, chest pain, abdominal pain, bleeding, fevers, or worsening of medical condition. Patient was counseled about treatment plan, medications, possible side effects, patientverbalized understanding. All questions were answered to the best of my ability. This discharge took greater then 30 minutes in planning, reviewing documentation, counseling the patient, and discussing with other team members." ASSESSMENT ASSESSMENT Assessment intractable nausea/vomiting likely d/t vertigo HFrEF, no exacerbation Visit Coding STANDARD RES Billing Provider: HO RODRIGUEZ MD Date of Service if different f: Oct 28, 2025 Common Visit Codes: [id number] INP/OBS CARE(HIGH) CAROLINE VASQUEZ RESIDENT Oct 28, 2025 17:24
--- NOTE | 2025-10-30 10:38 | ECG ---
[facility] Test Date: 2025-10-27 Test Time: 09:29:01 Pat Name: SANTINO PAZ Department: Room: 0217T B Gender: M [employer] Sales [employer]: : 1955 Requested By: CAROLINE VASQUEZ Order Number: [id number] Reading MD: Bladimir Rodriguez Measurements Intervals [place] Rate: 74 P: 34 UT: 198 QRS: -13 QRSD: 120 T: 124 QT: 416 QTc: 461 Interpretive Statements Normal sinus rhythm Possible Anterior infarct , age undetermined Electronically Signed On 11-05-2025 18:13:31 PST by Bladimir Rodriguez Please click the below link to view image of tracing.
== END 2025-10-28 18:30 | disposition home or self-care (01) | DRG 149 ==
LOC: EDBD 04:47 → ER 04:47 → OVERFLOW 09:45 → TELE-CENTR 10-27 17:58
PROVIDERS: ADMIT Student in an Organized Health Care Education/Training Program; ATTEND Student in an Organized Health Care Education/Training Program
DX: H81.10 Benign paroxysmal vertigo, unspecified ear (principal); I24.9 Acute ischemic heart disease, unspecified; I50.22 Chronic systolic (congestive) heart failure; Z79.01 Long term (current) use of anticoagulants; I11.0 Hypertensive heart disease with heart failure; E11.9 Type 2 diabetes mellitus without complications; E66.9 Obesity, unspecified; J44.89 Other specified chronic obstructive pulmonary disease; R07.89 Other chest pain; K21.9 Gastro-esophageal reflux disease without esophagitis; E78.5 Hyperlipidemia, unspecified; Z68.29 Body mass index [BMI] 29.0-29.9, adult; Z83.3 Family history of diabetes mellitus; Z85.71 Personal history of Hodgkin lymphoma; Z86.718 Personal history of other venous thrombosis and embolism; Z95.0 Presence of cardiac pacemaker; Z86.73 Personal history of transient ischemic attack (TIA), and cerebral infarction without residual deficits
CPT/HCPCS: 36415; 70450; 71045; 72040; 80048; 80053; 80307; 81001; 82248; 82607; 82746; 82962; 83880; 84439; 84443; 84480; 84484; 85025; 85610; 85730; 86850; 86900; 86901; 93005; 99291; G0378; J1815; J2405